=== PATIENT | female | born 1975 | race Caucasian/White ===

== ENCOUNTER 2020-12-11 17:38 | Emergency (ER) | payer BC, SELFPAY ==
[2020-12-11 17:46] VITALS: BP 126/85; PULSE 97; RESP 16; TEMP 36.7; O2SAT 98; BMI 34.5
[2020-12-11 18:32] VITALS: BP 132/79; PULSE 95; RESP 20; O2SAT 97
--- NOTE | 2020-12-11 18:36 | ECG_ITS ---
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
--- NOTE | 2020-12-11 18:36 | XR_ITS ---
WS: [id number] PORTABLE CHEST HISTORY: CP COMPARISON: 04/25/2018 Lungs are clear and well expanded. No pleural effusion or pneumothorax. Cardiac size: Normal. Mediastinum/Aorta: Normal mediastinum. No osseous abnormality seen. XR/XR chest 1V portable [id number] IMPRESSION: Unremarkable portable chest.
[2020-12-11 18:55] LABS: Basophils # 0.1 10^3/uL (0.0-0.1); Basophils % 0.4 %; Eosinophils # 0.3 10^3/uL (0.0-0.8); Eosinophils % 2.5 %; Hematocrit 41.7 % (37.0-47.0); Hemoglobin 13.8 g/dL (11.5-15.3); Lymphocytes # 2.8 10^3/uL (0.8-4.8); Lymphocytes % 24.6 %; Mean Corpuscular HGB Conc 33.1 g/dL (30.0-36.0); Mean Corpuscular Hemoglobin 30.6 pg (28.0-34.0); Mean Corpuscular Volume 92.5 fL (81-99); Mean Platelet Volume 11.1 fL (7.4-10.4); Monocytes # 0.6 10^3/uL (0.2-0.9); Monocytes % 5.4 %; Neutrophils # 7.51 10^3/uL (1.8-7.7); Neutrophils % 66.9 %; Nucleated Red Blood Cells % 0 %; Platelet Count 235 10^3/cmm (130-400); Red Blood Count 4.51 10^6/uL (4.1-5.3); Red Cell Distribution Width 13.2 % (12.1-15.1); White Blood Count 11.2 10^3/uL (4.0-10.0)
[2020-12-11 19:39] VITALS: BP 117/76; PULSE 88; PULSE 90; RESP 20; O2SAT 96
[2020-12-11 19:40] LABS: Troponin(5th) Baseline 6 ng/L (0-10)
[2020-12-11 20:25] LABS: Alanine Aminotransferase 18 U/L (0-33); Alkaline Phosphatase 110 IU/L (35-105); Anion Gap 16.8 (5-19); Aspartate Amino Transferase 11 U/L (0-32); Blood Urea Nitrogen 9 mg/dL (6-20); Carbon Dioxide 23 mmol/L (22-29); Chloride 100 mmol/L (98-107); Globulin 2.4 g/dL (1.3-4.6); Glomerular Filtration Rate 109.1 mL/min (90-130); Glucose 264 mg/dL (65-115); Lipase 38 U/L (13-60); NT Pro B Type Natriuretic Pept 21 pg/mL (0-125); Osmolality Calculated 290 mOsm/kg (285-295); Potassium 3.8 mmol/L (3.5-5.1); Sodium 136 mmol/L (136-145); Total Bilirubin 0.2 mg/dL (0.15-1.2); Total Protein 6.4 g/dL (6.6-8.7)
--- NOTE | 2020-12-11 20:36 | ECG_ITS ---
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 Measurements Intervals [place] Rate: 99 P: 34 UT: 144 QRS: -68 QRSD: 114 T: 45 QT: 352 QTc: 453 Interpretive Statements SINUS RHYTHM PATTERN CONSISTENT WITH PULMONARY DISEASE LEFT ANTERIOR FASCICULAR BLOCK [QRS AXIS <= -45, QR IN I, RS IN II] WARNING: DATA QUALITY MAY AFFECT INTERPRETATION Compared to ECG 04/25/2018 11:28:48 Left anterior fascicular block now present Indeterminate axis no longer present Electronically Signed On 12-12-2020 19:52:21 CDT by Mary Ortiz M.D. [id number] f
[2020-12-11 21:03] LABS: Troponin 5 2HR Delta 0 ABS# (0-10)
--- NOTE | 2020-12-11 21:30 | ED_ITS ---
HPI - Chest Pain General: Chief Complaint: Chest Pain Stated Complaint: CP, L ARM PAIN, PAIN GOING UP L SIDE OF NECK, H/A Time Seen by Provider: 12/11/20 18:20 Source: patient Mode of arrival: ambulatory Limitations: no limitations History of Present Illness: HPI narrative: 45-year-old female patient with a history of diabetes and hypertension who came to the emergency department with chest pain that started about 2 days ago. Pain is substernal, and radiates to her left antibiotic. She has some shortness of breath and the pain is worse on deep breathing. She denies diaphoresis, nausea or vomiting. She reports that about 6 months ago she was diagnosed with COVID-19 and ever since then she has not felt the same. MD complaint: chest pain Onset (ago): day(s) (2) Timing of current episode: episodic Prior episodes: Yes Onset: during rest Pain location: substernal Pain radiation: left arm Severity: moderate Quality: sharp Relieving factors: nothing Exacerbating factors: nothing Associated symptoms: Reports dyspnea; Deny abdominal pain, diaphoresis, fever(s), leg edema, nausea, palpitations, sense of impending doom, syncope or vomiting Treatment prior to arrival: none Review of Systems General: Reports: 10 or more systems reviewed and unremarkable except in HPI and below Const: Denies: fever(s) or diaphoresis Card: Denies: palpitations or syncope Resp: Reports: dyspnea GI: Denies: abdominal pain, nausea or vomiting Physical Exam Const: COMMON NORMALS: no acute distress, average body habitus, patient oriented x3, no limitations, healthy appearing, alert and well nourished HENMT: COMMON NORMALS: normocephalic, atraumatic and moist oral mucous membranes HEAD & SCALP: normocephalic and atraumatic Neck/C-Spine: COMMON NORMALS: no meningeal signs and no JVD Resp: COMMON NORMALS: normal respiratory effort, No retractions, No use of accessory muscles, clear to auscultation bilaterally and percussion normal AUSCULTATION: clear to auscultation bilaterally PERCUSSION: percussion normal Cardio: COMMON NORMALS: no JVD, regular rate, regular rhythm, S1 normal heart sound present, S2 normal heart sound present, No gallops present (Cardio), No clicks present (Cardio), No murmurs present (Cardio), No rub (Cardio) and Peripheral pulses 2+ throughout RATE: regular rate RHYTHM: regular rhythm HEART SOUNDS: S1 normal heart sound present and S2 normal heart sound present PERIPHERAL PULSES: Peripheral pulses 2+ throughout GI: COMMON NORMALS: Normal to inspection, nondistended, normoactive bowel sounds present, Soft to palpation, non-tender, No hepatosplenomegaly present, no masses and no bruits PALPATION: Yes Soft to palpation and Yes No hepatosplenomegaly present Extremity: COMMON NORMALS: normal to inspection, full ROM, capillary refill normal, no calf tenderness and no pedal edema Neuro: COMMON NORMALS: patient oriented x3 SENSORIUM/ORIENTATION: Yes alert MENINGEAL SIGNS: Yes no meningeal signs Skin: COMMON NORMALS: no rashes or lesions noted, no wounds, turgor normal, no jaundice, no petechiae and no mottling GENERAL SKIN EXAM: no rashes or lesions noted and turgor normal Course Reevaluation(s): Reevaluation #1: Discussed her lab and imaging findings with her, negative for acute findings. We will discharge her home with no new medication orders. She voiced understanding and is in agreement with the plan. Time: 21:30 Vital Signs: Vital signs: Vital Signs Temperature 98.1 F 12/11/20 17:46 Pulse Rate 82 12/11/20 21:51 Respiratory Rate 20 H 12/11/20 21:51 Blood Pressure 117/76 12/11/20 19:39 Pulse Oximetry 98 12/11/20 21:51 MDM - Chest Pain MDM Narrative: Medical decision making narrative: 45-year-old female who presented to the emergency department with chest pain. Evaluation in the emergency department was unremarkable and she is discharged home with no new orders. Medical Records: Attestation: I reviewed the patient's medical records. Lab Data: Attestation: I reviewed the patient's lab results. Labs: Lab Results 12/11/20 12/11/20 12/11/20 Range/Units 18:47 18:47 18:47 WBC 11.2 H (4.0-10.0) 10^3/ uL RBC 4.51 (4.1-5.3) 10^6/u L Hgb 13.8 (11.5-15.3) g/dL Hct 41.7 (37.0-47.0) % MCV 92.5 (81-99) fL MCH 30.6 (28.0-34.0) pg MCHC 33.1 (30.0-36.0) g/dL RDW 13.2 (12.1-15.1) % Plt Count 235 (130-400) 10^3/c mm MPV 11.1 H (7.4-10.4) fL Neut % (Auto) 66.9 % Lymph % (Auto) 24.6 % [place]cher % (Auto) 5.4 % Eos % (Auto) 2.5 % Baso % (Auto) 0.4 % Neut # (Auto) 7.51 (1.8-7.7) 10^3/u L Lymph # (Auto) 2.8 (0.8-4.8) 10^3/u L [place]cher # (Auto) 0.6 (0.2-0.9) 10^3/u L Eos # (Auto) 0.3 (0.0-0.8) 10^3/u L Baso # (Auto) 0.1 (0.0-0.1) 10^3/u L Nucleated RBC % (a uto) 0 % Nucleated RBCs # 0.0 /100WBC Sodium 136 (136-145) mmol/L Potassium 3.8 (3.5-5.1) mmol/L Chloride 100 (98-107) mmol/L Carbon Dioxide 23 (22-29) mmol/L Anion Gap 16.8 (5-19) BUN 9 (6-20) mg/dL Creatinine 0.6 (0.5-0.9) mg/dL GFR Calculation 109.1 (90-130) mL/min Glucose 264 H (65-115) mg/dL Calculated Osmolal ity 290 (285-295) mOsm/k g Calcium 9.0 (8.5-10.5) mg/dL Total Bilirubin 0.2 (0.15-1.2) mg/dL AST 11 (0-32) U/L ALT 18 (0-33) U/L Alkaline Phosphata se 110 H (35-105) IU/L Troponin T Baselin e 6 (0-10) ng/L Troponin T 120 Min [place] (0-10) ng/L Delta Troponin T (0-10) ABS# NT-Pro-B Natriuret Pep 21 (0-125) pg/mL Total Protein 6.4 L (6.6-8.7) g/dL Albumin 4.0 (3.5-5.2) g/dL Globulin 2.4 (1.3-4.6) g/dL Lipase 38 (13-60) U/L 12/11/20 Range/Units 20:26 WBC (4.0-10.0) 10^3/ uL RBC (4.1-5.3) 10^6/u L Hgb (11.5-15.3) g/dL Hct (37.0-47.0) % MCV (81-99) fL MCH (28.0-34.0) pg MCHC (30.0-36.0) g/dL RDW (12.1-15.1) % Plt Count (130-400) 10^3/c mm MPV (7.4-10.4) fL Neut % (Auto) % Lymph % (Auto) % [place] % (Auto) % Eos % (Auto) % Baso % (Auto) % Neut # (Auto) (1.8-7.7) 10^3/u L Lymph # (Auto) (0.8-4.8) 10^3/u L [place]cher # (Auto) (0.2-0.9) 10^3/u L Eos # (Auto) (0.0-0.8) 10^3/u L Baso # (Auto) (0.0-0.1) 10^3/u L Nucleated RBC % (a uto) % Nucleated RBCs # /100WBC Sodium (136-145) mmol/L Potassium (3.5-5.1) mmol/L Chloride (98-107) mmol/L Carbon Dioxide (22-29) mmol/L Anion Gap (5-19) BUN (6-20) mg/dL Creatinine (0.5-0.9) mg/dL GFR Calculation (90-130) mL/min Glucose (65-115) mg/dL Calculated Osmolal ity (285-295) mOsm/k g Calcium (8.5-10.5) mg/dL Total Bilirubin (0.15-1.2) mg/dL AST (0-32) U/L ALT (0-33) U/L Alkaline Phosphata se (35-105) IU/L Troponin T Baselin e (0-10) ng/L Troponin T 120 Min [place] 6.00 (0-10) ng/L Delta Troponin T 0 (0-10) ABS# NT-Pro-B Natriuret Pep (0-125) pg/mL Total Protein (6.6-8.7) g/dL Albumin (3.5-5.2) g/dL Globulin (1.3-4.6) g/dL Lipase (13-60) U/L Imaging Data^: CXR: Attestation: I personally reviewed and interpreted this imaging study as follows: My impression: no acute findings EKG Data^: EKG 1: Attestation: I personally reviewed and interpreted this EKG as follows: EKG interpretation date: 12/11/20 EKG interpretation time: 17:45 Prior EKG tracings: not available for review Interpretation: sinus rhythm HR [address] changes EKG 2: Attestation: I personally reviewed and interpreted this EKG as follows: EKG interpretation date: 12/11/20 EKG interpretation time: 19:05 Prior EKG tracings: available for review Interpretation: sinus rhythm HR [address] changes no significant change from earlier Discharge Plan Discharge Patient Disposition: Home Clinical Impression: Non-cardiac chest pain Condition: Stable Prescriptions: Continued buspirone 5 mg tablet 5 - 7.5 mg PO PRN PRN (Reason: Anxiety) RF: 0 atorvastatin 10 mg tablet 10 mg PO DAILY@2100 RF: 0 glipizide 10 mg tablet extended release 24hr 20 mg PO DAILY@0800 RF: 0 gabapentin 100 mg capsule 200 mg PO BEDTIME@2100 RF: 0 albuterol sulfate 90 mcg/actuation Hfa Aerosol Inhaler 2 puff INHALATION BEDTIME@2100 PRN (Reason: Shortness Of Breath) RF: 0 lisinopril 2.5 mg tablet 2.5 mg PO DAILY@0800 RF: 0 Levemir FlexTouch U-100 Insuln 100 unit/mL (3 mL) insulin pen 40 unit SUBCUT DAILY@0800 RF: 0 vit A-vit C-vit I-bimz-qxklga 7,160-113-100 okzg-ba-vqgy Tablet 1 tab PO DAILY@0800 RF: 0 Discharge Orders: Discharge ED (Routine); Ordered 12/11/20 Ordered By: Gaetano Mckee Referrals: Nina Phillip APRN [Primary Care Provider] - 1-3 days Discharge Diet: Usual diet Discharge Activity: Increase activity as tolerated Patient Instructions: Noncardiac Chest Pain (ED) Activity Restrictions/Additional Instructions: Turn for any new or worsening symptoms. Follow-up with your primary care provider within 3 days. Continue home medications. Coding Level of Care Code ED Optical Instrument Specialist for Chg Fwd Exam Comprehensive
[2020-12-11 21:51] VITALS: PULSE 82; RESP 20; O2SAT 98
== END 2020-12-11 21:52 | disposition home or self-care (01) ==
PROVIDERS: Emergency Provider Family Medicine; PCP Nurse Practitioner Family
DX: R07.89 Other chest pain (principal); Z79.4 Long term (current) use of insulin
CPT/HCPCS: 36415; 71045; 80053; 83690; 83880; 84484; 85025; 93005; 99284

== ENCOUNTER 2021-02-22 20:11 | Observation (INO) | payer BC, SELFPAY ==
[2021-02-22 21:11] VITALS: BP 129/90; PULSE 122; RESP 22; TEMP 36.7; O2SAT 96; BMI 34.7
--- NOTE | 2021-02-22 21:26 | XRR_ITS ---
PROCEDURE INFORMATION: Exam: XR Chest Exam date and time: 02/22/2021 9:26 PM Age: 45 years old Clinical indication: Shortness of breath; Additional info: SOB, cough x 2 days. PT had covid in April of 2020 TECHNIQUE: Imaging protocol: XR of the chest. Views: 1 view. COMPARISON: CR XR chest 1V portable [id number] 12/11/2020 6:53 PM FINDINGS: Lungs: Unremarkable. No consolidation. Pleural spaces: Unremarkable. No pleural effusion. No pneumothorax. Heart/Mediastinum: Unremarkable. No cardiomegaly. Bones/joints: Unremarkable. XR/XR chest 1V portable [id number] IMPRESSION: No acute findings.
--- NOTE | 2021-02-22 21:26 | ECG_ITS ---
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 Measurements Intervals [place] Rate: 127 P: 57 CO: 157 QRS: -74 QRSD: 98 T: 62 QT: 320 QTc: 467 Interpretive Statements SINUS TACHYCARDIA MARKED LEFT AXIS DEVIATION [QRS AXIS < -30] POSSIBLE ANTERIOR MYOCARDIAL INFARCTION [30 ms Q WAVE IN V3/V4, OR R < 0.2 mV IN V4], OF INDETERMINATE AGE Compared to ECG 12/11/2020 19:05:10 Myocardial infarct finding now present Sinus rhythm no longer present Electronically Signed On 02-23-2021 22:57:24 CDT by Lisset Meeks M.D. [id number] f
--- NOTE | 2021-02-22 21:32 | ED_ITS ---
HPI - SOB/Dyspnea General: Chief Complaint: Shortness of Breath/Dyspnea Stated Complaint: sob,congestion,cough Time Seen by Provider: 02/22/21 21:23 Source: patient Mode of arrival: ambulatory Limitations: no limitations History of Present Illness: HPI Narrative: 45-year-old female states she is a longtime smoker and gets bronchitis at times. States of last 2 days she has been having a nonproductive cough with a lot of wheezing and some dyspnea. States that her cough is worsened today. She denies any worsening improving factors. She denies any fevers. She has had no known sick contacts. She states this is like her bronchitis in the past. Associated symptoms: Deny abdominal pain, chest pain, fever(s), nausea or vomiting Review of Systems Const: Denies: fever(s), chills, body aches or change in appetite Eyes: Denies: blurry vision or eye discomfort ENMT: Denies: throat pain or dental pain Card: Denies: chest pain Resp: Reports: dyspnea, non-productive cough and wheezing GI: Denies: abdominal pain, nausea, vomiting or diarrhea : Denies: dysuria Musc: Denies: neck pain or back pain Skin/Breast: Denies: rash Neuro: Denies: headache(s) Psych: Denies: depression Ezequiel/Lymph: Denies: easy bruising All/Imm: Denies: urticaria Physical Exam Const: COMMON NORMALS: no acute distress, patient oriented x3 and healthy appearing HENMT: COMMON NORMALS: normocephalic and atraumatic HEAD & SCALP: normocephalic and atraumatic Eye: COMMON NORMALS: Equal, round and reactive pupils present and EOMs intact bilaterally PUPIL: Yes Equal, round and reactive pupils present Neck/C-Spine: COMMON NORMALS: full ROM and supple Chest: COMMONS NORMALS: normal inspection of the chest and normal palpation of entire chest wall Resp: COMMON NORMALS: normal respiratory effort, No retractions and No use of accessory muscles AUSCULTATION: wheezes Cardio: COMMON NORMALS: regular rate, regular rhythm and No murmurs present (Cardio) RATE: regular rate RHYTHM: regular rhythm GI: COMMON NORMALS: Normal to inspection, nondistended, normoactive bowel sounds present, Soft to palpation, non-tender and no masses PALPATION: Yes Soft to palpation Extremity: COMMON NORMALS: normal to inspection and full ROM Neuro: COMMON NORMALS: patient oriented x3, moves all extremities and no focal motor deficits Psych: COMMON NORMALS: mental status grossly normal, Normal thought process present and cooperative THOUGHT PROCESS: Normal thought process present Skin: COMMON NORMALS: no rashes or lesions noted and no wounds GENERAL SKIN EXAM: no rashes or lesions noted Course Vital Signs: Vital signs: Vital Signs Temperature 98.1 F 02/22/21 21:11 Pulse Rate 120 H 02/23/21 00:41 Respiratory Rate 18 02/23/21 00:41 Blood Pressure 115/75 02/23/21 00:41 Pulse Oximetry 94 02/23/21 00:41 MDM - SOB/Dyspnea MDM Narrative: Medical decision making narrative: Patient presents here with dyspnea likely COPD. She still requiring oxygen here after 2 breathing treatments. She has no signs of pneumonia or Covid. She has no signs of pulmonary embolism. I spoke to hospitalist and will admit at this time. Lab Data: Labs: Lab Results 02/22/21 02/22/21 Range/Units 22:37 22:37 WBC 11.9 H (4.0-10.0) 10^3/ uL RBC 4.99 (4.1-5.3) 10^6/u L Hgb 15.1 (11.5-15.3) g/dL Hct 44.5 (37.0-47.0) % MCV 89.2 (81-99) fL MCH 30.3 (28.0-34.0) pg MCHC 33.9 (30.0-36.0) g/dL RDW 13.3 (12.1-15.1) % Plt Count 251 (130-400) 10^3/c mm MPV 11.0 H (7.4-10.4) fL Neut % (Auto) 64.7 % Lymph % (Auto) 25.5 % [place] % (Auto) 7.8 % Eos % (Auto) 0.9 % Baso % (Auto) 0.8 % Neut # (Auto) 7.72 H (1.8-7.7) 10^3/u L Lymph # (Auto) 3.1 (0.8-4.8) 10^3/u L [place] # (Auto) 0.9 (0.2-0.9) 10^3/u L Eos # (Auto) 0.1 (0.0-0.8) 10^3/u L Baso # (Auto) 0.1 (0.0-0.1) 10^3/u L Nucleated RBC % (a uto) 0 % Nucleated RBCs # 0.0 /100WBC Sodium 136 (136-145) mmol/L Potassium 3.6 (3.5-5.1) mmol/L Chloride 98 (98-107) mmol/L Carbon Dioxide 24 (22-29) mmol/L Anion Gap 17.6 (5-19) BUN 6 (6-20) mg/dL Creatinine 0.6 (0.5-0.9) mg/dL GFR Calculation 109.1 (90-130) mL/min Glucose 173 H (65-115) mg/dL Calculated Osmolal ity 284 L (285-295) mOsm/k g Calcium 9.0 (8.5-10.5) mg/dL Total Bilirubin 0.5 (0.15-1.2) mg/dL AST 12 (0-32) U/L ALT 8 (0-33) U/L Alkaline Phosphata se 125 H (35-105) IU/L Total Protein 7.8 (6.6-8.7) g/dL Albumin 4.5 (3.5-5.2) g/dL Globulin 3.3 (1.3-4.6) g/dL Imaging Data^: CXR: Attestation: I personally reviewed and interpreted this imaging study as follows: My impression: no acute abnormality EKG Data^: EKG 1: Attestation: I personally reviewed and interpreted this EKG as follows: EKG Interpretation Date: 02/22/21 EKG interpretation time: 22:50 Interpretation: sinus tach hr [address] or t wave abnormalities qrs 98 qtc 395 Discharge Plan Discharge Patient Disposition: Admitted As Inpatient Admit Provider: Mara Osorio Clinical Impression: Acute exacerbation of chronic obstructive airways disease Condition: Stable Coding Level of Care Code ED Enterprise Integration Developer for Chg Fwd Exam Comprehensive
[2021-02-22 22:02] VITALS: PULSE 120; RESP 20; O2SAT 93
[2021-02-22] MEDS: ipratropium-albuterol 3 mL Neb INHALATION (22:02)
[2021-02-22 22:07] VITALS: PULSE 124; RESP 20; O2SAT 93
[2021-02-22 22:44] LABS: Basophils # 0.1 10^3/uL (0.0-0.1); Basophils % 0.8 %; Eosinophils # 0.1 10^3/uL (0.0-0.8); Eosinophils % 0.9 %; Hematocrit 44.5 % (37.0-47.0); Hemoglobin 15.1 g/dL (11.5-15.3); Lymphocytes # 3.1 10^3/uL (0.8-4.8); Lymphocytes % 25.5 %; Mean Corpuscular HGB Conc 33.9 g/dL (30.0-36.0); Mean Corpuscular Hemoglobin 30.3 pg (28.0-34.0); Mean Corpuscular Volume 89.2 fL (81-99); Monocytes # 0.9 10^3/uL (0.2-0.9); Monocytes % 7.8 %; Neutrophils # 7.72 10^3/uL (1.8-7.7); Neutrophils % 64.7 %; Nucleated Red Blood Cells % 0 %; Platelet Count 251 10^3/cmm (130-400); Red Blood Count 4.99 10^6/uL (4.1-5.3); Red Cell Distribution Width 13.3 % (12.1-15.1); White Blood Count 11.9 10^3/uL (4.0-10.0)
[2021-02-22 23:07] LABS: Alanine Aminotransferase 8 U/L (0-33); Albumin Level 4.5 g/dL (3.5-5.2); Alkaline Phosphatase 125 IU/L (35-105); Anion Gap 17.6 (5-19); Aspartate Amino Transferase 12 U/L (0-32); Blood Urea Nitrogen 6 mg/dL (6-20); Carbon Dioxide 24 mmol/L (22-29); Chloride 98 mmol/L (98-107); Globulin 3.3 g/dL (1.3-4.6); Glomerular Filtration Rate 109.1 mL/min (90-130); Glucose 173 mg/dL (65-115); Osmolality Calculated 284 mOsm/kg (285-295); Potassium 3.6 mmol/L (3.5-5.1); Sodium 136 mmol/L (136-145); Total Bilirubin 0.5 mg/dL (0.15-1.2); Total Protein 7.8 g/dL (6.6-8.7)
[2021-02-22 23:22] VITALS: PULSE 122; RESP 22; O2SAT 91
[2021-02-22 23:32] VITALS: BP 115/88; PULSE 124; RESP 22; O2SAT 91
[2021-02-23] VITALS (13 sets, daily range): BP systolic 100–122; BP diastolic 71–97; PULSE 92–122; RESP 16–20; TEMP 36.4–36.9; O2SAT 86–94
[2021-02-23] MEDS: cefTRIAXone 1,000 MG in sodium chloride 0.9% (plus) 50 ML 100 MG IV (00:34)
[2021-02-23] MEDS: azithromycin 500 MG in sodium chloride 0.9% 250 ML 250 MG IV (01:41)
--- NOTE | 2021-02-23 03:05 | PM.HP ---
Providers/Chief Complaint Admitting Physician: Mara Osorio MD Primary Care Provider: Nina Phillip APRN Chief Complaint: sob,congestion,cough History of Present Illness Chelsy Melendez is a 45 year old female who presented to the emergency room with chief complaint of difficulty breathing. She spent Thursday at the [facility] and then went to the [facility]. On she started having a dry cough. She says she is prone to bronchitis and usually gets it a couple of times a year. She tried to get an appointment with her primary care doctor but was not able to get 1. Her symptoms continued to progress with increasing cough and some low-grade fever and chills. She had nasal congestion alternating between clear and mucoid. Cough occasionally productive of very dark brown sputum. No blood noted. On Thursday night she was more short of breath and wheezing. She used her inhaler twice without any improvement and had acute worsening on Thursday night where she was not able to move much air. She felt like her heart was trying to beat out of her chest during this timeframe. Symptoms became bad enough she came to the emergency room. On arrival she was very tight and oxygen saturations were in the upper 80s. She has never been on oxygen before. She has had 1 prior hospitalization with bronchitis. She received continuous nebulizer treatment x2. Started having coughing after the first 1 and finally began to breathe better after the second 1. She received Solu-Medrol as well as a dose of Rocephin and azithromycin in the ER. She is being admitted for further care she continues to require a couple of liters of oxygen and remains tachycardic. She had Covid last April. Has had some nonrespiratory persistent symptoms from that. Her primary issues around it were related to headaches. She has not had Covid vaccine. Review of Systems Const: Reports: fever(s) (low grades thursday), chills and change in appetite Eyes: Denies: change in vision ENMT: Reports: nasal congestion and post nasal drip; Denies: throat pain Card: Reports: palpitations, edema, swelling of feet/ankles (Sometimes) and other (pressure when she was unable to breathe); Denies: chest pain Resp: Reports: productive cough (dark brown), non-productive cough, wheezing and chest congestion; Denies: dyspnea, pain on inspiration or hemoptysis GI: Reports: nausea; Denies: abdominal pain, vomiting, diarrhea or constipation : Denies: difficulty voiding Musc: Reports: muscle cramps and other (No calf pain) Skin/Breast: Denies: rash or sores Neuro: Reports: headache(s); Denies: difficulty walking Psych: Reports: anxiety (Rarely has to take something); Denies: depression Endo: Reports: other (Currently on menstrual cycle) Ezequiel/Lymph: Denies: easy bleeding Medications/Allergies Home Medications Medication Instructions Recorded Confirmed Last Taken Type albuterol sulfate 2 inh INHALATION Q6H 02/23/21 02/23/21 02/22/21 History albuterol sulfate 2.5 mg INHALATION Q6H PRN 02/23/21 02/23/21 Unknown History buspirone 5 mg PO BID PRN 02/23/21 02/23/21 Unknown History Allergies Allergy/AdvReac Type Severity Reaction Status Date / Time codeine Allergy ADR-Nightma Verified 12/11/20 17:50 re Influenza Virus Vaccines Allergy ADR-Vomitin Verified 12/11/20 17:50 g Additional Medication Information I personally reviewed home medication list and medications received day of admission thus far. PFSH Acute PFSH: Medical History (Updated 02/23/21 @ 06:00 by Mara Osorio MD) Anxiety COPD (chronic obstructive pulmonary disease) Diabetes mellitus, type II Currently diet controlled 3 para 3 Hiatal hernia History of COVID-19 (~04/2020) with some non respiratory persistent symptoms Hx of supraventricular tachycardia Surgical History (Updated 02/23/21 @ 03:11 by Mara Osorio MD) History of colonoscopy (~2016) History of esophagogastroduodenoscopy (EGD) (~2016) History of tubal ligation Family History (Updated 02/23/21 @ 05:26 by Mara Osorio MD) Father Cancer lung Mother Cancer lung Social History (Updated 02/23/21 @ 05:25 by Mara Osorio MD) Smoking and tobacco status: current every day smoker cigarettes Number of cigarettes per day: 11-20 Alcohol intake: current Alcohol intake frequency: holidays/special occasions only Substance/Drug Use: never Household members: spouse Marital status: Female Reproductive History: Date of last menstrual period: 02/19/21 Vitals/I&O/Wt Last Vital Signs Temp 98.1 F 02/23/21 01:30 Pulse 112 H 02/23/21 01:30 Resp 18 02/23/21 01:30 BP 120/84 02/23/21 01:30 Pulse Ox 90 02/23/21 01:30 02/22/21 02/22/21 02/23/21 14:59 22:59 06:59 Intake Total 50 / 50 Balance 50 / 50 Weight last 48 hrs Weight 86.183 kg Physical Exam Narrative: EXAM NARRATIVE: Constitutional: Awake and alert, cooperative HEENT: Pupils are equally reactive, nasopharynx with clear rhinorrhea, boggy turbinates and mild maxillary tenderness right side greater than left, oropharynx is clear Neck: Supple Respiratory: Scattered wheezes right more so than left, improved aeration after coughing Cardiovascular: Tachycardic but regular rhythm, no murmurs Abdomen: Soft, nontender, nondistended Extremities: No pitting edema, no calf tenderness Skin: Dry, no acute rashes or bruises Neuro: Speech clear, face symmetric, moves all extremities Psych: Normal affect Data : 02/22/21 22:37 02/22/21 22:37 Other Labs: Laboratory Results WBC 11.9 10^3/uL (4.0-10.0) H 02/22/21 22:37 RBC 4.99 10^6/uL (4.1-5.3) 02/22/21 22:37 Hgb 15.1 g/dL (11.5-15.3) 02/22/21 22:37 Hct 44.5 % (37.0-47.0) 02/22/21 22:37 MCV 89.2 fL (81-99) 02/22/21 22:37 MCH 30.3 pg (28.0-34.0) 02/22/21 22:37 MCHC 33.9 g/dL (30.0-36.0) 02/22/21 22:37 RDW 13.3 % (12.1-15.1) 02/22/21 22:37 Plt Count 251 10^3/cmm (130-400) 02/22/21 22:37 MPV 11.0 fL (7.4-10.4) H 02/22/21 22:37 Neut % (Auto) 64.7 % 02/22/21 22:37 Lymph % (Auto) 25.5 % 02/22/21 22:37 [place] % (Auto) 7.8 % 02/22/21 22:37 Eos % (Auto) 0.9 % 02/22/21 22:37 Baso % (Auto) 0.8 % 02/22/21 22:37 Neut # (Auto) 7.72 10^3/uL (1.8-7.7) H 02/22/21 22:37 Lymph # (Auto) 3.1 10^3/uL (0.8-4.8) 02/22/21 22:37 [place] # (Auto) 0.9 10^3/uL (0.2-0.9) 02/22/21 22:37 Eos # (Auto) 0.1 10^3/uL (0.0-0.8) 02/22/21 22:37 Baso # (Auto) 0.1 10^3/uL (0.0-0.1) 02/22/21 22:37 Nucleated RBC % (auto) 0 % 02/22/21 22:37 Nucleated RBCs # 0.0 /100WBC 02/22/21 22:37 Sodium 136 mmol/L (136-145) 02/22/21 22:37 Potassium 3.6 mmol/L (3.5-5.1) 02/22/21 22:37 Chloride 98 mmol/L (98-107) 02/22/21 22:37 Carbon Dioxide 24 mmol/L (22-29) 02/22/21 22:37 Anion Gap 17.6 (5-19) 02/22/21 22:37 BUN 6 mg/dL (6-20) 02/22/21 22:37 Creatinine 0.6 mg/dL (0.5-0.9) 02/22/21 22:37 GFR Calculation 109.1 mL/min (90-130) 02/22/21 22:37 Glucose 173 mg/dL (65-115) H 02/22/21 22:37 Calculated Osmolality 284 mOsm/kg (285-295) L 02/22/21 22:37 Calcium 9.0 mg/dL (8.5-10.5) 02/22/21 22:37 Total Bilirubin 0.5 mg/dL (0.15-1.2) 02/22/21 22:37 AST 12 U/L (0-32) 02/22/21 22:37 ALT 8 U/L (0-33) 02/22/21 22:37 Alkaline Phosphatase 125 IU/L (35-105) H 02/22/21 22:37 Total Protein 7.8 g/dL (6.6-8.7) 02/22/21 22:37 Albumin 4.5 g/dL (3.5-5.2) 02/22/21 22:37 Globulin 3.3 g/dL (1.3-4.6) 02/22/21 22:37 Impressions Chest X-Ray 02/22/21 21:26 IMPRESSION: No acute findings. EKG was sinus tachycardia at 127 bpm with some nonspecific changes A&P Assessment and plan (1) Acute exacerbation of chronic obstructive airways disease: With acute bronchitis and I suspect that she may have a degree of some sinusitis or at the very least allergy symptoms. Had hypoxemia requiring oxygen due to what sounds like severe bronchospasm. Improving with current treatment. She has a nebulizer machine at home and some albuterol for this as well as an albuterol inhaler. Status: Acute (2) Diabetes mellitus, type II: Currently diet controlled. She has been out of her medications for a while. She is intolerant of Metformin due to GI symptoms. She had previously been on glipizide and some Levemir. She has lost some weight and her blood sugars have improved. She does have a glucometer at home. Status: Chronic (3) Nicotine dependence, cigarettes, with other nicotine-induced disorders: Status: Chronic Additional A&P Information Currently without any of her usual home medications due to changing insurance and primary provider -out of lisinopril and statin therapy (which she says was due to her diabetes rather than having actual hypertension and hyperlipidemia), glipizide and Levemir Family history of both parents dying from lung cancer Observation admission Continue breathing treatments including some inhaled steroids Flonase and Claritin Augmentin Prednisone Flutter Wean oxygen as able, do not currently anticipate that she will require oxygen therapy upon discharge Sliding scale insulin currently, monitoring blood sugars closely We will need to resume diabetic treatment at home particularly in the setting of being on steroids, had been on glipizide previously and has been on insulin in the past though reports improved blood sugars with weight loss Check hemoglobin A1c Would benefit from resumption of LEIDY inhibitor and statin Check lipid panel Troponins and BNP were normal in the emergency room Repeat EKG Discussed with patient the importance of smoking cessation not only for her pulmonary health but particularly given her family history with both of her parents dying of lung cancer. She would benefit from low-dose CT scan for screening purposes though is under current recommended screening guidelines. We discussed nicotine patch. Time spent 4 minutes regarding smoking cessation. Supportive care otherwise DVT prophylaxis: Lovenox Plans, findings and concerns discussed with patient and she was given an opportunity to ask questions. Anticipated Disposition: Home Code Status: Full code Attestations Medical Necessity Statement*: Currently anticipate a stay less than two midnights in a patient with acute bronchitis/COPD who required 2 continuous nebulizer treatments in the emergency room as well as some oxygen supplementation. Coding Level of Care Code Acute [employer] Operator for Carol Roy Diagnoses Acute exacerbation of chronic obstructive airways disease J44.1 Diabetes mellitus, type II E11.9 Nicotine dependence, cigarettes, with other nicotine-induced disorders F17.218
[2021-02-23] MEDS: enoxaparin 40 mg/0.4 mL Syringe SUBCUT (06:38)
[2021-02-23] MEDS: sodium chlor 0.9% + KCl 20 mEq 20 MEQ/1,000 ML BAG 75 MEQ IV (06:40)
[2021-02-23] MEDS: nicotine 21 mg Patch 1 PATCH TRANSDERMA (06:44)
[2021-02-23 06:57] LABS: Glucose Point of Care 276 mg/dL (70-110)
[2021-02-23 08:06] LABS: Chol HDL Ratio 8.35 mg/dL (0.0-4.40); Cholesterol 217 mg/dL (0-200); HDL Cholesterol 26 mg/dL (60-100); LDL Cholesterol Calculated 159 mg/dL (50-129); LDL HDL Ratio 6.12 RATIO (0.00-3.22); Triglycerides 162 mg/dL (0-150)
[2021-02-23 08:11] LABS: Estmated Average Glucose 186; Hemoglobin A1C 8.1 % (4.0-6.0)
[2021-02-23] MEDS: ipratropium-albuterol 3 mL Neb INHALATION (08:53)
[2021-02-23] MEDS: budesonide 0.5 mg/2 mL Neb INHALATION (08:53)
[2021-02-23] MEDS: amoxicillin-clav 875-125 mg Tablet 1 TAB PO (09:21)
[2021-02-23] MEDS: predniSONE 20 mg Tablet 40 MG PO (09:21)
[2021-02-23] MEDS: loratadine 10 mg Tablet PO (09:22)
[2021-02-23] MEDS: fluticasone nasal spray 16gm Btl 2 SPRAY NASAL (09:23)
[2021-02-23 11:30] LABS: Glucose Point of Care 371 mg/dL (70-110)
--- NOTE | 2021-02-23 12:17 | P.DS_ITS ---
Discharge Providers Date of Admission: 02/23/21 00:17 Date of Discharge: February 23, 2021 Attending Provider at Admission: Mara Osorio MD Attending Provider at Discharge: Marco Lund Primary Care Provider: Nina Phillip APRN Diagnoses at Discharge Discharge Diagnosis (1) Acute exacerbation of chronic obstructive airways disease: Status: Acute (2) Diabetes mellitus, type II: Status: Chronic Permanent problem details: Currently diet controlled (3) Nicotine dependence, cigarettes, with other nicotine-induced disorders: Status: Chronic Reason for Visit Reason for Visit: sob,congestion,cough Hospital Course Hospital Course Pleasant 45-year-old lady with history of COPD, diabetes diet-controlled, current smoker, prior COVID-19 episode, was admitted due to shortness of breath, initially dry cough, with history of bronchitis, with significant wheezing, with exacerbation of COPD, unremarkable chest x-ray, was started on oral steroids, antibiotic, breathing treatments, oxygen support at 2 L, and is feeling better. Was observed in the hospital. Today wheezing has almost entirely subsided. Still diminished air entry, however, subjectively seen doing much better. Ambulating in the room. Currently eating lunch. Feels safe to return home. We will give her a prescription of Augmentin to continue after discharge. Prednisone taper. She has a nebulizer at home, will give her DuoNeb prescription. She is asked to then discuss with primary care provider to switch scheduled prescriptions to something like Spiriva. She needs to quit smoking. Please assist her with this difficult task. Nicotine patches are prescribed. Home O2 evaluation is requested at discharge. Continue follow-up regarding diabetes. A1c in the hospital noted 8.1. Prescription provided for lisinopril and statin. Physical Exam Const: COMMON NORMALS: no acute distress and patient oriented x3 HENMT: COMMON NORMALS: oropharynx normal Neck/C-Spine: COMMON NORMALS: no JVD Resp: COMMON NORMALS: normal respiratory effort and clear to auscultation bilaterally EFFORT & INSPECTION: Yes able to speak in complete sentences AUSCULTATION: clear to auscultation bilaterally and diminished lung sounds (But decent air entry) Cardio: COMMON NORMALS: no JVD, regular rhythm, S1 normal heart sound present, S2 normal heart sound present and No murmurs present (Cardio) RHYTHM: regular rhythm HEART SOUNDS: S1 normal heart sound present and S2 normal heart sound present GI: COMMON NORMALS: Normal to inspection, nondistended, normoactive bowel sounds present, Soft to palpation and non-tender PALPATION: Yes Soft to palpation Extremity: COMMON NORMALS: no joint enlargement and no pedal edema Neuro: COMMON NORMALS: patient oriented x3 and moves all extremities Skin: COMMON NORMALS: no rashes or lesions noted GENERAL SKIN EXAM: no rashes or lesions noted Discharge Data Data Completed and Pending: Completed Studies During Hospitalization Category Date Time Status XR chest 1V marguerite ble [id number] Urgent Exams 02/22/21 21:26 Completed Labs from last 24 hours 02/23/21 02/23/21 02/22/21 10:53 06:17 22:37 WBC RBC Hgb Hct MCV MCH MCHC RDW Plt Count MPV Neut % (Auto) Lymph % (Auto) [place] % (Auto) Eos % (Auto) Baso % (Auto) Neut # (Auto) Lymph # (Auto) [place] # (Auto) Eos # (Auto) Baso # (Auto) Nucleated RBC % (a uto) Nucleated RBCs # Sodium Potassium Chloride Carbon Dioxide Anion Gap BUN Creatinine GFR Calculation Glucose POC Glucose 371 H 276 H Estimat Average Gl ucose Hemoglobin A1c Calculated Osmolal ity Calcium Total Bilirubin AST ALT Alkaline Phosphata se Total Protein Albumin Globulin Triglycerides 162 H Cholesterol 217 H LDL Cholesterol, C alc 159 H HDL Cholesterol 26 L LDL/HDL Ratio 6.12 H Cholesterol/HDL Ra ronnie 8.35 H 02/22/21 02/22/21 02/22/21 22:37 22:37 22:37 WBC 11.9 H RBC 4.99 Hgb 15.1 Hct 44.5 MCV 89.2 MCH 30.3 MCHC 33.9 RDW 13.3 Plt Count 251 MPV 11.0 H Neut % (Auto) 64.7 Lymph % (Auto) 25.5 [place] % (Auto) 7.8 Eos % (Auto) 0.9 Baso % (Auto) 0.8 Neut # (Auto) 7.72 H Lymph # (Auto) 3.1 [place] # (Auto) 0.9 Eos # (Auto) 0.1 Baso # (Auto) 0.1 Nucleated RBC % (a uto) 0 Nucleated RBCs # 0.0 Sodium 136 Potassium 3.6 Chloride 98 Carbon Dioxide 24 Anion Gap 17.6 BUN 6 Creatinine 0.6 GFR Calculation 109.1 Glucose 173 H POC Glucose Estimat Average Gl ucose 186 Hemoglobin A1c 8.1 H Calculated Osmolal ity 284 L Calcium 9.0 Total Bilirubin 0.5 AST 12 ALT 8 Alkaline Phosphata se 125 H Total Protein 7.8 Albumin 4.5 Globulin 3.3 Triglycerides Cholesterol LDL Cholesterol, C alc HDL Cholesterol LDL/HDL Ratio Cholesterol/HDL Ra ronnie Vitals: Last Vital Signs Temp 98.0 F 02/23/21 11:25 Pulse 104 H 02/23/21 11:25 Resp 18 02/23/21 11:25 BP 122/74 02/23/21 11:25 Pulse Ox 92 02/23/21 11:25 Discharge Plan Discharge Patient Disposition: Home Condition: Stable Prescriptions: New ipratropium-albuterol 0.5 mg-3 mg(2.5 mg base)/3 mL Solution For Nebulization 3 ml inhalation Q4H PRN (Reason: Shortness Of Breath) Qty: 90 RF: 3 ipratropium-albuterol 0.5 mg-3 mg(2.5 mg base)/3 mL Solution For Nebulization 3 ml inhalation Q6H.RESPIRATORY Qty: 90 RF: 3 amoxicillin-pot clavulanate 875-125 mg Tablet 1 tab PO BID Qty: 12 RF: 0 lisinopril 2.5 mg tablet 2.5 mg PO DAILY Qty: 90 RF: 0 nicotine 21 mg/24 hr Patch 24 Hour 1 patch transdermal DAILY Qty: 30 RF: 0 prednisone 20 mg Tablet See Rx Instructions .ROUTE .COMPLEX Qty: 11 RF: 0 atorvastatin 40 mg tablet 40 mg PO DAILY Qty: 90 RF: 0 Continued buspirone 5 mg tablet 5 mg PO BID PRN (Reason: Anxiety) RF: 0 albuterol sulfate 90 mcg/actuation HFA aerosol inhaler 2 inh INHALATION Q6H RF: 0 Discontinued albuterol sulfate 2.5 mg /3 mL (0.083 %) solution for nebulization 2.5 mg inhalation Q6H PRN (Reason: Shortness Of Breath) RF: 0 Discharge Orders: Discharge Order (Routine); Ordered 02/23/21 Ordered By: Marco Lund Referrals: Karo Brooks APN [Referring] - 4-7 days Discharge Diet: Diabetic Discharge Activity: Oxygen as instructed Patient Instructions: How to Stop Smoking (GEN), Cigarette Smoking and Your Health (GEN) Activity Restrictions/Additional Instructions: Please stop smoking. Continued smoking will lead to deterioration of the condition of your lungs, worsening lung disease, in addition to other risks including cardiovascular like heart attack, stroke, as well as a number of different cancers. Please continue to work with your primary provider to help you quit smoking. Currently please continue and complete antibiotic course, prednisone taper. Continue nebulizations over the next 5-7 days until you are feeling better, subsequently 1 following up with your primary doctor, please discuss to switch you to inhaler like Spiriva in addition to the rescue albuterol inhaler. Continue follow-up with your primary provider with regards to diabetes. Your A1c is 8.1. In case you develop worsening shortness of breath, or other concerning symptoms, seek medical attention. Discharge Attestations Time Spent in Discharge Care*: greater than 30 min Quality Metrics Clinical Quality Measures During this hospital stay, did patient experience: None Coding Level of Care Code Acute [facility] note Diagnoses Acute exacerbation of chronic obstructive airways disease J44.1 Diabetes mellitus, type II E11.9 Nicotine dependence, cigarettes, with other nicotine-induced disorders F17.218
--- NOTE | 2021-02-23 15:59 | DCPLANNER ---
Did not get a chance to fully interview pt however she needs 02 for d/c. She was presented with a data performance and choice form. [facility], the order was faxed and Jacky brought it over.
--- NOTE | 2021-02-25 18:08 | PC.RESP ---
Smoking Cessation information sent to patient.
== END 2021-02-23 13:55 | disposition home or self-care (01) ==
LOC: ER 02-23 00:24 → MEDSURG 02-23 00:27
PROVIDERS: Admitting Provider Hospitalist; Emergency Provider Emergency Medicine; PCP Nurse Practitioner Family; Visit Provider Internal Medicine
DX: J44.1 Chronic obstructive pulmonary disease with (acute) exacerbation (principal); E11.9 Type 2 diabetes mellitus without complications; F17.218 Nicotine dependence, cigarettes, with other nicotine-induced disorders; Z86.16 Personal history of COVID-19
CPT/HCPCS: 36416; 71045; 80053; 80061; 82962; 83036; 85025; 93005; 94640; 96365; 96366; 96367; 96372; 99285; G0378; J0456; J0696; J1650; J1815; J2930; J7050; J7512; J7611; J7626

== ENCOUNTER 2021-02-27 08:14 | Outpatient (CLI) | payer BC, SELFPAY ==
--- NOTE | 2021-02-27 08:53 | CT_ITS ---
WS: [id number] CT CHEST ANGIOGRAPHY WITH REFORMATS HISTORY: SHORTNESS OF BREATH TECHNIQUE: Contiguous axial images are obtained through the chest during arterial injection of intrav enous contrast. Images are reconstructed to evaluate the pulmonary arteries. MIP imaging also reviewe d. All CT scans at [facility] use at least one of these dose optimization techniques: aut omated exposure control; mA and/or kV adjustment per patient size (includes targeted exams where dose is matched to clinical indication); or iterative reconstruction. CONTRAST: Omnipaque 350; 95 mL IV. DLP: 729.43 mGycm COMPARISON: 04/10/2017 Good opacification of the pulmonary arteries. There are no filling defects. Pulmonary artery size is normal. Normal size aorta. Aberrant RIGHT subclavian artery courses posterior to the esophagus. Kaylee l variant LEFT vertebral artery arises directly from the arch. Heart size is normal. Lungs are hyperinflated. Groundglass areas scattered throughout both lungs. Greatest in the upper lob es. There is also an area of subsegmental atelectasis at the medial RIGHT upper lobe. Atelectasis rena ng the RIGHT heart border. Mildly prominent lymph node at 14 mm in the RIGHT suprahilar location. Sma ller lymph nodes in the LEFT suprahilar region. Similar lymph node on prior study of 04/10/2017. Subse gmental atelectasis at the lingula. Low-attenuation throughout the liver with variable density. Probably due to hepatic steatosis. Visual ized portions of the upper abdomen are negative. Mild increase in thoracic kyphosis. Mild thoracic spondylosis.. CT/CT angio chest PE protcl [id number] IMPRESSION: 1. No pulmonary embolism. 2. Scattered groundglass opacifications greatest in the upper lung bustamante. Hyp ersensitivity pneumonitis and infection should be considered. Pneumonitis is orr perimposed on a background of emphysema. 3. Subsegmental atelectasis in the medial RIGHT upper lobe and indeterminate b ilateral hilar lymph nodes. Hilar lymph node greatest on the RIGHT measuring 14 mm similar to the prior study from 2017. Recommend follow-up chest CT with IV contrast in 3-4 months. If atelectasis does not improve bronchoscopy may be nec essary. 4. Aberrant RIGHT subclavian artery. 5. Hepatic steatosis.
[2021-02-27] MEDS: iohexol 350 mg/mL 100 mL Btl IV (09:12)
== END 2021-02-27 08:15 | disposition home or self-care (01) ==
PROVIDERS: PCP Nurse Practitioner Family; Visit Provider Nurse Practitioner Family
DX: R06.02 Shortness of breath (principal); K76.0 Fatty (change of) liver, not elsewhere classified; Q27.8 Other specified congenital malformations of peripheral vascular system; J98.11 Atelectasis
CPT/HCPCS: 71275; Q9967

== ENCOUNTER 2021-04-03 20:55 | Emergency (ER) | payer BC, SELFPAY ==
[2021-04-03 21:27] VITALS: BP 136/88; PULSE 118; RESP 17; TEMP 37.4; O2SAT 94; BMI 32.9
--- NOTE | 2021-04-03 21:50 | W.ED.COVID ---
HPI - COVID General: Chief Complaint: COVID symptoms Stated Complaint: covid symptoms/direct covid exposure Time Seen by Provider: 04/03/21 21:50 Triage information: Has fever, cough or shortness of breath. Exposure to COVID + person last 14 days History of Present Illness: HPI Narrative: 45-year-old female comes in today for complaints of sinus pressure, body aches, and headache. Patient has a history of Covid last year in April. Patient has had recent exposure with her grandson and hvac design mechanical engineer. Patient reports symptoms started on Thursday. Patient appears mildly unwell but not toxic. Patient does have a history of COPD and tobacco dependence. COVID 19 common symptoms: positive throat pain COVID Results: SARS-CoV-2 Antigen (Rapid) Positive (Negative) H 04/03/21 22:20 04/03/21 Review of Systems General: Reports: 10 or more systems reviewed and unremarkable except in HPI and below ENMT: Reports: throat pain, ear or mastoid pain and nasal discharge [facility] ED PFSH: Medical History (Updated 04/03/21 @ 23:09 by ETIENNE Laureano) Anxiety COPD (chronic obstructive pulmonary disease) Diabetes mellitus, type II Currently diet controlled 3 para 3 Hiatal hernia History of COVID-19 (~04/2020) with some non respiratory persistent symptoms Hx of supraventricular tachycardia Surgical History (Updated 02/23/21 @ 03:11 by Mara Osorio MD) History of colonoscopy (~2016) History of esophagogastroduodenoscopy (EGD) (~2016) History of tubal ligation Family History (Updated 02/23/21 @ 05:26 by Mara Osorio MD) Father Cancer lung Mother Cancer lung Social History (Updated 02/23/21 @ 05:25 by Mara Osorio MD) Smoking and tobacco status: current every day smoker cigarettes Alcohol intake: current Alcohol intake frequency: holidays/special occasions only Household members: spouse Marital status: Female Reproductive History: Date of last menstrual period: 02/19/21 Physical Exam Const: COMMON NORMALS: no acute distress and patient oriented x3 GENERAL APPEARANCE: cooperative HENMT: COMMON NORMALS: normocephalic, TM's normal bilaterally and Normal external nose present HEAD & SCALP: normal to inspection and normocephalic NOSE: Normal external nose present TYMPANIC MEMBRANE: TM's normal bilaterally MOUTH: Normal oral and palatal mucosa present THROAT: posterior oropharynx normal Eye: GENERAL EYE: appearance normal, both eyes and all related structures Neck/C-Spine: COMMON NORMALS: full ROM Lymph: LYMPHATIC: no lymphadenopathy noted Chest: COMMONS NORMALS: normal inspection of the chest Resp: COMMON NORMALS: normal respiratory effort EFFORT & INSPECTION: Yes able to speak in complete sentences AUSCULTATION: wheezes Cardio: COMMON NORMALS: regular rate and regular rhythm RATE: regular rate RHYTHM: regular rhythm GI: COMMON NORMALS: non-tender Back/Pelvis: COMMON NORMALS: thoracic and lumbar spine normal to inspection Extremity: COMMON NORMALS: normal to inspection Neuro: COMMON NORMALS: patient oriented x3 and moves all extremities Psych: COMMON NORMALS: mental status grossly normal and cooperative Skin: COMMON NORMALS: no rashes or lesions noted GENERAL SKIN EXAM: no rashes or lesions noted Course Vital Signs: Vital signs: Vital Signs Temperature 98.7 F 04/03/21 23:31 Pulse Rate 119 H 04/03/21 23:31 Respiratory Rate 18 04/03/21 23:31 Blood Pressure 139/90 04/03/21 23:31 Pulse Oximetry 95 04/03/21 23:31 MDM - COVID MDM Narrative: Medical decision making narrative: 45-year-old female comes in today with complaints of sinus headache, nasal drainage and sore throat, and some mild shortness of breath. Patient does have a history of COPD. Patient also has a history of COVID-19 in April 2020. On exam patient has wheezing throughout lung [place]. Although this is patient's normal for due to her continued smoking. Patient appears well. Patient appears no acute distress. Vital signs are normal. Differential diagnosis includes but not limited to COVID-19, asthma, exacerbation of COPD, seasonal allergies. COVID-19 test was positive. Patient's vital signs were normal. No further testing was done at this time. Patient was in no acute distress and was alert oriented talking well. Patient was suggested to go ahead and get monoclonal antibody infusion due to her history. Patient reported understanding agreed to plan. Case management will assist with follow-up for infusion of monoclonal antibodies. Lab Data: Labs: Lab Results 04/03/21 Range/Units 22:20 SARS-CoV-2 Ag (Rap id) Positive H (Negative) COVID Results: SARS-CoV-2 Antigen (Rapid) Positive (Negative) H 04/03/21 22:20 04/03/21 Discharge Plan Discharge Patient Disposition: Home Clinical Impression: COVID-19 Condition: Stable Prescriptions: No Action buspirone 5 mg tablet 5 mg PO BID PRN (Reason: Anxiety) RF: 0 albuterol sulfate 90 mcg/actuation HFA aerosol inhaler 2 inh INHALATION Q6H RF: 0 ipratropium-albuterol 0.5 mg-3 mg(2.5 mg base)/3 mL Solution For Nebulization 3 ml inhalation Q6H.RESPIRATORY Qty: 90 RF: 3 ipratropium-albuterol 0.5 mg-3 mg(2.5 mg base)/3 mL Solution For Nebulization 3 ml inhalation Q4H PRN (Reason: Shortness Of Breath) Qty: 90 RF: 3 amoxicillin-pot clavulanate 875-125 mg Tablet 1 tab PO BID Qty: 12 RF: 0 prednisone 20 mg Tablet See Rx Instructions .ROUTE .COMPLEX Qty: 11 RF: 0 nicotine 21 mg/24 hr Patch 24 Hour 1 patch transdermal DAILY Qty: 30 RF: 0 lisinopril 2.5 mg tablet 2.5 mg PO DAILY Qty: 90 RF: 0 atorvastatin 40 mg tablet 40 mg PO DAILY Qty: 90 RF: 0 Discharge Orders: Discharge ED (Routine); Ordered 04/03/21 Ordered By: Brady العراقي Discharge Diet: Usual diet Discharge Activity: Increase activity as tolerated Patient Instructions: Viral Syndrome (ED), Opioid Safety Activity Restrictions/Additional Instructions: Drink plenty of fluids. Use acetaminophen and ibuprofen for pain and discomfort. Continue with routine medications as directed. Follow-up with primary care as needed. Case management will contact you regarding monoclonal antibody infusion. Stand Alone Forms: Work/School Release Coding Level of Care Code ED Regional Facilities Manager for Carol Fwd Exam Comprehensive
[2021-04-03 22:49] LABS: SARS Covid-2 Antigen Positive (Negative)
[2021-04-03 23:31] VITALS: BP 139/90; PULSE 119; RESP 18; TEMP 37.1; O2SAT 95
--- NOTE | 2021-04-04 10:08 | DCPLANNER ---
manager of employee relations had order to schedule the monoclonal antibody infusion. manager of employee relations faxed order to centralized scheduling so that it could be scheduled.
== END 2021-04-03 23:32 | disposition home or self-care (01) ==
PROVIDERS: Emergency Provider Nurse Practitioner Family
DX: U07.1 COVID-19 (principal); J44.9 Chronic obstructive pulmonary disease, unspecified; E11.9 Type 2 diabetes mellitus without complications; F17.210 Nicotine dependence, cigarettes, uncomplicated
CPT/HCPCS: 87426; 99282

== ENCOUNTER 2021-04-09 05:04 | Outpatient (CLI) | payer BC, SELFPAY ==
[2021-04-09 05:40] VITALS: BP 134/94; PULSE 98; RESP 16; TEMP 36.8; O2SAT 97; BMI 32.9
--- NOTE | 2021-04-09 07:03 | W.ED.GENADLT ---
HPI - General Adult History of Present Illness: HPI narrative: This patient presents to the emergency department for outpatient monoclonal antibody infusion due to COVID-19. Discussed at length with patient about signs and symptoms and any allergic reaction responses. Patient had no further questions and elected to proceed with monoclonal antibody infusion. Nursing staff will monitor. Patient has had no shortness of breath no fever. Pulse ox greater than 92% on room air MD complaint: Monoclonal antibody infusion for COVID-19 Associated symptoms: Reports cough; Deny chest pain, dyspnea, headache(s), nausea, rash, palpitations or vomiting Review of Systems General: Reports: 10 or more systems reviewed and unremarkable except in HPI and below Const: Denies: fever(s), chills, body aches or fatigue Eyes: Denies: change in vision or blurry vision ENMT: Denies: throat pain, hoarseness or mouth pain Card: Denies: chest pain, palpitations, irregular heart rhythm, edema, swelling of feet/ankles or lightheadedness Resp: Denies: dyspnea, productive cough, non-productive cough, wheezing or pain on inspiration GI: Denies: abdominal pain, nausea or vomiting : Denies: flank pain, difficulty voiding, dysuria, urinary frequency, urinary urgency or urinary hesitancy Musc: Denies: neck pain, back pain, extremity pain, extremity swelling, joint pain, joint swelling, joint redness, joint warmth or limited range of motion Skin/Breast: Denies: rash, pruritus, erythema or skin tenderness Neuro: Denies: headache(s), numbness in extremities or weakness in extremities Psych: Denies: anxiety or depression PFSH ED PFSH: Medical History Anxiety COPD (chronic obstructive pulmonary disease) Diabetes mellitus, type II Currently diet controlled 3 para 3 Hiatal hernia History of COVID-19 (~04/2020) with some non respiratory persistent symptoms Hx of supraventricular tachycardia Surgical History History of colonoscopy (~2016) History of esophagogastroduodenoscopy (EGD) (~2017) History of tubal ligation Family History Father Cancer lung Mother Cancer lung Social History Smoking and tobacco status: current every day smoker cigarettes Alcohol intake: current Alcohol intake frequency: holidays/special occasions only Household members: spouse Marital status: Female Reproductive History: Date of last menstrual period: 02/19/21 Physical Exam Const: COMMON NORMALS: no acute distress, average body habitus, patient oriented x3, no limitations, healthy appearing, alert and well nourished HENMT: COMMON NORMALS: normocephalic, atraumatic, hearing grossly normal bilaterally, external ears normal, EAC's normal, TM's normal bilaterally, Normal external nose present, Normal nasal mucous membranes and turbinates present, moist oral mucous membranes, oropharynx normal, dentition normal and gingiva normal HEAD & SCALP: normocephalic and atraumatic NOSE: Normal external nose present and Normal nasal mucous membranes and turbinates present EXTERNAL EAR: Yes external ears normal EXTERNAL AUDITORY CANAL: EAC's normal TYMPANIC MEMBRANE: TM's normal bilaterally Neck/C-Spine: COMMON NORMALS: full ROM, no lymphadenopathy, supple, no meningeal signs, no JVD, Thyroid normal and No carotid bruits THYROID: Thyroid normal Chest: COMMONS NORMALS: normal inspection of the chest, normal palpation of entire chest wall, normal inspection of the breasts and normal palpation of the breasts Breast/axilla inspection: Yes normal inspection of the breasts BREAST/AXILLA PALPATION: Yes normal palpation of the breasts Resp: COMMON NORMALS: normal respiratory effort, No retractions, No use of accessory muscles, clear to auscultation bilaterally and percussion normal AUSCULTATION: clear to auscultation bilaterally PERCUSSION: percussion normal Cardio: COMMON NORMALS: no JVD, regular rate, regular rhythm, S1 normal heart sound present, S2 normal heart sound present, No gallops present (Cardio), No clicks present (Cardio), No murmurs present (Cardio), No rub (Cardio) and Peripheral pulses 2+ throughout RATE: regular rate RHYTHM: regular rhythm HEART SOUNDS: S1 normal heart sound present and S2 normal heart sound present PERIPHERAL PULSES: Peripheral pulses 2+ throughout GI: COMMON NORMALS: Normal to inspection, nondistended, normoactive bowel sounds present, Soft to palpation, non-tender, No hepatosplenomegaly present, no masses and no bruits PALPATION: Yes Soft to palpation and Yes No hepatosplenomegaly present Back/Pelvis: COMMON NORMALS: thoracic and lumbar spine normal to inspection, no thoracic nor lumbar tenderness, thoraco-lumbar ROM normal and straight leg raise negative bilaterally Extremity: COMMON NORMALS: normal to inspection, full ROM, capillary refill normal, no joint enlargement, no clubbing, cyanosis or edema, no calf tenderness and no pedal edema Neuro: COMMON NORMALS: patient oriented x3 SENSORIUM/ORIENTATION: Yes alert MENINGEAL SIGNS: Yes no meningeal signs Course Vital Signs: Vital signs: Vital Signs Temperature 98.3 F 04/09/21 05:40 Pulse Rate 98 04/09/21 05:40 Respiratory Rate 16 04/09/21 05:40 Blood Pressure 134/94 04/09/21 05:40 Pulse Oximetry 97 04/09/21 05:40 Discharge Plan Discharge Prescriptions: No Action buspirone 5 mg tablet 5 mg PO BID PRN (Reason: Anxiety) RF: 0 albuterol sulfate 90 mcg/actuation HFA aerosol inhaler 2 inh INHALATION Q6H RF: 0 ipratropium-albuterol 0.5 mg-3 mg(2.5 mg base)/3 mL Solution For Nebulization 3 ml inhalation Q6H.RESPIRATORY Qty: 90 RF: 3 ipratropium-albuterol 0.5 mg-3 mg(2.5 mg base)/3 mL Solution For Nebulization 3 ml inhalation Q4H PRN (Reason: Shortness Of Breath) Qty: 90 RF: 3 amoxicillin-pot clavulanate 875-125 mg Tablet 1 tab PO BID Qty: 12 RF: 0 prednisone 20 mg Tablet See Rx Instructions .ROUTE .COMPLEX Qty: 11 RF: 0 nicotine 21 mg/24 hr Patch 24 Hour 1 patch transdermal DAILY Qty: 30 RF: 0 lisinopril 2.5 mg tablet 2.5 mg PO DAILY Qty: 90 RF: 0 atorvastatin 40 mg tablet 40 mg PO DAILY Qty: 90 RF: 0 Coding Level of Care Code ED Credit Risk Associate for Carol Roy
[2021-04-09 07:30] VITALS: BP 117/81; PULSE 92; TEMP 36.8; O2SAT 94
[2021-04-09 08:34] VITALS: BP 133/79; PULSE 107; TEMP 36.8; O2SAT 97
--- NOTE | 2021-04-17 15:43 | DCPLANNER ---
operations project manager had message that patient received the monoclonal antibody infusion. operations project manager called to check on patient, to see how she was feeling. Patient stated that before the infusion, she had a headache, body aches, fever. Patient stated that after the infusion she did not have a headache, she did not have a fever and she felt better.
== END 2021-04-09 05:05 | disposition home or self-care (01) ==
LOC: ER 05:05
PROVIDERS: Visit Provider Nurse Practitioner Family
DX: U07.1 COVID-19 (principal)

== ENCOUNTER 2021-04-27 22:50 | Emergency (ER) | payer BC, SELFPAY ==
[2021-04-27 23:01] VITALS: BP 139/93; PULSE 95; RESP 16; TEMP 36.8; BMI 33.3
--- NOTE | 2021-04-27 23:08 | XRR_ITS ---
PROCEDURE INFORMATION: Exam: XR Chest Exam date and time: 04/27/2021 11:08 PM Age: 45 years old Clinical indication: Chest pressure; Patient HX: Chest pain; Additional info: Cp TECHNIQUE: Imaging protocol: XR of the chest. Views: 1 view. COMPARISON: CR XR chest 1V portable [id number] 02/22/2021 9:27 PM FINDINGS: Lungs: Unremarkable. No consolidation. Pleural spaces: Unremarkable. No pleural effusion. No pneumothorax. Heart/Mediastinum: Unremarkable. No cardiomegaly. Bones/joints: Unremarkable. XR/XR chest 1V portable [id number] IMPRESSION: Negative for infiltrate
--- NOTE | 2021-04-27 23:08 | ECG_ITS ---
[facility] Test Date: 2021-04-27 Pat Name: Chelsy Melendez Department: Room: Gender: Female Ethnographer: : 1975 Requested By: Aguila Mack Order Number: [id number] Dio MD: Mary Ortiz M.D. Measurements Intervals Hester Rate: 96 P: 57 AK: 168 QRS: -21 QRSD: 97 T: 48 QT: 358 QTc: 454 Interpretive Statements SINUS RHYTHM BORDERLINE LEFT AXIS DEVIATION [QRS AXIS < -20] Compared to ECG 02/22/2021 22:50:11 Sinus tachycardia no longer present Myocardial infarct finding no longer present Electronically Signed On 04-28-2021 16:29:58 CDT by Mary Ortiz M.D. [id number]
--- NOTE | 2021-04-27 23:18 | ED_ITS ---
HPI - Chest Pain General: Chief Complaint: Chest Pain Stated Complaint: Chest Pain\Stabbing between shoulder blades Time Seen by Provider: 04/27/21 23:07 History of Present Illness: HPI narrative: 45-year-old female with no prior history of heart disease. She has just gotten over Covid for the second time. She was diagnosed on 04/03. She was feeling actually pretty well until yesterday, when she had a couple of coughing fits, and got some sharp pain in he r chest that radiated into her upper back between her shoulder blades. She has had this pain on and off several times since then. She had a couple of times tonight. With continuance of pain on and off, cough, some shortness of breath, rattling in her chest, she decided to come to the emergency room. MD complaint: chest pain and chest heaviness Pertinent past history: other Onset (ago): hour(s) (30) Timing of current episode: episodic Prior episodes: Yes Onset: during rest Pain location: substernal Pain radiation: back Severity: moderate Quality: tightness and sharp Relieving factors: other (Coughing) Exacerbating factors: nothing Context: recent illness Associated symptoms: Reports dyspnea and leg edema (Transient); Deny abdominal pain, diaphoresis, fever(s), palpitations or vomiting Treatment prior to arrival: none Review of Systems Const: Denies: fever(s) or diaphoresis ENMT: Reports: throat pain and hoarseness Card: Reports: chest pain; Denies: palpitations Resp: Reports: dyspnea GI: Denies: abdominal pain or vomiting [facility] ED PFSH: Medical History Anxiety COPD (chronic obstructive pulmonary disease) Diabetes mellitus, type II Currently diet controlled 3 para 3 Hiatal hernia History of COVID-19 (~04/2020) with some non respiratory persistent symptoms Hx of supraventricular tachycardia Surgical History History of colonoscopy (~2016) History of esophagogastroduodenoscopy (EGD) (~2016) History of tubal ligation Family History Father Cancer lung Mother Cancer lung Social History Smoking and tobacco status: current every day smoker cigarettes Alcohol intake: current Alcohol intake frequency: holidays/special occasions only Household members: spouse Marital status: Female Reproductive History: Date of last menstrual period: 02/19/21 Physical Exam Const: COMMON NORMALS: no acute distress, patient oriented x3 and alert GENERAL APPEARANCE: not frail appearing HENMT: COMMON NORMALS: normocephalic HEAD & SCALP: normocephalic Eye: COMMON NORMALS: Equal, round and reactive pupils present, EOMs intact bilaterally and no scleral icterus PUPIL: Yes Equal, round and reactive pup ils present Chest: COMMONS NORMALS: normal inspection of the chest Resp: EFFORT & INSPECTION: Yes tachypneic, No respiratory distress and Yes uses accessory muscles AUSCULTATION: wheezes scattered wheezes Cardio: COMMON NORMALS: regular rate and regular rhythm RATE: regular rate RHYTHM: regular rhythm HEART SOUNDS: no murmurs GI: COMMON NORMALS: Normal to inspection, nondistended, normoactive bowel so unds present and Soft to palpation PALPATION: Yes Soft to palpation Neuro: COMMON NORMALS: patient oriented x3 SENSORIUM/ORIENTATION: Yes alert Course Vital Signs: Vital signs: Vital Signs Temperature 98.2 F 04/27/21 23:01 Pulse Rate 95 04/27/21 23:01 Respiratory Rate 16 04/27/21 23:01 Blood Pressure 139/93 04/27/21 23:01 MDM - Chest Pain MDM Narrative: Medical decision making narrative: 45-year-old female present ing with chest pain radiating into her upper back. Somewhat pleuritic in nature. She has had a cough as well. She has recently had Covid and recovered. Chest x-ray is negative. D-dimer is negative. Troponin is negative. EKG shows a normal sinus rhythm without acute ST changes. White blood cell count is 10. Glucose is in the 200s. We will treat with low-dose steroid, antibiotic coverage Lab Data: Labs: Lab Results 04/27/21 04/27/21 04/27/21 Range/Units 23:03 23:03 23:03 WBC 10.7 H (4.0-10.0) 10^3/ uL RBC 4.48 (4.1-5.3) 10^6/u L Hgb 13.4 (11.5-15.3) g/dL Hct 40.2 (37.0-47.0) % MCV 89.7 (81-99) fl MCH 29.9 (28.0-34.0) pg MCHC 33.3 (30.0-36.0) g/dL RDW 13.8 (12.1-15.1) % Plt Count 238 (130-400) 10^3/c mm MPV 11.5 H (7.4-10.4) fL Neut % (Auto) 65.9 % Lymph % (Auto) 23.8 % [place] % (Auto) 6.2 % Eos % (Auto) 3.1 % Baso % (Auto) 0.7 % Neut # (Auto) 7.07 (1.8-7.7) 10^3/u L Lymph # (Auto) 2.6 (0.8-4.8) 10^3/u L [place] # (Auto) 0.7 (0.2-0.9) 10^3/u L Eos # (Auto) 0.3 (0.0-0.8) 10^3/u L Baso # (Auto) 0.1 (0.0-0.1) 10^3/u L Nucleated RBC % (a uto) 0 % Nucleated RBCs # 0.0 /100WBC D-Dimer <= 0.27 (0-0.59) ug/mIFE U Sodium 134 L (136-145) mmol/L Potassium 4.0 (3.5-5.1) mmol/L Chloride 99 (98-107) mmol/L Carbon Dioxide 25 (22-29) mmol/L Anion Gap 14.0 (5-19) BUN 13 (6-20) mg/dL Creatinine 0.7 (0.5-0.9) mg/dL GFR Calculation 91.3 (90-130) mL/min Glucose 231 H (65-115) mg/dL Calculated Osmolal ity 285 (285-295) mOsm/k g Calcium 9.0 (8.5-10.5) mg/dL Total Bilirubin 0.3 (0.15-1.2) mg/dL AST 9 (0-32) U/L ALT 14 (0-33) U/L Alkaline Phosphata se 121 H (35-105) IU/L Creatine Kinase 45 (26-192) U/L Troponin T Baselin e (0-10) ng/L NT-Pro-B Natriuret Pep 5 (0-125) pg/mL Total Protein 6.2 L (6.6-8.7) g/dL Albumin 4.1 (3.5-5.2) g/dL Globulin 2.1 (1.3-4.6) g/dL 04/27/21 Range/Units 23:03 WBC (4.0-10.0) 10^3/ uL RBC (4.1-5.3) 10^6/u L Hgb (11.5-15.3) g/dL Hct (37.0-47.0) % MCV (81-99) fl MCH (28.0-34.0) pg MCHC (30.0-36.0) g/dL RDW (12.1-15.1) % Plt Count (130-400) 10^3/c mm MPV (7.4-10.4) fL Neut % (Auto) % Lymph % (Auto) % [place] % (Auto) % Eos % (Auto) % Baso % (Auto) % Neut # (Auto) (1.8-7.7) 10^3/u L Lymph # (Auto) (0.8-4.8) 10^3/u L [place] # (Auto) (0.2-0.9) 10^3/u L Eos # (Auto) (0.0-0.8) 10^3/u L Baso # (Auto) (0.0-0.1) 10^3/u L Nucleated RBC % (a uto) % Nucleated RBCs # /100WBC D-Dimer (0-0.59) ug/mIFE U Sodium (136-145) mmol/L Potassium (3.5-5.1) mmol/L Chloride (98-107) mmol/L Carbon Dioxide (22-29) mmol/L Anion Gap (5-19) BUN (6-20) mg/dL Creatinine (0.5-0.9) mg/dL GFR Calculation (90-130) mL/min Glucose (65-115) mg/dL Calculated Osmolal ity (285-295) mOsm/k g Calcium (8.5-10.5) mg/dL Total Bilirubin (0.15-1.2) mg/dL AST (0-32) U/L ALT (0-33) U/L Alkaline Phosphata se (35-105) IU/L Creatine Kinase (26-192) U/L Troponin T Baselin e 6 (0-10) ng/L NT-Pro-B Natriuret Pep (0-125) pg/mL Total Protein (6.6-8.7) g/dL Albumin (3.5-5.2) g/dL Globulin (1.3-4.6) g/dL Discharge Plan Discharge Patient Disposition: Home Clinical Impression: Acute bronchitis Qualifiers: Bronchitis organism: unspecified organism Qualified Code(s): J20.9 - Acute bronchitis, unspecified Chest pain Qualifiers: Chest pain type: unspecified Qualified Code(s): R07.9 - Chest pain, unspecified Condition: Stable Prescriptions: New doxycycline hyclate 100 mg capsule 100 mg PO BID 7 Days Qty: 14 RF: 0 prednisone 10 mg tablet See Rx Instructions .ROUTE .COMPLEX Qty: 11 RF: 0 No Action buspirone 5 mg tablet 5 mg PO BID PRN (Reason: Anxiety) RF: 0 albuterol sulfate 90 mcg/actuation HFA aerosol inhaler 2 inh INHALATION Q6H RF: 0 ipratropium-albuterol 0.5 mg-3 mg(2.5 mg base)/3 mL Solution For Nebulization 3 ml inhalation Q6H.RESPIRATORY Qty: 90 RF: 3 ipratropium-albuterol 0.5 mg-3 mg(2.5 mg base)/3 mL Solution For Nebulization 3 ml inhalation Q4H PRN (Reason: Shortness Of Breath) Qty: 90 RF: 3 amoxicillin-pot clavulanate 875-125 mg Tablet 1 tab PO BID Qty: 12 RF: 0 prednisone 20 mg Tablet See Rx Instructions .ROUTE .COMPLEX Qty: 11 RF: 0 nicotine 21 mg/24 hr Patch 24 Hour 1 patch transdermal DAILY Qty: 30 RF: 0 lisinopril 2.5 mg tablet 2.5 mg PO DAILY Qty: 90 RF: 0 atorvastatin 40 mg tablet 40 mg PO DAILY Qty: 90 RF: 0 Discharge Orders: Discharge ED (Routine); Ordered 04/28/21 Ordered By: Aguila Campbell Discharge Diet: Advance as tolerated Discharge Activity: Increase activity as tolerated Patient Instructions: Chest Pain (ED), Acute Bronchitis (ED) Activity Restrictions/Additional Instructions: Return for worsening pain despite treatment, worsening shortness of breath despite treatment, fever greater than 100, any other concerning symptoms. Coding Level of Care Code ED Salesperson [employer]ial Plots for Chg Fwd Exam Detailed
[2021-04-27 23:19] LABS: Basophils # 0.1 10^3/uL (0.0-0.1); Basophils % 0.7 %; Eosinophils # 0.3 10^3/uL (0.0-0.8); Eosinophils % 3.1 %; Hematocrit 40.2 % (37.0-47.0); Hemoglobin 13.4 g/dL (11.5-15.3); Lymphocytes # 2.6 10^3/uL (0.8-4.8); Lymphocytes % 23.8 %; Mean Corpuscular HGB Conc 33.3 g/dL (30.0-36.0); Mean Corpuscular Hemoglobin 29.9 pg (28.0-34.0); Mean Corpuscular Volume 89.7 fl (81-99); Mean Platelet Volume 11.5 fL (7.4-10.4); Monocytes # 0.7 10^3/uL (0.2-0.9); Monocytes % 6.2 %; Neutrophils # 7.07 10^3/uL (1.8-7.7); Neutrophils % 65.9 %; Nucleated Red Blood Cells % 0 %; Platelet Count 238 10^3/cmm (130-400); Red Blood Count 4.48 10^6/uL (4.1-5.3); Red Cell Distribution Width 13.8 % (12.1-15.1); White Blood Count 10.7 10^3/uL (4.0-10.0)
[2021-04-27 23:33] LABS: D Dimer <= 0.27 ug/mIFEU (0-0.59)
[2021-04-27 23:43] LABS: Alanine Aminotransferase 14 U/L (0-33); Albumin Level 4.1 g/dL (3.5-5.2); Alkaline Phosphatase 121 IU/L (35-105); Aspartate Amino Transferase 9 U/L (0-32); Blood Urea Nitrogen 13 mg/dL (6-20); Carbon Dioxide 25 mmol/L (22-29); Chloride 99 mmol/L (98-107); Creatine Phosphokinase 45 U/L (26-192); Globulin 2.1 g/dL (1.3-4.6); Glomerular Filtration Rate 91.3 mL/min (90-130); Glucose 231 mg/dL (65-115); NT Pro B Type Natriuretic Pept 5 pg/mL (0-125); Osmolality Calculated 285 mOsm/kg (285-295); Sodium 134 mmol/L (136-145); Total Bilirubin 0.3 mg/dL (0.15-1.2); Total Protein 6.2 g/dL (6.6-8.7)
[2021-04-27 23:44] LABS: Troponin(5th) Baseline 6 ng/L (0-10)
[2021-04-28 00:21] VITALS: BP 127/78; PULSE 98; RESP 18; O2SAT 96
[2021-04-28] MEDS: predniSONE 20 mg Tablet PO (00:21)
[2021-04-28] MEDS: doxycycline 100 mg Tablet PO (00:21)
== END 2021-04-28 00:26 | disposition home or self-care (01) ==
PROVIDERS: Emergency Provider Emergency Medicine
DX: J20.9 Acute bronchitis, unspecified (principal); R07.9 Chest pain, unspecified; J44.9 Chronic obstructive pulmonary disease, unspecified; E11.9 Type 2 diabetes mellitus without complications; F17.210 Nicotine dependence, cigarettes, uncomplicated
CPT/HCPCS: 71045; 80053; 82550; 83880; 84484; 85025; 85378; 93005; 99283; J7512

== ENCOUNTER 2021-07-29 18:18 | Emergency (ER) | payer BC, SELFPAY ==
[2021-07-29 18:25] VITALS: BP 154/80; PULSE 111; RESP 24; TEMP 36.8; O2SAT 96; BMI 34.5
--- NOTE | 2021-07-29 18:50 | W.ED.GENADLT ---
HPI - General Adult General: Chief complaint: Weakness Stated complaint: HYPERGLYCEMIA Time Seen by Provider: 07/29/21 18:19 History of Present Illness: HPI narrative: Patient is a 46-year-old female with history of type 2 diabetes on glipizide and regular insulin presenting to the emergency room for concerns of hyperglycemia. Patient recently took on his own this morning for bronchitis-like symptoms. Since then, patient has had numbness around her mouth, left cheek paresthesia, and nasuea. Patient went to see her primary care provider was found to have a glucose in the 500s. Prior history of DKA. Patient was told to come to the emergency room for further evaluation. Patient says that her glucose usually runs in the 200s when she takes prednisone, it usually bumps up to 300s. Patient denies any history of DKA. Denies any fever/chills, chest pain, shortness breath, palpitation, diarrhea, melena or hematochezia, polyuria, dysuria. Paitent levemer 40 units earlier this morning at 10am. Glucose per EMS was 560 initially that improved to 480s on reepat. Onset: unknown Duration:ongoing Location:home Severity:moderate Review of Systems Narrative: Constitutional: No fever, no chills. HEENT: No vision changes CV: No chest pain, no palpitations PULM: no cough, no dyspnea. GI: No abdominal pain, +N/-V/-D. : No dysuria MSKEL: No muscle pain, +L inner thigh pain SKIN: No new rashes, no lesions. NEURO: No headache, no focal weakness. +L lower facial paresthesia and perioral numbness HEME: No visible bruises PSYCH: Normal mood PFSH ED PFSH: Medical History Anxiety COPD (chronic obstructive pulmonary disease) Diabetes mellitus, type II Currently diet controlled 3 para 3 Hiatal hernia History of COVID-19 (~04/2020) with some non respiratory persistent symptoms Hx of supraventricular tachycardia Surgical History History of colonoscopy (~2016) History of esophagogastroduodenoscopy (EGD) (~2016) History of tubal ligation Family History Father Cancer lung Mother Cancer lung Social History Smoking and tobacco status: current every day smoker cigarettes Alcohol intake: current Alcohol intake frequency: holidays/special occasions only Household members: spouse Marital status: Female Reproductive History: Date of last menstrual period: 02/19/21 Physical Exam Narrative: EXAM NARRATIVE: Head: Atraumatic Eyes: PERRL, conjunctiva without injection ENT: Mucous membrane moist NECK: Supple, ROM intact LUNGS: LCTAB, no crackles/rhonchi CV: Sinus tachycardia ABDOMEN: Soft, nontender in all quadrants EXTREMITY: Normal ROM SKIN: No rash or erythema NEURO: Mental status? Awake, alert, and oriented to self, year, month, location, and situation.? Following simple axial and appendicular commands.? Has appropriate fund of knowledge, comprehension, and insight.? Able to recall and understands pertinent aspects of medical history and current treatment status.? ? Language? Speech is fluent without word-finding difficulties.? Intact naming, expression, transformer maker, and repetition.? ? Cranial nerves? 2,3,4,6: PERRL, EOMI with no nystagmus. 5: Intact sensation to light touch, symmetric? 7: Smile symmetrical, no facial droop.? 8: Hearing grossly intact.? 9,10: Normal palate movement.? 11: Normal strength in trapezius bilaterally 12: Tongue protrudes midline.? ? Motor examination? Normal bulk & tone. Strength as follows (R/L): Delts (5/5), Biceps (5/5), Triceps (5/5), Wrist ext (5/5), hip flexors (5/5), plantarflexors (5/5), dorsiflexors (5/5). ? Sensation? Light Touch: Grossly intact and equal in upper and lower extremities bilaterally? Romberg: Negative.? Distal joint position sense intact ? Coordination? Ujwihh-uv-qlvi-finger movements intact without dysmetria or past-pointing.? Rapid fingertaps: preserved amplitude without decriment.? No tremor, myoclonus or truncal ataxia.? ? Gait/stance? Steady, normal narrow base gait with appropriate arm swing and turning.? Tandem gait without hesitation or loss of balance. PSYCH: Normal mood and affect Course Vital Signs: Vital signs: Vital Signs Temperature 97.8 F 07/29/21 22:09 Pulse Rate 98 07/29/21 22:09 Respiratory Rate 16 07/29/21 22:09 Blood Pressure 144/88 07/29/21 22:09 Pulse Oximetry 96 07/29/21 22:09 MDM - General Adult MDM Narrative: Medical decision making narrative: 46-year-old female with a history of type 2 diabetes presenting to the emergency room with concerns of hyperglycemia, perioral numbness, left lower face paresthesia. Patient's neuro exam is intact today. Patient is noted to be mildly tachycardic to the low 100s. Will workup for DKA vs hyperglycemia Intervention: IVF and observation On reassessment at 8:58pm, patient's glucose improve today from 465 on arrival to 291. There is no signs of DKA at this time. I have no concern for underlying sepsis or acute emergent metabolic phenomenon. Patient's perioral numbness as well as left cheek paresthesia improved after hydration. At the present time, given reassuring neuro exam on arrival, I have no suspicion that patient is experiencing a stroke or TIA. However, I have discussed finding with patient given her risk factors of diabetes and hypertension, that if she has any symptoms of weakness that she needs to come back to the emergency room. Given hx of diabetes uncontrolled glucose, patient, she may be at risk for having diabetic neuropathy. I have given patient for close follow-up with a neurologist should she need it for further evaluation of parethesia. Pain the patient's left inner thigh, US negative for DVT. Suspect that patient is tachycardiac is NOT related to pulmonary embolism. The tachycardia likely related to dehydration and hyperglycemia. Patient also reported baseline tachycardia to to low 100s. On reassessment, HR improved to 90s. I have given patient follow up with our patient case manager to be seen by our outpatient Neurology Dr. Chandra. Patient aware of a call from our patient case manager to schedule for appointment(s) and verbalizes understanding of the importance of following up. Lab Data: Labs: Lab Results 07/29/21 07/29/21 07/29/21 19:30 19:30 19:30 WBC 13.4 10^3/uL H 10 ^3/uL (4.0-10.0) RBC 4.81 10^6/uL 10^6 /uL (4.1-5.3) Hgb 14.3 g/dL g/dL (11.5-15.3) Hct 42.9 % % (37.0-47.0) MCV 89.2 fl fl (81-99) MCH 29.7 pg pg (28.0-34.0) MCHC 33.3 g/dL g/dL (30.0-36.0) RDW 12.9 % % (12.1-15.1) Plt Count 262 10^3/cmm 10^3 /cmm (130-400) MPV 11.5 fL H fL (7.4-10.4) Neut % (Auto) 87.8 % % Lymph % (Auto) 9.9 % % [place] % (Auto) 0.9 % % Eos % (Auto) 0.1 % % Baso % (Auto) 0.3 % % Neut # (Auto) 11.78 10^3/uL H 1 0^3/uL (1.8-7.7) Lymph # (Auto) 1.3 10^3/uL 10^3/ uL (0.8-4.8) [place] # (Auto) 0.1 10^3/uL L 10^ 3/uL (0.2-0.9) Eos # (Auto) 0.0 10^3/uL 10^3/ uL (0.0-0.8) Baso # (Auto) 0.0 10^3/uL 10^3/ uL (0.0-0.1) Nucleated RBC % (a uto) 0 % % Nucleated RBCs # 0.0 /100WBC /100W BC Sodium 136 mmol/L mmol/L (136-145) Potassium 4.2 mmol/L mmol/L (3.5-5.1) Chloride 101 mmol/L mmol/L (98-107) Carbon Dioxide 22 mmol/L mmol/L (22-29) Anion Gap 17.2 (5-19) BUN 10 mg/dL mg/dL (6-20) Creatinine 0.6 mg/dL mg/dL (0.5-0.9) GFR Calculation 108.6 mL/min mL/m in (90-130) Glucose 344 mg/dL H mg/dL (65-115) POC Glucose Calculated Osmolal ity 295 mOsm/kg mOsm/ kg (285-295) Calcium 8.5 mg/dL mg/dL (8.5-10.5) Total Bilirubin 0.2 mg/dL mg/dL (0.15-1.2) AST 7 U/L U/L (0-32) ALT 15 U/L U/L (0-33) Alkaline Phosphata se 136 IU/L H IU/L (35-105) Total Protein 6.6 g/dL g/dL (6.6-8.7) Albumin 3.8 g/dL g/dL (3.5-5.2) Globulin 2.8 g/dL g/dL (1.3-4.6) Lipase 16 U/L U/L (13-60) Urine Color Urine Appearance Urine pH Ur Specific Gravit y Urine Protein Urine Glucose (UA) Urine Ketones Urine Blood Urine Nitrate Urine Bilirubin Urine Urobilinogen Ur Leukocyte Sally ase Serum Ketones Negative (Negative) 07/29/21 07/29/21 19:45 21:55 WBC RBC Hgb Hct MCV MCH MCHC RDW Plt Count MPV Neut % (Auto) Lymph % (Auto) [place] % (Auto) Eos % (Auto) Baso % (Auto) Neut # (Auto) Lymph # (Auto) [place] # (Auto) Eos # (Auto) Baso # (Auto) Nucleated RBC % (a uto) Nucleated RBCs # Sodium Potassium Chloride Carbon Dioxide Anion Gap BUN Creatinine GFR Calculation Glucose POC Glucose 291 mg/dL H mg/dL (70-110) Calculated Osmolal ity Calcium Total Bilirubin AST ALT Alkaline Phosphata se Total Protein Albumin Globulin Lipase Urine Color Yellow (Yellow) Urine Appearance Clear (CLEAR) Urine pH 6 (5-7) Ur Specific Gravit y 1.005 (1.005-1.030) Urine Protein Neg (Negative) Urine Glucose (UA) 4+ H (Normal) Urine Ketones 1+ H (Negative) Urine Blood Neg (Negative) Urine Nitrate Negative (Negative) Urine Bilirubin Neg (Negative) Urine Urobilinogen Norm mg/dL mg/dL (Negative) Ur Leukocyte Sally ase Negative (Negative) Serum Ketones Imaging Data^: Other Imaging: Radiologist's impression: [address] [id number] ReportSigned Patient: Isaiah Melendez #: [id number]: 1975Acct#:[id number]/Sex: 46 / FADM Date: 07/29/21Loc: ERRoom/Bed:Attending Dr: Ordering Provider/Ordering MD: Andrea Zepeda MD Date of Service: 07/29/21 Procedure(s): [place] [id number] Accession Number(s): [id number] Report Number: [id number] PROCEDURE INFORMATION: Exam: US Duplex Left Lower Extremity Veins, Limited Exam date and time: 07/29/2021 7:51 PM Age: 46 years old Clinical indication: Pain; Leg, upper; Left; Additional info: Eval dvt TECHNIQUE: Imaging protocol: Real-time Duplex ultrasound of the Left Lower Extremity with 2-D lund scale, color Doppler flow and spectral waveform analysis with image documentation. Limited exam focused on the left lower extremity veins. COMPARISON: US Renal Kidney Structu* [id number] 04/23/2017 12:29 PM FINDINGS: Left deep veins: Unremarkable. The common femoral, femoral, proximal profunda femoral and popliteal veins are patent without thrombus. Normal Doppler waveforms. Normal compressibility and/or augmentation response. Left superficial veins: Unremarkable. Saphenofemoral junction is patent without thrombus. Soft tissues: Unremarkable. US/[place] [address] IMPRESSION: No evidence of deep vein thrombosis. Radiation Dose CTDIVOL = (mGy): DLP = (mGy-cm) Dictated By:Perico José MDSigned By:Perico José MDSigned Date/Time:07/29/212047DD/ 50 Discharge Plan Discharge Patient Disposition: Home Clinical Impression: Hyperglycemia Condition: Stable Prescriptions: No Action prednisone 10 mg tablet See Rx Instructions .ROUTE .COMPLEX Qty: 11 RF: 0 buspirone 5 mg tablet 5 mg PO BID PRN (Reason: Anxiety) RF: 0 albuterol sulfate 90 mcg/actuation HFA aerosol inhaler 2 inh INHALATION Q6H RF: 0 ipratropium-albuterol 0.5 mg-3 mg(2.5 mg base)/3 mL Solution For Nebulization 3 ml inhalation Q6H.RESPIRATORY Qty: 90 RF: 3 ipratropium-albuterol 0.5 mg-3 mg(2.5 mg base)/3 mL Solution For Nebulization 3 ml inhalation Q4H PRN (Reason: Shortness Of Breath) Qty: 90 RF: 3 amoxicillin-pot clavulanate 875-125 mg Tablet 1 tab PO BID Qty: 12 RF: 0 prednisone 20 mg Tablet See Rx Instructions .ROUTE .COMPLEX Qty: 11 RF: 0 nicotine 21 mg/24 hr Patch 24 Hour 1 patch transdermal DAILY Qty: 30 RF: 0 lisinopril 2.5 mg tablet 2.5 mg PO DAILY Qty: 90 RF: 0 atorvastatin 40 mg tablet 40 mg PO DAILY Qty: 90 RF: 0 Discharge Orders: Discharge ED (Routine); Ordered 07/29/21 Ordered By: Andrea Zepeda Discharge Diet: Advance as tolerated Discharge Activity: Resume usual activity Patient Instructions: Hyperglycemia Activity Restrictions/Additional Instructions: Please follow-up with your primary care provider for evaluation of your hyperglycemia for adjustment of your insulin application. Coding Level of Care Code ED Inspector Air Carrier for Carol Roy
[2021-07-29] MEDS: sodium chloride 0.9% 1,000 ML 999 ML IV ×2 (19:38→21:11)
--- NOTE | 2021-07-29 19:51 | USR_ITS ---
PROCEDURE INFORMATION: Exam: US Duplex Left Lower Extremity Veins, Limited Exam date and time: 07/29/2021 7:51 PM Age: 46 years old Clinical indication: Pain; Leg, upper; Left; Additional info: Eval dvt TECHNIQUE: Imaging protocol: Real-time Duplex ultrasound of the Left Lower Extremity with 2-D lund scale, color Doppler flow and spectral waveform analysis with image documentation. Limited exam focused on the left lower extremity veins. COMPARISON: US Renal Kidney Structu* [id number] 04/23/2017 12:29 PM FINDINGS: Left deep veins: Unremarkable. The common femoral, femoral, proximal profunda femoral and popliteal veins are patent without thrombus. Normal Doppler waveforms. Normal compressibility and/or augmentation response. Left superficial veins: Unremarkable. Saphenofemoral junction is patent without thrombus. Soft tissues: Unremarkable. US/[place] [id number] IMPRESSION: No evidence of deep vein thrombosis. Radiation Dose CTDIVOL = (mGy): DLP = (mGy-cm)
[2021-07-29 19:52] LABS: Basophils % 0.3 %; Eosinophils % 0.1 %; Hematocrit 42.9 % (37.0-47.0); Hemoglobin 14.3 g/dL (11.5-15.3); Lymphocytes # 1.3 10^3/uL (0.8-4.8); Lymphocytes % 9.9 %; Mean Corpuscular HGB Conc 33.3 g/dL (30.0-36.0); Mean Corpuscular Hemoglobin 29.7 pg (28.0-34.0); Mean Corpuscular Volume 89.2 fl (81-99); Mean Platelet Volume 11.5 fL (7.4-10.4); Monocytes # 0.1 10^3/uL (0.2-0.9); Monocytes % 0.9 %; Neutrophils # 11.78 10^3/uL (1.8-7.7); Neutrophils % 87.8 %; Nucleated Red Blood Cells % 0 %; Platelet Count 262 10^3/cmm (130-400); Red Blood Count 4.81 10^6/uL (4.1-5.3); Red Cell Distribution Width 12.9 % (12.1-15.1); White Blood Count 13.4 10^3/uL (4.0-10.0)
[2021-07-29 19:57] LABS: Add Urine Microscopic? NO; Charge for UA Resulting for Rev
[2021-07-29 20:07] LABS: Bilirubin Urine Neg (Negative); Blood Urine Neg (Negative); Glucose Urine UA 4+ (Normal); Ketones Urine 1+ (Negative); Leukocyte Esterase Urine Negative (Negative); Nitrate Urine Negative (Negative); Protein Urine Neg (Negative); Specific Gravity, Urine 1.005 (1.005-1.030); Urine Appearance Clear (CLEAR); Urine Color Yellow (Yellow); Urobilinogen Urine Norm (Negative); pH Urine 6 (5-7)
[2021-07-29] MEDS: acetaminophen 500 mg Tablet 1000 MG PO (20:08)
[2021-07-29 20:09] LABS: Ketone (Acetest) Serum Negative (Negative)
[2021-07-29 20:10] LABS: Alanine Aminotransferase 15 U/L (0-33); Albumin Level 3.8 g/dL (3.5-5.2); Alkaline Phosphatase 136 IU/L (35-105); Anion Gap 17.2 (5-19); Aspartate Amino Transferase 7 U/L (0-32); Blood Urea Nitrogen 10 mg/dL (6-20); Calcium 8.5 mg/dL (8.5-10.5); Carbon Dioxide 22 mmol/L (22-29); Chloride 101 mmol/L (98-107); Globulin 2.8 g/dL (1.3-4.6); Glomerular Filtration Rate 108.6 mL/min (90-130); Glucose 344 mg/dL (65-115); Lipase 16 U/L (13-60); Osmolality Calculated 295 mOsm/kg (285-295); Potassium 4.2 mmol/L (3.5-5.1); Sodium 136 mmol/L (136-145); Total Bilirubin 0.2 mg/dL (0.15-1.2); Total Protein 6.6 g/dL (6.6-8.7)
[2021-07-29 22:00] LABS: Glucose Point of Care 291 mg/dL (70-110)
[2021-07-29 22:09] VITALS: BP 144/88; PULSE 98; RESP 16; TEMP 36.6; O2SAT 96
[2021-07-29 22:31] VITALS: BP 141/78; PULSE 78; RESP 18; O2SAT 98
--- NOTE | 2021-07-30 11:51 | DCPLANNER ---
classified advertising manager had message to schedule a follow up appointment for patient with neurology. classified advertising manager emailed patients information to the neurology clinic. Patients information will be printed and reviewed. Clinic will call patient with appointment information.
--- NOTE | 2021-07-31 14:11 | DCPLANNER ---
Addendum entered by Willa Elmore 10/05/21 11:22: Patient had a follow up appointment scheduled with Dr. Chandra - patient did attend appointment. Original Note: Patient has a follow up appointment scheduled for Thursday, August 05, 2021 at 12:00 with . Clinic will call patient with appointment information.
== END 2021-07-29 22:22 | disposition home or self-care (01) ==
PROVIDERS: Emergency Provider Emergency Medicine
DX: E11.65 Type 2 diabetes mellitus with hyperglycemia (principal); J44.9 Chronic obstructive pulmonary disease, unspecified; F17.210 Nicotine dependence, cigarettes, uncomplicated
CPT/HCPCS: 36416; 80053; 81003; 82009; 82803; 82962; 83690; 85025; 93971; 96360; 96361; 99284; J7030

== ENCOUNTER → 2021-08-05 12:03 | Outpatient (BNVA) | payer BC, SELFPAY | PROVIDERS: Referring Provider Emergency Medicine; Visit Provider Specialist | DX: E11.40 Type 2 diabetes mellitus with diabetic neuropathy, unspecified (principal); E11.65 Type 2 diabetes mellitus with hyperglycemia; R51.9 Headache, unspecified; J44.9 Chronic obstructive pulmonary disease, unspecified; R41.82 Altered mental status, unspecified; Z86.16 Personal history of COVID-19; F17.200 Nicotine dependence, unspecified, uncomplicated | CPT/HCPCS: 99205 ==

== ENCOUNTER → 2021-08-20 10:17 | Outpatient (BNVA) | payer BC, SELFPAY | PROVIDERS: Visit Provider Internal Medicine | DX: E11.40 Type 2 diabetes mellitus with diabetic neuropathy, unspecified (principal); F17.210 Nicotine dependence, cigarettes, uncomplicated; Z86.16 Personal history of COVID-19; Z79.4 Long term (current) use of insulin | CPT/HCPCS: 99204 ==

== ENCOUNTER 2021-09-09 15:12 | Outpatient (CLI) | payer BC, SELFPAY ==
--- NOTE | 2021-09-09 15:15 | MR_ITS ---
WS: [id number] MRI HEAD WITHOUT CONTRAST TECHNIQUE: Sagittal T1, T2 axial, T2 axial FLAIR, axial and coronal T1 images, axial susceptibility w eighted imaging, axial diffusion weighted images, and coronal T2 images were obtained. CLINICAL INFORMATION: G43.709 - Chronic migraine without aura, not intractable,... COMPARISON: None. FINDINGS: No evidence of restricted diffusion to suggest acute ischemia. Ventricular system and basal cisterns are patent. Mild periventricular and subcortical white matter changes nonspecific in a patient this a ge but can be seen with hypertension, diabetes, and migraine headaches. No hemosiderin on the suscept ibility weighted images. Normal posterior fossa. Normal vascular flow voids at the skull base. No ext ra-axial fluid collections. No evidence of mass or mass effect. Paranasal sinuses and mastoid air cells are well aerated. Normal optic chiasm and pituitary infundibulum. Temporal lobes and hippocampal formations are normal in appearance. No significant parenchymal volume loss. MR/MR head wo con* [id number] IMPRESSION: 1. No evidence of restricted diffusion to suggest acute ischemia. 2. Mild supratentorial subcortical and periventricular white matter changes ma inly in the frontal lobes nonspecific but can be seen with hypertension, diabet es, and migraine headaches. 3. No significant parenchymal volume loss. 4. No hemosiderin on the susceptibly weighted images. 5. No other significant findings.
== END 2021-09-09 15:13 | disposition home or self-care (01) ==
LOC: RADSHAW 15:19
PROVIDERS: Visit Provider Specialist
DX: G43.709 Chronic migraine without aura, not intractable, without status migrainosus (principal)
CPT/HCPCS: 70551

== ENCOUNTER 2022-10-07 16:01 | Emergency (ER) | payer BC, SELFPAY ==
[2022-10-07 16:08] VITALS: BP 148/83; PULSE 107; RESP 18; TEMP 36.5; O2SAT 98
--- NOTE | 2022-10-07 16:13 | XRR_ITS ---
PROCEDURE INFORMATION: Exam: XR Chest Exam date and time: 10/07/2022 4:23 PM Age: 47 years old Clinical indication: Pain; Angina pectoris; Additional info: Cp TECHNIQUE: Imaging protocol: Radiologic exam of the chest. Views: 1 view. COMPARISON: CR XR chest 1V portable [id number] 04/27/2021 11:17 PM FINDINGS: Lungs: Unremarkable. No consolidation. Pleural spaces: Unremarkable. No pleural effusion. No pneumothorax. Heart/Mediastinum: Unremarkable. No cardiomegaly. Bones/joints: Unremarkable. XR/XR chest 1V portable [id number] IMPRESSION: No acute findings.
--- NOTE | 2022-10-07 16:16 | ECG_ITS ---
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 Measurements Intervals [place] Rate: 108 P: 66 SC: 140 QRS: 104 QRSD: 95 T: 53 QT: 328 QTc: 441 Interpretive Statements SINUS TACHYCARDIA RIGHT AXIS DEVIATION [QRS AXIS > 100] Compared to ECG 04/27/2021 23:04:51 Right-axis deviation now present Sinus rhythm no longer present Electronically Signed On 10-08-2022 9:27:53 STUDIO OPERATIONS MANAGER by Honorio Garcia M.D. [email or web address]
[2022-10-07 16:53] LABS: Basophils # 0.1 10^3/uL (0.0-0.1); Basophils % 0.7 %; Eosinophils # 0.2 10^3/uL (0.0-0.8); Eosinophils % 2.1 %; Hematocrit 38.9 % (37.0-47.0); Hemoglobin 12.6 g/dL (11.5-15.3); Lymphocytes # 2.6 10^3/uL (0.8-4.8); Lymphocytes % 24.3 %; Mean Corpuscular HGB Conc 32.4 g/dL (30.0-36.0); Mean Corpuscular Hemoglobin 28.4 pg (28.0-34.0); Mean Corpuscular Volume 87.6 fl (81-99); Monocytes # 0.6 10^3/uL (0.2-0.9); Monocytes % 5.7 %; Neutrophils # 7.02 10^3/uL (1.8-7.7); Neutrophils % 66.9 %; Nucleated Red Blood Cells % 0 %; Platelet Count 271 10^3/cmm (130-400); Red Blood Count 4.44 10^6/uL (4.1-5.3); Red Cell Distribution Width 14.7 % (12.1-15.1); White Blood Count 10.5 10^3/uL (4.0-10.0)
--- NOTE | 2022-10-07 17:04 | ED_ITS ---
Documented by User: Nitin Brown DO 10/09/22 05:57 HPI - Chest Pain General: Chief Complaint: Chest Pain Stated Complaint: Chest Pains, Numbness in Arms Time Seen by Provider: 10/07/22 16:49 Source: patient Mode of arrival: ambulatory Limitations: no limitations History of Present Illness: 47-year-old female presents emergency room complaining of chest pain. She intermittently had chest pain for the last 2 weeks. She is reports having periods of time where he will feel like a squeezing sensation that radiates into her arms she not really noticed anything that precipitates it. It lasts a few minutes and then resolves today she had pain that seem to be brought on by exertion and has been persisting throughout the day. She has no known history of coronary disease she is a former heavy smoker has cut back significantly but does have COPD. Additionally she is a type II diabetic. No associated diaphoresis. Some the pain does radiate into her back no nausea or vomiting. No fever sweats chills she denies any abdominal discomfort. she had a stress test approximately 2 years ago that was reported to her as normal and she has never had any further evaluation or testing. MD complaint: chest pain Onset (ago): hour(s) Timing of current episode: episodic Onset: during rest and during exertion Pain location: left chest Pain radiation: right arm and left arm Severity: moderate Quality: aching and heaviness Relieving factors: nothing Exacerbating factors: exertion Associated symptoms: Deny abdominal pain, diaphoresis, dyspnea, fever(s), leg edema, nausea, palpitations, sense of impending doom, syncope or vomiting Treatment prior to arrival: none Review of Systems Const: Denies: fever(s) or diaphoresis ENMT: Denies: throat pain, ear or mastoid pain, nasal discharge or nasal congestion Card: Denies: palpitations or syncope Resp: Denies: dyspnea GI: Denies: abdominal pain, nausea or vomiting : Denies: flank pain, difficulty voiding, dysuria, urinary frequency or urinary urgency Skin/Breast: Denies: rash or pruritus PFS ED PFSH: Medical History Anxiety COPD (chronic obstructive pulmonary disease) Diabetes mellitus, type II Currently diet controlled 3 para 3 Hiatal hernia History of COVID-19 (~04/2020) with some non respiratory persistent symptoms Hx of supraventricular tachycardia Surgical History History of colonoscopy (~2016) History of esophagogastroduodenoscopy (EGD) (~2016) History of tubal ligation Family History Father Cancer lung Mother Cancer lung Social History Smoking and tobacco status: current every day smoker cigarettes Alcohol intake: current Alcohol intake frequency: holidays/special occasions only Household members: spouse Marital status: Female Reproductive History: Date of last menstrual period: 02/19/21 Physical Exam Const: GENERAL APPEARANCE: cooperative and comfortable ORIENTATION/CONSCIOUSNESS: Yes awake, Yes oriented to person, Yes oriented to place and Yes oriented to time HENMT: COMMON NORMALS: normocephalic, atraumatic and hearing grossly normal bilaterally HEAD & SCALP: normocephalic and atraumatic Resp: COMMON NORMALS: normal respiratory effort, No retractions, No use of accessory muscles and clear to auscultation bilaterally AUSCULTATION: clear to auscultation bilaterally Cardio: COMMON NORMALS: regular rate, regular rhythm and No murmurs present (Cardio) RATE: regular rate RHYTHM: regular rhythm GI: COMMON NORMALS: Soft to palpation and No hepatosplenomegaly present AUSCULTATION: Yes normoactive bowel sounds PALPATION: Yes Soft to palpation, No Tenderness to palpation present (GI), No Guarding due to palpation present (GI) and Yes No hepatosplenomegaly present Extremity: COMMON NORMALS: normal to inspection, capillary refill normal, no clubbing, cyanosis or edema, no calf tenderness and no pedal edema Neuro: SENSORIUM/ORIENTATION: Yes oriented to person, Yes oriented to place and Yes oriented to time Skin: COMMON NORMALS: no rashes or lesions noted GENERAL SKIN EXAM: no rashes or lesions noted Course Vital Signs: Vital signs: Vital Signs Temperature 97.7 F 10/07/22 16:08 Pulse Rate 98 10/07/22 19:12 Respiratory Rate 16 10/07/22 19:12 Blood Pressure 144/102 10/07/22 19:12 Pulse Oximetry 96 10/07/22 19:12 Oxygen Delivery Me thod 10/07/22 18:00 MDM - Chest Pain Medical Decision Making Care signed out to Dr. Haddad at change of shift. See final notes for diagnosis and disposition. Lab Data 10/07/22 16:41 10/07/22 16:41 Radiology Impressions Chest X-Ray 10/07/22 16:13 IMPRESSION: No acute findings. Laboratory Results WBC 10.5 10^3/uL (4.0-10.0) H 10/07/22 16:41 RBC 4.44 10^6/uL (4.1-5.3) 10/07/22 16:41 Hgb 12.6 g/dL (11.5-15.3) 10/07/22 16:41 Hct 38.9 % (37.0-47.0) 10/07/22 16:41 MCV 87.6 fl (81-99) 10/07/22 16:41 MCH 28.4 pg (28.0-34.0) 10/07/22 16:41 MCHC 32.4 g/dL (30.0-36.0) 10/07/22 16:41 RDW 14.7 % (12.1-15.1) 10/07/22 16:41 Plt Count 271 10^3/cmm (130-400) 10/07/22 16:41 MPV 11.0 fL (7.4-10.4) H 10/07/22 16:41 Neut % (Auto) 66.9 % 10/07/22 16:41 Lymph % (Auto) 24.3 % 10/07/22 16:41 [place] % (Auto) 5.7 % 10/07/22 16:41 Eos % (Auto) 2.1 % 10/07/22 16:41 Baso % (Auto) 0.7 % 10/07/22 16:41 Neut # (Auto) 7.02 10^3/uL (1.8-7.7) 10/07/22 16:41 Lymph # (Auto) 2.6 10^3/uL (0.8-4.8) 10/07/22 16:41 [place] # (Auto) 0.6 10^3/uL (0.2-0.9) 10/07/22 16:41 Eos # (Auto) 0.2 10^3/uL (0.0-0.8) 10/07/22 16:41 Baso # (Auto) 0.1 10^3/uL (0.0-0.1) 10/07/22 16:41 Nucleated RBC % (auto) 0 % 10/07/22 16:41 Nucleated RBCs # 0.0 /100WBC 10/07/22 16:41 Sodium 136 mmol/L (136-145) 10/07/22 16:41 Potassium 4.2 mmol/L (3.5-5.1) 10/07/22 16:41 Chloride 99 mmol/L (98-107) 10/07/22 16:41 Carbon Dioxide 26 mmol/L (22-29) 10/07/22 16:41 Anion Gap 15.2 (5-19) 10/07/22 16:41 BUN 11 mg/dL (6-20) 10/07/22 16:41 Creatinine 0.7 mg/dL (0.5-0.9) 10/07/22 16:41 GFR Calculation 90.5 mL/min (90-130) 10/07/22 16:41 Glucose 379 mg/dL (65-115) H 10/07/22 16:41 Calculated Osmolality 297 mOsm/kg (285-295) H 10/07/22 16:41 Calcium 9.6 mg/dL (8.5-10.5) 10/07/22 16:41 Total Bilirubin 0.2 mg/dL (0.15-1.2) 10/07/22 16:41 AST 9 U/L (0-32) 10/07/22 16:41 ALT 17 U/L (0-33) 10/07/22 16:41 Alkaline Phosphatase 142 U/L (35-105) H 10/07/22 16:41 Troponin T Baseline 11 ng/L (0-10) H 10/07/22 16:41 Troponin T 120 Minute 12.92 ng/L (0-10) H 10/07/22 18:27 Delta Troponin T 1.92 ABS# (0-10) 10/07/22 18:27 Total Protein 6.8 g/dL (6.6-8.7) 10/07/22 16:41 Albumin 4.0 g/dL (3.5-5.2) 10/07/22 16:41 Globulin 2.8 g/dL (1.3-4.6) 10/07/22 16:41 HCG, Qual Negative (Negative) 10/07/22 16:41 Discharge Plan Discharge Patient Disposition: Home Clinical Impression: Chest pain Condition: Stable Prescriptions: No Action glipizide 10 mg tablet 10 mg PO BID Levemir FlexTouch U-100 Insuln 100 unit/mL (3 mL) insulin pen 40 unit SUBCUT DAILY insulin aspart U-100 [Novolog FlexPen U-100 Insulin] 100 unit/mL (3 mL) insulin pen 5 unit SUBCUT TID Rx Instructions: Just a SS Victoza 2-Beni 0.6 mg/0.1 mL (18 mg/3 mL) pen injector 1.8 mg SUBCUT DAILY Qty: 27 3RF Rx Instructions: 0.6mg [id number], 1.2mg [id number] then 1.8 and continue venlafaxine [Effexor XR] 75 mg capsule,extended release 24hr 75 mg PO DAILY Qty: 7 0RF Rx Instructions: take 75mg for 7 days then increase to 150mg venlafaxine [Effexor XR] 150 mg capsule,extended release 24hr 150 mg PO DAILY Qty: 30 3RF buspirone 5 mg tablet 5 mg PO BID PRN (Reason: Anxiety) albuterol sulfate 90 mcg/actuation HFA aerosol inhaler 2 inh INHALATION Q6H ipratropium-albuterol 0.5 mg-3 mg(2.5 mg base)/3 mL Solution For Nebulization 3 ml inhalation Q6H.RESPIRATORY Qty: 90 3RF ipratropium-albuterol 0.5 mg-3 mg(2.5 mg base)/3 mL Solution For Nebulization 3 ml inhalation Q4H PRN (Reason: Shortness Of Breath) Qty: 90 3RF lisinopril 2.5 mg tablet 2.5 mg PO DAILY Qty: 90 0RF atorvastatin 40 mg tablet 40 mg PO DAILY Qty: 90 0RF Discharge Orders: Discharge ED (Routine); Ordered 10/07/22 Ordered By: Ami Haddad Referrals: Karo Brooks APN [Primary Care Provider] - Discharge Diet: Advance as tolerated Discharge Activity: Resume usual activity Patient Instructions: Chest Pain (ED) Coding Level of Care Code ED Oil Well Gun Perforator Operator for Chg Fwd Exam Detailed Documented by User: Ami Haddad MD 10/07/22 19:05 HPI - Chest Pain General: Chief Complaint: Chest Pain Stated Complaint: Chest Pains, Numbness in Arms Time Seen by Provider: 10/07/22 16:49 PFSH ED PFSH: Medical History Anxiety COPD (chronic obstructive pulmonary disease) Diabetes mellitus, type II Currently diet controlled 3 para 3 Hiatal hernia History of COVID-19 (~04/2020) with some non respiratory persistent symptoms Hx of supraventricular tachycardia Surgical History History of colonoscopy (~2016) History of esophagogastroduodenoscopy (EGD) (~2016) History of tubal ligation Family History Father Cancer lung Mother Cancer lung Social History Smoking and tobacco status: current every day smoker cigarettes Alcohol intake: current Alcohol intake frequency: holidays/special occasions only Household members: spouse Marital status: Course Vital Signs: Vital signs: Vital Signs Temperature 97.7 F 10/07/22 16:08 Pulse Rate 98 10/07/22 19:12 Respiratory Rate 16 10/07/22 19:12 Blood Pressure 144/102 10/07/22 19:12 Pulse Oximetry 96 10/07/22 19:12 Oxygen Delivery Me thod 10/07/22 18:00 MDM - Chest Pain Medical Decision Making Care signed out to Dr. Haddad at change of shift. See final notes for diagnosis and disposition. Patient's troponin is normal she feels much improved she is well-appearing here no signs acute coronary syndrome she is to follow-up with her PCP and return if worsening she understands agrees to plan. Lab Data 10/07/22 16:41 10/07/22 16:41 Radiology Impressions Chest X-Ray 10/07/22 16:13 IMPRESSION: No acute findings. Laboratory Results WBC 10.5 10^3/uL (4.0-10.0) H 10/07/22 16:41 RBC 4.44 10^6/uL (4.1-5.3) 10/07/22 16:41 Hgb 12.6 g/dL (11.5-15.3) 10/07/22 16:41 Hct 38.9 % (37.0-47.0) 10/07/22 16:41 MCV 87.6 fl (81-99) 10/07/22 16:41 MCH 28.4 pg (28.0-34.0) 10/07/22 16:41 MCHC 32.4 g/dL (30.0-36.0) 10/07/22 16:41 RDW 14.7 % (12.1-15.1) 10/07/22 16:41 Plt Count 271 10^3/cmm (130-400) 10/07/22 16:41 MPV 11.0 fL (7.4-10.4) H 10/07/22 16:41 Neut % (Auto) 66.9 % 10/07/22 16:41 Lymph % (Auto) 24.3 % 10/07/22 16:41 [place] % (Auto) 5.7 % 10/07/22 16:41 Eos % (Auto) 2.1 % 10/07/22 16:41 Baso % (Auto) 0.7 % 10/07/22 16:41 Neut # (Auto) 7.02 10^3/uL (1.8-7.7) 10/07/22 16:41 Lymph # (Auto) 2.6 10^3/uL (0.8-4.8) 10/07/22 16:41 [place] # (Auto) 0.6 10^3/uL (0.2-0.9) 10/07/22 16:41 Eos # (Auto) 0.2 10^3/uL (0.0-0.8) 10/07/22 16:41 Baso # (Auto) 0.1 10^3/uL (0.0-0.1) 10/07/22 16:41 Nucleated RBC % (auto) 0 % 10/07/22 16:41 Nucleated RBCs # 0.0 /100WBC 10/07/22 16:41 Sodium 136 mmol/L (136-145) 10/07/22 16:41 Potassium 4.2 mmol/L (3.5-5.1) 10/07/22 16:41 Chloride 99 mmol/L (98-107) 10/07/22 16:41 Carbon Dioxide 26 mmol/L (22-29) 10/07/22 16:41 Anion Gap 15.2 (5-19) 10/07/22 16:41 BUN 11 mg/dL (6-20) 10/07/22 16:41 Creatinine 0.7 mg/dL (0.5-0.9) 10/07/22 16:41 GFR Calculation 90.5 mL/min (90-130) 10/07/22 16:41 Glucose 379 mg/dL (65-115) H 10/07/22 16:41 Calculated Osmolality 297 mOsm/kg (285-295) H 10/07/22 16:41 Calcium 9.6 mg/dL (8.5-10.5) 10/07/22 16:41 Total Bilirubin 0.2 mg/dL (0.15-1.2) 10/07/22 16:41 AST 9 U/L (0-32) 10/07/22 16:41 ALT 17 U/L (0-33) 10/07/22 16:41 Alkaline Phosphatase 142 U/L (35-105) H 10/07/22 16:41 Troponin T Baseline 11 ng/L (0-10) H 10/07/22 16:41 Troponin T 120 Minute 12.92 ng/L (0-10) H 10/07/22 18:27 Delta Troponin T 1.92 ABS# (0-10) 10/07/22 18:27 Total Protein 6.8 g/dL (6.6-8.7) 10/07/22 16:41 Albumin 4.0 g/dL (3.5-5.2) 10/07/22 16:41 Globulin 2.8 g/dL (1.3-4.6) 10/07/22 16:41 HCG, Qual Negative (Negative) 10/07/22 16:41 Discharge Plan Discharge Patient Disposition: Home Clinical Impression: Chest pain Condition: Stable Prescriptions: No Action glipizide 10 mg tablet 10 mg PO BID Levemir FlexTouch U-100 Insuln 100 unit/mL (3 mL) insulin pen 40 unit SUBCUT DAILY insulin aspart U-100 [Novolog FlexPen U-100 Insulin] 100 unit/mL (3 mL) insulin pen 5 unit SUBCUT TID Rx Instructions: Just a SS Victoza 2-Beni 0.6 mg/0.1 mL (18 mg/3 mL) pen injector 1.8 mg SUBCUT DAILY Qty: 27 3RF Rx Instructions: 0.6mg [id number], 1.2mg [id number] then 1.8 and continue venlafaxine [Effexor XR] 75 mg capsule,extended release 24hr 75 mg PO DAILY Qty: 7 0RF Rx Instructions: take 75mg for 7 days then increase to 150mg venlafaxine [Effexor XR] 150 mg capsule,extended release 24hr 150 mg PO DAILY Qty: 30 3RF buspirone 5 mg tablet 5 mg PO BID PRN (Reason: Anxiety) albuterol sulfate 90 mcg/actuation HFA aerosol inhaler 2 inh INHALATION Q6H ipratropium-albuterol 0.5 mg-3 mg(2.5 mg base)/3 mL Solution For Nebulization 3 ml inhalation Q6H.RESPIRATORY Qty: 90 3RF ipratropium-albuterol 0.5 mg-3 mg(2.5 mg base)/3 mL Solution For Nebulization 3 ml inhalation Q4H PRN (Reason: Shortness Of Breath) Qty: 90 3RF lisinopril 2.5 mg tablet 2.5 mg PO DAILY Qty: 90 0RF atorvastatin 40 mg tablet 40 mg PO DAILY Qty: 90 0RF Discharge Orders: Discharge ED (Routine); Ordered 10/07/22 Ordered By: Ami Haddad Referrals: Karo Brooks APN [Primary Care Provider] - Discharge Diet: Advance as tolerated Discharge Activity: Resume usual activity Patient Instructions: Chest Pain (ED) Coding Level of Care Code ED Oil Well Gun Perforator Operator for Chg Fwd Exam Detailed
[2022-10-07 17:13] LABS: Troponin(5th) Baseline 11 ng/L (0-10)
--- NOTE | 2022-10-07 17:17 | PC.NURSE ---
entered room to start IV and draw blood for labs, pt sitting in bed, reading a book. requests to use restroom prior to IV initiation. pt ambulatory to restroom with steady gait.
[2022-10-07 17:24] LABS: HCG, Serum Qual Negative (Negative)
[2022-10-07 17:44] VITALS: BP 127/90; PULSE 101; RESP 18; O2SAT 97
[2022-10-07 17:56] LABS: Alanine Aminotransferase 17 U/L (0-33); Alkaline Phosphatase 142 U/L (35-105); Anion Gap 15.2 (5-19); Aspartate Amino Transferase 9 U/L (0-32); Blood Urea Nitrogen 11 mg/dL (6-20); Calcium 9.6 mg/dL (8.5-10.5); Carbon Dioxide 26 mmol/L (22-29); Chloride 99 mmol/L (98-107); Globulin 2.8 g/dL (1.3-4.6); Glomerular Filtration Rate 90.5 mL/min (90-130); Glucose 379 mg/dL (65-115); Osmolality Calculated 297 mOsm/kg (285-295); Potassium 4.2 mmol/L (3.5-5.1); Sodium 136 mmol/L (136-145); Total Bilirubin 0.2 mg/dL (0.15-1.2); Total Protein 6.8 g/dL (6.6-8.7)
[2022-10-07 18:00] VITALS: BP 127/90; PULSE 104; RESP 16; O2SAT 96
--- NOTE | 2022-10-07 18:13 | ECG_ITS ---
[facility] Test Date: 2022-10-07 Pat Name: Chelsy Melendez Department: Room: Gender: Female New Client Banking Services Clerk: : 1975 Requested By: Frederick Ledesma Order Number: [id number] Wharton MD: Honorio Garcia M.D. Measurements Intervals [place] Rate: 103 P: 47 VA: 148 QRS: -18 QRSD: 96 T: 49 QT: 347 QTc: 454 Interpretive Statements SINUS TACHYCARDIA Compared to ECG 10/07/2022 16:16:04 Right-axis deviation no longer present Electronically Signed On 10-08-2022 9:31:02 ASPHALT SCREED OPERATOR by Honorio Garcia M.D. [email or web address] memorial [email or web address]/[id number]
[2022-10-07 18:30] VITALS: BP 124/98; PULSE 104; RESP 21; O2SAT 97
[2022-10-07 18:57] LABS: Troponin 5 2HR 12.92 ng/L (0-10)
[2022-10-07 18:59] LABS: Troponin 5 2HR Delta 1.92 ABS# (0-10)
[2022-10-07 19:12] VITALS: BP 144/102; PULSE 98; RESP 16; O2SAT 96
== END 2022-10-07 19:13 | disposition home or self-care (01) ==
PROVIDERS: Physician Assistant; Emergency Provider Emergency Medicine; PCP Nurse Practitioner Family
DX: R07.9 Chest pain, unspecified (principal); Z79.84 Long term (current) use of oral hypoglycemic drugs; Z79.3 Long term (current) use of hormonal contraceptives; F17.210 Nicotine dependence, cigarettes, uncomplicated; J44.9 Chronic obstructive pulmonary disease, unspecified; E11.9 Type 2 diabetes mellitus without complications
CPT/HCPCS: 36415; 71045; 80053; 84484; 84703; 85025; 93005; 99285

== ENCOUNTER 2022-10-10 17:24 | Inpatient (IN) | payer BC, SELFPAY ==
[2022-10-10] VITALS (18 sets, daily range): BP systolic 122–186; BP diastolic 91–119; PULSE 99–118; RESP 11–29; TEMP 36.9; O2SAT 90–97; BMI 34.5; BMI 33.5
--- NOTE | 2022-10-10 17:29 | ECG_ITS ---
[facility] Test Date: 2022-10-10 Pat Name: Chelsy Melendez Department: Room: Gender: Female Medical Pathologist: : 1975 Requested By: Rashawn Stroud Order Number: [id number] Wharton MD: Lisset Meeks M.D. Measurements Intervals [place] Rate: 116 P: 52 SC: 150 QRS: -55 QRSD: 94 T: 57 QT: 323 QTc: 450 Interpretive Statements SINUS TACHYCARDIA POSSIBLE LEFT ATRIAL ENLARGEMENT [-0.1mV P-WAVE IN V1/V2] LEFT AXIS DEVIATION [QRS AXIS < -30] EARLY REPOLARIZATION [ST ELEVATION WITH NORMALLY INFLECTED T-WAVE] Compared to ECG 10/07/2022 18:25:48 Left-axis deviation now present Early repolarization now present Electronically Signed On 10-10-2022 21:42:35 FUR DRY CLEANER by Lisset Meeks M.D. [email or web address]/[id number] f
--- NOTE | 2022-10-10 17:32 | XRR_ITS ---
PROCEDURE INFORMATION: Exam: XR Chest Exam date and time: 10/10/2022 5:41 PM Age: 47 years old Clinical indication: Dyspnea; Additional info: Cp, bilateral arm numbness, HX of double pneumonia, PT was in here Thursday and also had a chest xray then. TECHNIQUE: Imaging protocol: Radiologic exam of the chest. Views: 1 view. COMPARISON: CR XR chest 1V portable [id number] 10/07/2022 4:23 PM FINDINGS: Lungs: No consolidation. Pleural spaces: No pleural effusion. No pneumothorax. Heart/Mediastinum: No cardiomegaly. Bones/joints: Unremarkable. XR/XR chest 1V portable [id number] IMPRESSION: 1. No acute abnormality demonstrated. 2. There is no interval change from the prior examination.
--- NOTE | 2022-10-10 17:43 | PM.CONSULT ---
Providers/Reason For Consult Consulting Physician/Specialty*: Honorio Garcia MD/ Interventional Cardiology Reason for Consult*: STEMI alert Primary Care Provider: Karo Brooks APN History of Present Illness History of Present Illness Chelsy Melendez is a 47 year old female with past medical history of diabetes, hypertension, hyperlipidemia who has presented to the hospital with significant substernal chest discomfort. STEMI alert was called from the field by EMS. She says after getting nitros, chest pain has subsided. EKG is not consistent with ST elevation AL. She says over the last 2 weeks that she has been having with severe substernal chest pain with radiation to her arms. Also has some radiation to the jaw. She was seen in the emergency room 3 days back with similar symptoms. ACS was ruled out and she was discharged home. Review of Systems Const: Denies: fever(s) or diaphoresis ENMT: Denies: throat pain, ear or mastoid pain, nasal discharge or nasal congestion Card: Reports: chest pain; Denies: palpitations or syncope Resp: Denies: dyspnea GI: Denies: abdominal pain, nausea or vomiting : Denies: flank pain, difficulty voiding, dysuria, urinary frequency or urinary urgency Skin/Breast: Denies: rash or pruritus Medications/Allergies Home Medications Medication Instructions Recorded Confirmed Last Taken Type albuterol sulfate 90 mcg/actuation 2 inh inhalation Q6H 02/23/21 12/03/21 02/22/21 History aerosol inhaler atorvastatin 40 mg tablet 40 mg PO DAILY #90 tabs 02/23/21 12/03/21 Unknown Rx buspirone 5 mg tablet 5 mg PO BID PRN Anxiety 02/23/21 12/03/21 Unknown History ipratropium 0.5 mg-albuterol 3 mg 3 ml inhalation Q4H PRN Shortness 02/23/21 12/03/21 Unknown Rx (2.5 mg base)/3 mL nebulization Of Breath #90 mL soln ipratropium 0.5 mg-albuterol 3 mg 3 ml inhalation Q6H.RESPIRATORY 02/23/21 12/03/21 Unknown Rx (2.5 mg base)/3 mL nebulization #90 mL soln lisinopril 2.5 mg tablet 2.5 mg PO DAILY #90 tabs 02/23/21 12/03/21 Unknown Rx glipizide 10 mg tablet 10 mg PO BID 08/20/21 12/03/21 Unknown History insulin aspart U-100 100 unit/mL 5 unit SUBCUT TID 08/20/21 12/03/21 Unknown History (3 mL) subcutaneous pen (Novolog FlexPen U-100 Insulin aspart) insulin detemir U-100 100 unit/mL 40 unit SUBCUT DAILY 08/20/21 12/03/21 Unknown History (3 mL) subcutaneous pen (Levemir FlexTouch U-100 Insulin) liraglutide 0.6 mg/0.1 mL (18 mg/3 1.8 mg (0.3 mL) SUBCUT DAILY #27 mL 08/20/21 12/03/21 Unknown Rx mL) subcutaneous pen injector (Victoza 2-Beni) venlafaxine 75 mg capsule,extended 75 mg PO DAILY #7 caps 10/09/21 12/03/21 Unknown Rx release 24 hr (Effexor XR) venlafaxine 150 mg 150 mg PO DAILY #30 caps 10/21/21 12/03/21 Unknown Rx capsule,extended release 24 hr (Effexor XR) Allergies Allergy/AdvReac Type Severity Reaction Status Date / Time codeine Allergy ADR-Nightma Verified 12/03/21 15:14 re Influenza Virus Vaccines Allergy ADR-Vomitin Verified 12/03/21 15:14 g PFSH Acute PFSH: Medical History Anxiety COPD (chronic obstructive pulmonary disease) Diabetes mellitus, type II Currently diet controlled 3 para 3 Hiatal hernia History of COVID-19 (~04/2020) with some non respiratory persistent symptoms Hx of supraventricular tachycardia Surgical History History of colonoscopy (~2016) History of esophagogastroduodenoscopy (EGD) (~2016) History of tubal ligation Family History Father Cancer lung Mother Cancer lung Social History Smoking and tobacco status: current every day smoker cigarettes Alcohol intake: current Alcohol intake frequency: holidays/special occasions only Household members: spouse Marital status: Female Reproductive History: Date of last menstrual period: 02/19/21 Vitals/I&O/Wt Last Vital Signs Temp 98.4 F 10/10/22 17:25 Pulse 118 H 10/10/22 17:25 Resp 18 10/10/22 17:25 BP 186/107 10/10/22 17:25 Pulse Ox 96 10/10/22 17:25 O2 Del Method 10/10/22 17:25 Weight last 48 hrs Weight 189 lb Physical Exam Narrative: GENERAL: Patient is alert, awake and oriented x3. [] NECK: No jugular vein distension. [] HEENT: No cyanosis. No icterus. No pallor. [] HEART: Tachycardic, regular S1 and S2. LUNGS: Clear to auscultate bilaterally. [] CENTRAL NERVOUS SYSTEM: Grossly nonfocal. [] EXTREMITIES: Lower extremities with 1+ edema bilaterally. Pulses palpable in the lower extremities, both dorsalis pedis and posterior tibial. [] Data 10/10/22 16:10 10/10/22 16:10 A&P Assessment and plan (1) Chest pain: (2) Diabetic neuropathy associated with type 2 diabetes mellitus: Plan Patient's chest pain symptoms are typical but no ischemic EKG changes. We will treat it as unstable angina. Chest pain has resolved with sublingual nitros Trend trops Aspirin loaded. Can be put on anticoagulation. if chest pain recurs, can be put on nitroglycerine gtt and repeat EKG Order echocardiogram NPO past midnight for possible coronary angiogram with possible percutaneous coronary intervention. Consult Attestations Medical Necessity Statement: Care expected to cross 2 midnights. Coding Level of Care Code Acute Code for g Fwd Diagnoses Chest pain R07.9 Diabetic neuropathy associated with type 2 diabetes mellitus E11.40
[2022-10-10 17:54] LABS: Basophils # 0.1 10^3/uL (0.0-0.1); Basophils % 0.7 %; Eosinophils # 0.2 10^3/uL (0.0-0.8); Eosinophils % 1.6 %; Hematocrit 39.6 % (37.0-47.0); Hemoglobin 13.2 g/dL (11.5-15.3); Lymphocytes % 20.2 %; Mean Corpuscular HGB Conc 33.3 g/dL (30.0-36.0); Mean Corpuscular Hemoglobin 28.4 pg (28.0-34.0); Mean Corpuscular Volume 85.3 fl (81-99); Monocytes # 0.6 10^3/uL (0.2-0.9); Monocytes % 6.1 %; Neutrophils # 7.15 10^3/uL (1.8-7.7); Neutrophils % 71.2 %; Nucleated Red Blood Cells % 0 %; Platelet Count 217 10^3/cmm (130-400); Red Blood Count 4.64 10^6/uL (4.1-5.3); Red Cell Distribution Width 14.6 % (12.1-15.1)
[2022-10-10 18:05] LABS: Troponin(5th) Baseline 43 ng/L (0-10)
[2022-10-10 18:14] LABS: Alanine Aminotransferase 16 U/L (0-33); Albumin Level 4.1 g/dL (3.5-5.2); Alkaline Phosphatase 157 U/L (35-105); Blood Urea Nitrogen 10 mg/dL (6-20); Carbon Dioxide 22 mmol/L (22-29); Chloride 96 mmol/L (98-107); Globulin 3.2 g/dL (1.3-4.6); Glomerular Filtration Rate 108.1 mL/min (90-130); Glucose 490 mg/dL (65-115); Lipase 20 U/L (13-60); NT Pro B Type Natriuretic Pept 69 pg/mL (0-125); Osmolality Calculated 291 mOsm/kg (285-295); Sodium 130 mmol/L (136-145); Total Bilirubin 0.3 mg/dL (0.15-1.2); Total Protein 7.3 g/dL (6.6-8.7)
[2022-10-10 18:15] LABS: Anion Gap 16.4 (5-19); Aspartate Amino Transferase 20 U/L (0-32); Potassium 4.4 mmol/L (3.5-5.1)
[2022-10-10 18:16] LABS: Slide Review Slide Review Perform
[2022-10-10 18:18] LABS: Mean Platelet Volume 13.1 fL (7.4-10.4)
[2022-10-10] MEDS: sodium chloride 0.9% 1,000 ML 999 ML IV ×2 (18:26→19:30)
[2022-10-10 18:35] LABS: Troponin 5 2HR 45.06 ng/L (0-10)
--- NOTE | 2022-10-10 18:40 | ED_ITS ---
HPI - Chest Pain General: Chief Complaint: Chest Pain Stated Complaint: STEMI/ CP Time Seen by Provider: 10/10/22 17:25 History of Present Illness: 47-year-old female in for evaluation of chest pain. Patient was seen here earlier in the week and had an evaluation that was nondiagnostic. Patient unfortunately continued to have some pain on and off throughout the week and then today it got significantly worse. The patient is a diabetic who is insulin requiring she also has concerns of hypertension but has never had any cardiac history. The patient's had several cardiac work-ups over the years that have been nondiagnostic. The patient reports mild shortness of breath the pain became worse today so she called the ambulance the ambulance got rhythm strip and had some concerns about whether she had some ST elevation. The patient was brought emergently to the hospital for evaluation she denied any vomiting or diaphoresis. She did report the pain radiated somewhat to her arms. Associated symptoms: Reports dyspnea; Deny palpitations or syncope Risk Factors: Coronary artery disease risk factors: diabetes, smoking history, hyperlipidemia and hypertension Review of Systems General: Reports: 10 or more systems reviewed and unremarkable except in HPI and below Card: Reports: chest pain, pre-syncope and dyspnea on exertion; Denies: palpitations, irregular heart rhythm, edema, swelling of feet/ankles, lightheadedness, syncope, orthopnea or leg pain with exertion Resp: Reports: dyspnea; Denies: productive cough, non-productive cough, pain on inspiration, hemoptysis or chest congestion [facility] ED PFSH: Medical History Anxiety COPD (chronic obstructive pulmonary disease) Diabetes mellitus, type II Currently diet controlled 3 para 3 Hiatal hernia History of COVID-19 (~04/2020) with some non respiratory persistent symptoms Hx of supraventricular tachycardia Surgical History History of colonoscopy (~2016) History of esophagogastroduodenoscopy (EGD) (~2017) History of tubal ligation Family History Father Cancer lung Mother Cancer lung Social History Smoking and tobacco status: current every day smoker cigarettes Alcohol intake: current Alcohol intake frequency: holidays/special occasions only Household members: spouse Marital status: Female Reproductive History: Date of last menstrual period: 02/19/21 Physical Exam Const: OTHER: 47-year-old female appears in mild distress older than her stated age and chronically ill. Chest: CHEST: No abnormal inspection of the chest and Yes Symmetrical chest wall rise Resp: COMMON NORMALS: clear to auscultation bilaterally AUSCULTATION: clear to auscultation bilaterally, no crackles, no rales and no rhonchi Cardio: COMMON NORMALS: regular rate and regular rhythm RATE: regular rate RHYTHM: regular rhythm Neuro: OTHER: Nonfocal Psych: OTHER: Anxious Course Vital Signs: Vital signs: Vital Signs Temperature 98.4 F 10/10/22 17:25 Pulse Rate 108 H 10/10/22 20:30 Respiratory Rate 14 10/10/22 20:30 Blood Pressure 162/102 10/10/22 20:30 Pulse Oximetry 92 10/10/22 20:30 Oxygen Delivery Me thod 10/10/22 20:42 Oxygen Flow Rate 4 10/10/22 19:27 MDM - Chest Pain Medical Decision Making 47-year-old female with multiple risk factors for coronary artery disease and with concerns of chest pain that radiates to her arms. Patient has some other nonspecific symptoms I do not think the initial EKG represents a STEMI. I called cardiology and asked them to review this as well and the insurance claims supervisor came down to the emergency department and evaluated the patient and recommended admission to the hospital for further observation and serial troponins and work- up acute coronary syndrome is in the differential. The patient's symptoms unfortunately progressed we did serial EKGs the second 1 performed at 1851 revealed some subtle changes and then a short time later the patient had obvious ST elevation [place] and hyperacute T waves. [employer] was activated STEMI protocol and orders were placed and patient was taken to the [employer]. Differential Diagnosis Likely acute massive pulmonary embolism, acute respiratory failure, acute myocardial infarction, cardiac arrest and sudden cardiac Lab Data 10/10/22 16:10 10/10/22 16:10 Radiology Impressions Chest X-Ray 10/10/22 17:32 IMPRESSION: 1. No acute abnormality demonstrated. 2. There is no interval change from the prior examination. Laboratory Results WBC 10.0 10^3/uL (4.0-10.0) 10/10/22 16:10 RBC 4.64 10^6/uL (4.1-5.3) 10/10/22 16:10 Hgb 13.2 g/dL (11.5-15.3) 10/10/22 16:10 Hct 39.6 % (37.0-47.0) 10/10/22 16:10 MCV 85.3 fl (81-99) 10/10/22 16:10 MCH 28.4 pg (28.0-34.0) 10/10/22 16:10 MCHC 33.3 g/dL (30.0-36.0) 10/10/22 16:10 RDW 14.6 % (12.1-15.1) 10/10/22 16:10 Plt Count 217 10^3/cmm (130-400) 10/10/22 16:10 MPV 13.1 fL (7.4-10.4) H 10/10/22 16:10 Neut % (Auto) 71.2 % 10/10/22 16:10 Lymph % (Auto) 20.2 % 10/10/22 16:10 [place] % (Auto) 6.1 % 10/10/22 16:10 Eos % (Auto) 1.6 % 10/10/22 16:10 Baso % (Auto) 0.7 % 10/10/22 16:10 Neut # (Auto) 7.15 10^3/uL (1.8-7.7) 10/10/22 16:10 Lymph # (Auto) 2.0 10^3/uL (0.8-4.8) 10/10/22 16:10 [place] # (Auto) 0.6 10^3/uL (0.2-0.9) 10/10/22 16:10 Eos # (Auto) 0.2 10^3/uL (0.0-0.8) 10/10/22 16:10 Baso # (Auto) 0.1 10^3/uL (0.0-0.1) 10/10/22 16:10 Nucleated RBC % (auto) 0 % 10/10/22 16:10 Nucleated RBCs # 0.0 /100WBC 10/10/22 16:10 Sodium 130 mmol/L (136-145) L 10/10/22 16:10 Potassium 4.4 mmol/L (3.5-5.1) 10/10/22 16:10 Chloride 96 mmol/L (98-107) L 10/10/22 16:10 Carbon Dioxide 22 mmol/L (22-29) 10/10/22 16:10 Anion Gap 16.4 (5-19) 10/10/22 16:10 BUN 10 mg/dL (6-20) 10/10/22 16:10 Creatinine 0.6 mg/dL (0.5-0.9) 10/10/22 16:10 GFR Calculation 108.1 mL/min (90-130) 10/10/22 16:10 Glucose 490 mg/dL (65-115) H 10/10/22 16:10 Calculated Osmolality 291 mOsm/kg (285-295) 10/10/22 16:10 Calcium 9.0 mg/dL (8.5-10.5) 10/10/22 16:10 Total Bilirubin 0.3 mg/dL (0.15-1.2) 10/10/22 16:10 AST 20 U/L (0-32) 10/10/22 16:10 ALT 16 U/L (0-33) 10/10/22 16:10 Alkaline Phosphatase 157 U/L (35-105) H 10/10/22 16:10 Troponin T Baseline 43 ng/L (0-10) H 10/10/22 16:10 Troponin T 120 Minute 45.06 ng/L (0-10) H 10/10/22 18:01 Delta Troponin T 2.06 ABS# (0-10) 10/10/22 18:01 NT-Pro-B Natriuret Pep 69 pg/mL (0-125) 10/10/22 16:10 Total Protein 7.3 g/dL (6.6-8.7) 10/10/22 16:10 Albumin 4.1 g/dL (3.5-5.2) 10/10/22 16:10 Globulin 3.2 g/dL (1.3-4.6) 10/10/22 16:10 Lipase 20 U/L (13-60) 10/10/22 16:10 Discharge Plan Discharge Patient Disposition: Admitted As Inpatient Admit Provider: Honorio Garcia Clinical Impression: Hypertension, STEMI (ST elevation myocardial infarction) Condition: Stable Coding Level of Care Code ED Remodeler for Carol Roy
[2022-10-10 18:48] LABS: Troponin 5 2HR Delta 2.06 ABS# (0-10)
[2022-10-10] MEDS: nitroglycerin 0.4 mg sublingual Tablet (18:52)
[2022-10-10] MEDS: clopidogrel 300 mg Tablet PO ×2 (19:21→21:16)
[2022-10-10] MEDS: heparin 5,000 unit/mL INJ 1 mL 4000 UNIT IVP (19:22)
[2022-10-10] MEDS: sodium chloride 0.9% 500 ML 999 ML IV (19:23)
--- NOTE | 2022-10-10 19:26 | P.HP_ITS ---
Providers/Chief Complaint Admitting Physician: Honorio Garcia MD Primary Care Provider: Karo Brooks APN Chief Complaint: STEMI/ CP History of Present Illness Chelsy Melendez is a 47 year old female with past medical history of diabetes, hypertension, hyperlipidemia who was seen in the emergency room 3 days back with chest pain symptoms. ACS was ruled out and she was discharged home. She has presented again with ongoing chest pain. It is substernal. She says it was severe. After getting nitroglycerin her chest pain resolved. EKG was not consistent with ST elevation [place]. While in the ER she started having chest pain episodes again and repeat EKG was consistent with inferior wall ST elevation [place] with reciprocal changes in lateral leads. Cardiac Telephone Sterilizer was emergently activated and patient brought to the Telephone Sterilizer for emergent coronary angiogram. Review of Systems Const: Denies: fever(s) or diaphoresis ENMT: Denies: throat pain, ear or mastoid pain, nasal discharge or nasal congestion Card: Reports: chest pain; Denies: palpitations or syncope Resp: Denies: dyspnea GI: Denies: abdominal pain, nausea or vomiting : Denies: flank pain, difficulty voiding, dysuria, urinary frequency or urinary urgency Skin/Breast: Denies: rash or pruritus Medications/Allergies Home Medications Medication Instructions Recorded Confirmed Last Taken Type albuterol sulfate 90 mcg/actuation 2 inh inhalation Q6H 02/23/21 12/03/21 02/22/21 History aerosol inhaler atorvastatin 40 mg tablet 40 mg PO DAILY #90 tabs 02/23/21 12/03/21 Unknown Rx buspirone 5 mg tablet 5 mg PO BID PRN Anxiety 02/23/21 12/03/21 Unknown History ipratropium 0.5 mg-albuterol 3 mg 3 ml inhalation Q4H PRN Shortness 02/23/21 12/03/21 Unknown Rx (2.5 mg base)/3 mL nebulization Of Breath #90 mL soln ipratropium 0.5 mg-albuterol 3 mg 3 ml inhalation Q6H.RESPIRATORY 02/23/21 12/03/21 Unknown Rx (2.5 mg base)/3 mL nebulization #90 mL soln lisinopril 2.5 mg tablet 2.5 mg PO DAILY #90 tabs 02/23/21 12/03/21 Unknown Rx glipizide 10 mg tablet 10 mg PO BID 08/20/21 12/03/21 Unknown History insulin aspart U-100 100 unit/mL 5 unit SUBCUT TID 08/20/21 12/03/21 Unknown History (3 mL) subcutaneous pen (Novolog FlexPen U-100 Insulin aspart) insulin detemir U-100 100 unit/mL 40 unit SUBCUT DAILY 08/20/21 12/03/21 Unknown History (3 mL) subcutaneous pen (Levemir FlexTouch U-100 Insulin) liraglutide 0.6 mg/0.1 mL (18 mg/3 1.8 mg (0.3 mL) SUBCUT DAILY #27 mL 08/20/21 12/03/21 Unknown Rx mL) subcutaneous pen injector (Victoza 2-Beni) venlafaxine 75 mg capsule,extended 75 mg PO DAILY #7 caps 10/09/21 12/03/21 Unknown Rx release 24 hr (Effexor XR) venlafaxine 150 mg 150 mg PO DAILY #30 caps 10/21/21 12/03/21 Unknown Rx capsule,extended release 24 hr (Effexor XR) Allergies Allergy/AdvReac Type Severity Reaction Status Date / Time codeine Allergy ADR-Nightma Verified 12/03/21 15:14 re Influenza Virus Vaccines Allergy ADR-Vomitin Verified 12/03/21 15:14 g PFSH Acute PFSH: Medical History Anxiety COPD (chronic obstructive pulmonary disease) Diabetes mellitus, type II Currently diet controlled 3 para 3 Hiatal hernia History of COVID-19 (~04/2020) with some non respiratory persistent symptoms Hx of supraventricular tachycardia Surgical History History of colonoscopy (~2016) History of esophagogastroduodenoscopy (EGD) (~2016) History of tubal ligation Family History Father Cancer lung Mother Cancer lung Social History Smoking and tobacco status: current every day smoker cigarettes Alcohol intake: current Alcohol intake frequency: holidays/special occasions only Household members: spouse Marital status: Female Reproductive History: Date of last menstrual period: 02/19/21 Vitals/I&O/Wt Last Vital Signs Temp 98.4 F 10/10/22 17:25 Pulse 99 10/10/22 18:41 Resp 14 10/10/22 18:41 BP 165/118 10/10/22 18:41 Pulse Ox 96 10/10/22 18:41 O2 Del Method 10/10/22 18:41 Weight last 48 hrs Weight 189 lb Physical Exam Narrative: GENERAL: Patient is alert, awake and oriented x3. [] NECK: No jugular vein distension. [] HEENT: No cyanosis. No icterus. No pallor. [] HEART: Regular S1 and S2. No murmur, rub or gallop. [] LUNGS: Clear to auscultate bilaterally. [] CENTRAL NERVOUS SYSTEM: Grossly nonfocal. [] EXTREMITIES: Lower extremities with 1+ edema bilaterally. Pulses palpable in the lower extremities, both dorsalis pedis and posterior tibial. [] Data 10/10/22 16:10 10/10/22 16:10 A&P Assessment and plan (1) STEMI (ST elevation myocardial infarction): (2) Diabetic neuropathy associated with type 2 diabetes mellitus: (3) Diabetes: (4) Hypertension: Plan Patient had presented with unstable anginal symptoms. Her initial EKG was not c onsistent with ST elevation TN. Her chest pain had resolved with sublingual nitro was given by EMS. In the emergency room she again started having chest pain. Repeat EKG was consistent with acute inferior wall ST elevation TN. She will be emergently taken to cardiac Telephone Sterilizer for emergent catheterization. Risks and benefits of the procedure have been discussed with the patient. She understands the risks and benefits and wants to proceed with it. Aspirin and Plavix loaded Heparin bolus given We will order echocardiogram We will consult hospitalist team for management of medical issues including diabetes. Attestations Medical Necessity Statement*: Care expected to cross 2 midnights. Patient has presented with unstable angina and converted into ST elevation TN. She is going to undergo coronary angiogram with possible percutaneous coronary intervention Coding Level of Care Code Acute Code for [facility] Fwd Diagnoses STEMI (ST elevation myocardial infarction) I21.3 Diabetic neuropathy associated with type 2 diabetes mellitus E11.40 Diabetes E11.9 Hypertension I10
--- NOTE | 2022-10-10 19:32 | ECG_ITS ---
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 Measurements Intervals [place] Rate: 103 P: 44 MA: 218 QRS: 82 QRSD: 130 T: 84 QT: 350 QTc: 459 Interpretive Statements SINUS TACHYCARDIA WITH FIRST DEGREE AV BLOCK POSSIBLE LEFT ATRIAL ENLARGEMENT [-0.1mV P-WAVE IN V1/V2] MODERATE INTRAVENTRICULAR CONDUCTION DELAY [105+ ms QRS DURATION, 80+ ms Q/S IN V1/V2, NO Q AND 60+ ms R IN I/aVL/V5/V6] MARKED ST ELEVATION, CONSIDER INFERIOR INJURY [MARKED ST ELEVATION W/O NORMALLY INFLECTED T-WAVE IN II/aVF] MARKED ST ELEVATION, CONSIDER ANTEROLATERAL INJURY [MARKED ST ELEVATION W/O NORMALLY INFLECTED T-WAVE IN V3-V6] ACUTE VT Compared to ECG 10/10/2022 18:49:47 First degree AV block now present Intraventricular conduction delay now present ST (T wave) deviation still present Myocardial infarct finding still present Electronically Signed On 10-10-2022 22:06:43 [employer] by Lisset Meeks M.D. [id number]
--- NOTE | 2022-10-10 19:33 | XACV_ITS ---
Exam Room: 2 Ht: 157 cm Wt: 86 kg BSA: 1.98 m2 Gender: Female : 1975 Any Known Allergies: Other Exam Priority: Routine Procedure(s): Procedure Description: Diagnostic procedure Procedure Description: PCI procedure Procedure Description: Drug Eluting Coronary Stent Procedure Description: PTCA Procedure Description: Miscellaneous Procedure Description: ACT Procedure Description: Coronary Angiography Diagnostic Cath Status: Emergency Diagnostic Findings * INDICATION: 47 year old female with past medical history of diabetes, hypertension, hyperlipidemia who was seen in the emergency room 3 days back with chest pain symptoms. ACS was ruled out and she was discharged home. She has presented again with ongoing chest pain. It is substernal. She says it was severe. After getting nitroglycerin her chest pain resolved. EKG was not consistent with ST elevation [place]. While in the ER she started having chest pain episodes again and repeat EKG was consistent with inferior wall ST elevation [place] with reciprocal changes in lateral leads. Cardiac Group Product Manager was emergently activated and patient brought to the Group Product Manager for emergent coronary angiogram. * Mid Right Coronary Artery: total thrombotic occlusion, ML: 3 flow. * Left Anterior Descending is a medium sized vessel and has no significant disease. * Circumflex has no significant disease. * Left Main has no disease. * Coronary angiography shows right dominance. PCI Status: Emergency PCI Indication: STEMI - Immediate PCI for STEMI Interventional Findings * PROCEDURE DETAIL: We engaged RCA with JR4 guide catheter. IV heparin was administered to maintain ACT above 250 S. 0.014 run-through guidewire was used to cross the totally occluded segment and was put in distal vessel. We predilated the occluded segment with 2.5 x 12 mm semicompliant balloon. This was followed by placement of 4.0 x 18 mm resolute [place] drug-eluting stent. At this time we will performed a final angiogram that showed excellent stent expansion, no residual stenosis and ML-3 flow. Guidewire and guide catheter were removed. Patient left the Group Product Manager in a stable condition.. * Mid Right Coronary Artery: 100% stenosis treated with a AB TREK 2.50X12 RX BALLOON, and MDT R LUIS CARLOS 4.0X18 NORA. 0% residual stenosis, ML: 3 flow. Conclusions 1. Total thrombotic occlusion of mid RCA s/p successful revascularization with NORA x1.. 2. Mid Right Coronary Artery was treated with a Balloon, and Drug Eluting Stent. Recommendations * Transfer to ICU. * Dual antiplatelet therapy with aspirin and Plavix. * High intensity statin therapy. * Outpatient cardiology follow up in 2-4 weeks. Interventional RX Recommendation: PCI w/o planned CABG Diagnostic RX Recommendation: PCI w/o planned CABG Anticoagulation: Heparin Pressures Phase:Rest AO : 155 / 104 ( 103 ) @ 2:16:23 PM 165 / 110 ( 135 ) @ 2:16:23 PM 161 / 84 ( 112 ) @ 2:16:23 PM Clinical Evaluation EBL: 5mL-10mL Procedural Details Pre-Procedure Time Out. Identified patient by full name and date of as verbalized by the patient/guarantor. Does the consent match the physician's order: N/A Emergent; Informed Consent not obtained due to time critical life threat. Accurate & Complete Informed Consent: N/A Emergent; Informed Consent not obtained due to time critical life threat. Inpatient/Outpatient History & Physical on Chart: N/A Emergent; Informed Consent not obtained due to time critical life threat. If H&P is completed, is and addenduem needed: N/A Emergent; Informed Consent not obtained due to time critical life threat; If yes, is the addendum complete: N/A Emergent; Informed Consent not obtained due to time critical life threat. Visualize and Verify Site with Patient/Guarantor: N/A. Relevant Radiology Images available: N/A Emergent; Informed Consent not obtained due to time critical life threat. Pre-op teaching completed and patient verbalized understanding. The risks, benefits, and alternatives of sedation and/or procedure were discussed by physician. The patient agrees to continue. Procedure started. [facility] Clinical Fraility Score: 3: Managing Well. Group Product Manager Indications: ACS <= 24 hours. Chest Pain Symptom Assessment: Typical Angina Symptoms. Cardiovascular Instability: Yes, if yes, Persistant Ischemic Symptoms. Correct patient, site and procedure confirmed by cath team. Current diagnosis: STEMI. PERRLA. 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 Lungs clear x 5 lobes. Patient's family unavailable. Equipment: 6F - Radial. Cardiac Cath Pack. [employer] Manifold Kit Model BT 2000. Heparinized Saline (2 units/mL), 1000 mL bag. Physician arrived. Physician scrubbed in. Immediate Pre-Procedure Time Out. Correct Patient: Yes; Correct Procedure: Yes; Correct Site: Yes; Correct Patient Position: Yes; Correct Supplies: Yes; Dried Flammable Prep: Yes; Blood Products Available: n/a. Lidocaine 1% infiltrated to the right groin. Arterial access obtained with micropuncture set. IV Site on Arrival: 20 gauge in the right anticubital. IV Site on Arrival: 18 gauge in the left wrist. IV Site on Arrival: 20 gauge in the left anticubital. IV Fluids: 0.9% NaCl at KVO. 0 mL infused prior to lab courier. Oxygen started at 4liters/min via nasal canula. bilateral groins was prepped with chloroprep then draped in the usual sterile fashion. Wire and access needle out. Arterial access obtained with micropuncture set. 6 grenadian JR 4 guide catheter was inserted over the wire. Runthrough guidewire was advanced through the guide catheter to lesion in the mid RCA. Inflation number : 1 A AB TREK 2.50X12 RX BALLOON was prepped and advanced across the Mid RCA , then inflated to 12 GARY for 0:12 seconds. Balloon out. Inflation Number : 2 A ELVIRA Palmer LUIS CARLOS 4.0X18 NORA -Lot Number# [id number] was prepped and advanced across the Mid RCA. The stent was deployed at 12 GARY for 0:19 seconds. Exp . Stent balloon out over wire. Results checked. A 6 grenadian JL4 catheter in over wire. Multiple views taken of left coronary artery. AP pads were placed on the patient upon arrival to the lab courier. ACT drawn. Results 303 seconds. Therapeutic limits - pre-heparin administration 90-150 seconds and monitoring heparin during a vascular procedure >250 seconds. Catheter removed over the standard wire. A Right femoral angiogram was performed to determine safe placement of closure device. Angioseal placed without complications. No signs or symptoms of hematoma noted. Sterile dressing applied per usual sterile fashion. lot #[id number]. exp . Lidocaine 1% infiltrated to the right groin. A Angio-Seal VIP ([place]) was successful obtaining hemostatsis at the Right Femoral artery insertion site. Post Procedure: bilateral dorsalis pedis pulse 2+. Post Procedure: bilateral posterior tibial pulse 2+. PERRLA. 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 No VTE prophylaxis required. Total IV fluids: 50 mL. Medication's Wasted: Heparin = 1000 units. Medication's Wasted: Other = versed 1 mg. Medication's Wasted: Other = fentanyl 50 mcg. Medication's Wasted: Lidocaine 1% = 1 mL. PCI Indication: STEMI. Post-op diagnosis: PCI of the mid RCA. Complications: none. Estimated blood loss: 5mL-10mL. Responsiveness - Normal response to verbal stimuli; alert and oriented, PERRLA. Airway - Unaffected, no intervention required; spontaneous ventilation. Circulation: W/N/L, pulses unchanged. Nausea/Vomiting: No. Procedure completed. Patient transferred by bed to ICU. Vital chart was stopped. Access Site Site: Right Femoral artery Sheath Size: 6 Fr Hemostasis Method: Angio-Seal VIP ([place]) Hemostasis Success: Successful Procedure Medications Start: 7:45 PM Stop: 7:45 PM Medication: Versed Amount: 1 mg Route: I.V. Start: 7:51 PM Stop: 7:51 PM Medication: Heparin Amount: 5000 units Route: I.V. Start: 7:58 PM Stop: 7:58 PM Medication: Aggrastat 12.5 mg/250 mL Amount: 43 ml Route: I.V. bolus Start: 7:58 PM Stop: 7:58 PM Medication: Aggrastat 12.5 mg/250 mL Amount: 15.5 ml/hr Route: I.V. drip Start: 8:00 PM Stop: 8:00 PM Medication: Fentanyl Amount: 50 mcg Route: I.V. Start: 8:04 PM Stop: 8:04 PM Medication: Fentanyl Amount: 25 mcg Route: I.V. I, the attending physician, have reviewed and verified all procedure medications. Yes, all medications given per verbal order Report Signatures Finalized by Honorio Garcia MD on 10/15/2022 12:50 PM
--- NOTE | 2022-10-10 20:11 | PC.NURSE ---
contacted and is enroute to hospital.
--- NOTE | 2022-10-10 20:18 | PM.MISC ---
Miscellaneous Note Purpose of Documentation: Brief procedure note Note: [facility] findings: RCA: Total thrombotic occlusion of mid RCA S/p successful revascularization with NORA x1. Left main, LAD, and Left circumflex arteries do not have significant stenosis. Plan: Transfer to ICU Aspirin and Plavix for atleast 1 year High intensity statin therapy Beta blockers Aggrastat gtt for 4 hours
--- NOTE | 2022-10-10 20:21 | PC.NURSE ---
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 No chest pain reported @ this time. Verbal orders from Dr. Garcia to stop aggrastat @0300 and give one time order of 300mg plavix. Pt connected to continuos cardiac monitoring. Pt verbalized understanding of bedrest for the next 4 hours, ending @0030. See flow sheet for R.groin assessments. Radial and pedal pulses felt bilaterally. At approximately 2120 pt stated her ears were ringing, abruptly sat up, and vomited. Bed was placed in a reverse trendelenburg position w/ the head elevated. Pt was instructed to keep her leg straight and lay back. R. groin was assessed. No bleeding noted, dressing dry and intact, no hematoma felt, good peal pulses. Pt reports 0/[address] Garcia updated. New order for PRN Zofran.
[2022-10-10] MEDS: atorvastatin 40 mg Tablet 80 MG PO (20:48)
[2022-10-10] MEDS: metoprolol tartrate 50 mg Tablet PO (20:48)
[2022-10-10] MEDS: sodium chloride 0.9% 1,000 ML 100 ML IV (20:51)
--- NOTE | 2022-10-10 21:15 | ECG_ITS ---
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 Measurements Intervals [place] Rate: 100 P: 56 AL: 160 QRS: -22 QRSD: 102 T: 11 QT: 360 QTc: 465 Interpretive Statements SINUS TACHYCARDIA BORDERLINE LEFT AXIS DEVIATION [QRS AXIS < -20] ACUTE PERICARDITIS - EXCLUDE ACUTE VT [MARKED ST ELEVATION W/O NORMALLY INFLECTED T-WAVE] ACUTE VT Compared to ECG 10/10/2022 19:10:05 First degree AV block no longer present Intraventricular conduction delay no longer present ST (T wave) deviation still present Myocardial infarct finding still present Electronically Signed On 10-12-2022 11:35:06 DIRECTOR TELEVISION by Honorio Garcia M.D. [id number]
[2022-10-10] MEDS: ondansetron 2 mg/ML SDV 2 mL 4 MG IVP (21:37)
--- NOTE | 2022-10-10 21:40 | PM.CONSULT ---
Providers/Reason For Consult Consulting Physician/Specialty*: Huma joiner MD/infectious disease Reason for Consult*: management of DM Attending Physician: Honorio Garcia M.D Primary Care Provider: Karo Brooks APN History of Present Illness History of Present Illness Chelsy Melendez is a 47 year old female with past medical history of uncontrolled diabetes, hypertension, hyperlipidemia ?admitted for chest pain and found to have a STEMI. She was taken to asset availability leader and received NORA to RCA by cardiology. Currently chest pain free. Hospitalist is consulted for DM management. her blood sugar is currently 389, 490 on admission. Normal anion gap. Review of Systems General: Reports: 10 or more systems reviewed and unremarkable except in HPI and below Const: Denies: fever(s), chills or body aches Eyes: Denies: change in vision, blurry vision or photophobia ENMT: Reports: hoarseness; Denies: throat pain, enlarged tonsils, odynophagia or nasal congestion Card: Denies: chest pain, palpitations, irregular heart rhythm, edema, swelling of feet/ankles, lightheadedness, pre-syncope, dyspnea on exertion or orthopnea Resp: Denies: dyspnea, productive cough, non-productive cough, wheezing, stridor, pain on inspiration, change in phlegm color, hemoptysis or chest congestion GI: Denies: abdominal pain, nausea, vomiting, hematemesis, coffee ground emesis, dysphagia, heartburn, diarrhea, constipation, GI cramping, change in stool character, hematochezia or melena : Denies: flank pain, difficulty voiding, dysuria, urinary frequency, urinary urgency, urinary hesitancy or hematuria Musc: Denies: neck pain, back pain, extremity pain, joint swelling, joint warmth or deformity Neuro: Denies: headache(s), numbness in extremities, weakness in extremities, sensory changes, difficulty walking, frequent falls, dizziness, vertigo, behavioral changes, Slurred speech present or seizure-like activity Psych: Denies: anxiety, depression, suicidal ideation or homicidal ideation Endo: Denies: polyuria, polydipsia, tired all the time, cold intolerance or hot flashes Ezequiel/Lymph: Denies: easy bruising or easy bleeding Medications/Allergies Home Medications Medication Instructions Recorded Confirmed Last Taken Type albuterol sulfate 90 mcg/actuation 2 inh inhalation Q6H 02/23/21 12/03/21 02/22/21 History aerosol inhaler atorvastatin 40 mg tablet 40 mg PO DAILY #90 tabs 02/23/21 12/03/21 Unknown Rx buspirone 5 mg tablet 5 mg PO BID PRN Anxiety 02/23/21 12/03/21 Unknown History ipratropium 0.5 mg-albuterol 3 mg 3 ml inhalation Q4H PRN Shortness 02/23/21 12/03/21 Unknown Rx (2.5 mg base)/3 mL nebulization Of Breath #90 mL soln ipratropium 0.5 mg-albuterol 3 mg 3 ml inhalation Q6H.RESPIRATORY 02/23/21 12/03/21 Unknown Rx (2.5 mg base)/3 mL nebulization #90 mL soln lisinopril 2.5 mg tablet 2.5 mg PO DAILY #90 tabs 02/23/21 12/03/21 Unknown Rx glipizide 10 mg tablet 10 mg PO BID 08/20/21 12/03/21 Unknown History insulin aspart U-100 100 unit/mL 5 unit SUBCUT TID 08/20/21 12/03/21 Unknown History (3 mL) subcutaneous pen (Novolog FlexPen U-100 Insulin aspart) insulin detemir U-100 100 unit/mL 40 unit SUBCUT DAILY 08/20/21 12/03/21 Unknown History (3 mL) subcutaneous pen (Levemir FlexTouch U-100 Insulin) liraglutide 0.6 mg/0.1 mL (18 mg/3 1.8 mg (0.3 mL) SUBCUT DAILY #27 mL 08/20/21 12/03/21 Unknown Rx mL) subcutaneous pen injector (Victoza 2-Beni) venlafaxine 75 mg capsule,extended 75 mg PO DAILY #7 caps 10/09/21 12/03/21 Unknown Rx release 24 hr (Effexor XR) venlafaxine 150 mg 150 mg PO DAILY #30 caps 10/21/21 12/03/21 Unknown Rx capsule,extended release 24 hr (Effexor XR) Allergies Allergy/AdvReac Type Severity Reaction Status Date / Time codeine Allergy ADR-Nightma Verified 12/03/21 15:14 re Influenza Virus Vaccines Allergy ADR-Vomitin Verified 12/03/21 15:14 g Current Medications Generic Name Dose Route Start Last Admin Trade Name Freq PRN Reason Stop Dose Admin Atorvastatin Calcium 80 mg 10/10/22 21:00 10/10/22 20:48 Atorvastatin 40 Mg Tablet PO 80 mg BEDTIME HI Administration Sodium Chloride 1,000 mls @ 100 mls/hr 10/10/22 20:30 10/10/22 20:51 Sodium Chloride 0.9% IV 100 mls/hr .Q10H HI Administration Metoprolol Tartrate 50 mg 10/10/22 21:00 10/10/22 20:48 Metoprolol Tartrate 50 Mg Tablet PO 50 mg BID@0900,2100 HI Administration Ondansetron HCl 4 mg 10/10/22 21:23 10/10/22 21:37 Ondansetron 2 Mg/Ml Sdv 2 Ml IVP 4 mg Q4H PRN Administration NAUSEA AND VOMITING PFSH Acute PFSH: Medical History Anxiety COPD (chronic obstructive pulmonary disease) Diabetes mellitus, type II Currently diet controlled 3 para 3 Hiatal hernia History of COVID-19 (~04/2020) with some non respiratory persistent symptoms Hx of supraventricular tachycardia Surgical History History of colonoscopy (~2016) History of esophagogastroduodenoscopy (EGD) (~2016) History of tubal ligation Family History Father Cancer lung Mother Cancer lung Social History Smoking and tobacco status: current every day smoker cigarettes Alcohol intake: current Alcohol intake frequency: holidays/special occasions only Household members: spouse Marital status: Female Reproductive History: Date of last menstrual period: 02/19/21 Vitals/I&O/Wt Last Vital Signs Temp 98.4 F 10/10/22 17:25 Pulse 108 H 10/10/22 20:30 Resp 14 10/10/22 20:30 BP 162/102 10/10/22 20:30 Pulse Ox 92 10/10/22 20:30 O2 Del Method 10/10/22 19:27 O2 Flow Rate 4 10/10/22 19:27 Weight last 48 hrs Weight 83.007 kg Weight 85.729 kg Physical Exam Narrative: General: No acute distress, AO x3 HEENT: PERRLA, pupils bilaterally equal and reactive, pallors not present Chest: Normal vesicular breath sounds, no added sounds, equal good air entry bilaterally CVS: S1-S2 regular, no murmurs, no tachycardia, no gallops, no rubs Abdomen: Soft, nontender, no organomegaly, bowel sounds present Neuro: No focal deficits, no facial deformity, AO x3, power 5/5 in all limbs Data 10/10/22 16:10 10/10/22 16:10 A&P Assessment and plan (1) Diabetes: Blood sugar currently 389 normal anion gap start high dose insulin sliding scale + 20 units of LAntus daily Check Hb a1c (2) STEMI (ST elevation myocardial infarction): management per cardiology Consult Attestations Medical Necessity Statement: per admitting note Coding Level of Care Code Acute Code for [facility] Diagnoses Diabetes E11.9 STEMI (ST elevation myocardial infarction) I21.3
[2022-10-10 22:14] LABS: Glucose Point of Care 394 mg/dL (70-110)
--- NOTE | 2022-10-10 23:20 | PC.NURSE ---
Addendum entered by Nidia Palumbo RN 10/11/22 00:04: New order to give insulin now per high dose sliding scale. Original Note: Dr. Joiner updated on high BG. No new orders at this time.
--- NOTE | 2022-10-10 23:32 | ECG_ITS ---
[facility] Test Date: 2022-10-10 Pat Name: Chelsy Melendez Department: Room: Gender: Female Art Therapist: : 1975 Requested By: Rashawn Stroud Order Number: [id number] Dio MD: Lisset Meeks M.D. Measurements Intervals [place] Rate: 102 P: 42 VT: 148 QRS: -3 QRSD: 96 T: 64 QT: 348 QTc: 454 Interpretive Statements SINUS TACHYCARDIA POSSIBLE ANTERIOR MYOCARDIAL INFARCTION , OF INDETERMINATE AGE [30 ms Q WAVE IN V3/V4, OR R < 0.2 mV IN V4] ST ELEVATION, CONSIDER INFERIOR INJURY [MARKED ST ELEVATION W/O NORMALLY INFLECTED T-WAVE IN II/aVF] ACUTE VA Compared to ECG 10/10/2022 17:29:34 Myocardial infarct finding now present ST (T wave) deviation now present Left-axis deviation no longer present Early repolarization no longer present Electronically Signed On 10-10-2022 22:08:49 RIVET HEATER by Lisset Meeks M.D. [id number]
[2022-10-11] VITALS (97 sets, daily range): BP systolic 92–142; BP diastolic 59–100; PULSE 85–118; RESP 12–27; TEMP 36.6–37.1; O2SAT 90–98
[2022-10-11] MEDS: insulin lispro 100 unit/1 mL SUBCUT ×5 (00:16→20:15)
[2022-10-11 00:22] LABS: Glucose Point of Care 389 mg/dL (70-110)
[2022-10-11 05:21] LABS: Basophils # 0.1 10^3/uL (0.0-0.1); Basophils % 0.7 %; Eosinophils # 0.1 10^3/uL (0.0-0.8); Eosinophils % 0.8 %; Hemoglobin 11.7 g/dL (11.5-15.3); Lymphocytes # 2.2 10^3/uL (0.8-4.8); Lymphocytes % 17.9 %; Mean Corpuscular HGB Conc 31.6 g/dL (30.0-36.0); Mean Corpuscular Hemoglobin 28.3 pg (28.0-34.0); Mean Corpuscular Volume 89.4 fl (81-99); Mean Platelet Volume 11.4 fL (7.4-10.4); Monocytes # 0.9 10^3/uL (0.2-0.9); Monocytes % 7.3 %; Neutrophils # 8.74 10^3/uL (1.8-7.7); Nucleated Red Blood Cells % 0 %; Platelet Count 278 10^3/cmm (130-400); Red Blood Count 4.14 10^6/uL (4.1-5.3); Red Cell Distribution Width 14.8 % (12.1-15.1)
[2022-10-11 05:44] LABS: Anion Gap 13.8 (5-19); Blood Urea Nitrogen 9 mg/dL (6-20); Calcium 8.5 mg/dL (8.5-10.5); Carbon Dioxide 25 mmol/L (22-29); Chloride 101 mmol/L (98-107); Glomerular Filtration Rate 133.4 mL/min (90-130); Glucose 244 mg/dL (65-115); Osmolality Calculated 289 mOsm/kg (285-295); Potassium 3.8 mmol/L (3.5-5.1); Sodium 136 mmol/L (136-145)
[2022-10-11 05:52] LABS: Estmated Average Glucose 280; Hemoglobin A1C 11.4 % (4.0-6.0)
--- NOTE | 2022-10-11 06:00 | USCV_ITS ---
Chelsy Melendez Age: 47 Gender: F : 1975 Exam Date: 10/11/2022 12:38 Ordering Phys: Honorio Garcia M.D ([email or web address]) Technologist: PARUL Exam Location: [facility] [place] Indication: nstemi BP: 115 / 80 HR: 90 Rhythm: Sinus Technical Quality: Adequate MEASUREMENTS (Male / Female) Normal Values 2D ECHO LV Diastolic Diameter PLAX 4.6 cm 4.2 - 5.9 / 3.9 - 5.3 cm LV Systolic Diameter PLAX 3.1 cm IVS Diastolic Thickness 0.8 cm 0.6 - 1.0 / 0.6 - 0.9 cm IVS Systolic Thickness 0.9 cm LVPW Diastolic Thickness 0.6 cm 0.6 - 1.0 / 0.6 - 0.9 cm LVPW Systolic Thickness 1.0 cm LVOT Diameter 2.4 cm LV Ejection Fraction 2D Teich 61.0 % LV Ejection Fraction MOD 2C 60.1 % LV Ejection Fraction 2C AL 59.5 % LA Diameter 3.6 cm M-MODE Aortic Annulus Diameter 3.2 cm LA Ao Ratio MM 1.2 MV E Point Septal Separation 0.7 cm DOPPLER AV Peak Velocity 141.0 cm/s LVOT Peak Velocity 97.0 cm/s AV Area Cont Eq vti 3.4 cm squared AV Area Cont Eq pk 3.2 cm squared MV Area PHT 4.1 cm squared Mitral E to A Ratio 0.7 MV E' Velocity 44.0 cm/s Mitral E to MV E' Ratio 11.8 Mitral E to LV E' Lateral Ratio 11.8 Mitral E to LV E' Septal Ratio 11.8 TV Peak E Velocity 54.0 cm/s PV Peak Velocity 82.0 cm/s FINDINGS Left Ventricle Left ventricle is normal in size. LV systolic function is normal with EF 55 to 60%. Mild hypokinesis of inferoseptal and inferolateral morejon is seen. Grade 1 diastolic dysfunction Right Ventricle Normal in size and function Right Atrium Normal in size Left Atrium Normal in size Mitral Valve Structurally normal mitral valve. Aortic Valve Structurally normal aortic valve. No significant stenosis or regurgitation is seen Tricuspid Valve Trace tricuspid regurgitation. Insufficient TR jet to calculate RVSP Pulmonic Valve Not well visualized Pericardium Normal Aorta Normal in size IVC Not well visualized CONCLUSIONS LV systolic function is normal with EF of 55 to 60%. Mild hypokinesis of the inferoseptal and inferolateral morejon is seen. Grade 1 diastolic dysfunction Trace tricuspid regurgitation No comparison studies are available Honorio Garcia MD (Electronically Signed) Final Date: 12 October 2022 08:34 S
--- NOTE | 2022-10-11 07:47 | P.PN_ITS ---
Subjective Subjective: Patient is doing well. No chest pain. Had PCI of mid RCA with NORA x1. Vitals/I&O/Wt Last Vital Signs Temp 98.7 F 10/11/22 04:25 Pulse 102 H 10/11/22 07:00 Resp 16 10/11/22 07:00 BP 106/67 10/11/22 07:00 Pulse Ox 94 10/11/22 07:00 O2 Del Method 10/10/22 20:42 O2 Flow Rate 4 10/10/22 19:27 10/10/22 10/11/22 10/11/22 22:59 06:59 14:59 Intake Total 2349.15 / 2349.15 1715 / 4064.15 Output Total 500 / 500 1075 / 1575 Balance 1849.15 / 1849.15 640 / 2489.15 Weight last 48 hrs Weight 183 lb Weight 189 lb Physical Exam Narrative: GENERAL: Patient is alert, awake and oriented x3. [] NECK: No jugular vein distension. [] HEENT: No cyanosis. No icterus. No pallor. [] HEART: Regular S1 and S2. No murmur, rub or gallop. [] LUNGS: Clear to auscultate bilaterally. [] CENTRAL NERVOUS SYSTEM: Grossly nonfocal. [] EXTREMITIES: Lower extremities with 1+ edema bilaterally. Pulses palpable in the lower extremities, both dorsalis pedis and posterior tibial. [] Data 10/11/22 04:20 10/11/22 04:20 A&P Assessment and plan (1) STEMI (ST elevation myocardial infarction): (2) Diabetic neuropathy associated with type 2 diabetes mellitus: (3) Diabetes: (4) Hypertension: Plan Patient had presented with unstable anginal symptoms. Her initial EKG was not consistent with ST elevation [place]. Her chest pain had resolved with sublingual nitro was given by EMS. In the emergency room she again started having chest pain. Repeat EKG was consistent with acute inferior wall ST elevation [place]. She will be emergently taken to cardiac Director Talent Acquisition for emergent catheterization. Mid RCA had total thrombotic occlusion s/p PCI with NORA X1. Continue with aspirin and plavix ECHO is pending High intensity statin therapy Metoprolol 50mg BID We will consult hospitalist team for management of medical issues including diabetes. Attestations Medical Necessity Statement*: Care expected to cross 2 midnights. Patient had STEMI yesterday s/p PCI of RCA yesterday Coding Level of Care Code Acute Code for [facility] Diagnoses STEMI (ST elevation myocardial infarction) I21.3 Diabetic neuropathy associated with type 2 diabetes mellitus E11.40 Diabetes E11.9 Hypertension I10
[2022-10-11 08:07] LABS: Glucose Point of Care 276 mg/dL (70-110)
[2022-10-11] MEDS: aspirin 81 mg EC Tablet PO (08:13)
[2022-10-11] MEDS: clopidogrel 75 mg Tablet PO (08:13)
[2022-10-11] MEDS: metoprolol tartrate 50 mg Tablet PO ×2 (08:13→20:10)
[2022-10-11] MEDS: insulin glargine 100 units/1 mL 20 UNIT SUBCUT ×2 (08:15→18:30)
[2022-10-11 09:36] LABS: Glucose Point of Care 278 mg/dL (70-110)
--- NOTE | 2022-10-11 09:39 | ECG_ITS ---
[facility] Test Date: 2022-10-11 Pat Name: Chelsy Melendez Department: Room: ICU02 Gender: Female Creative Services Director: : 1975 Requested By: Honorio Garcia Order Number: [id number] Dio MD: Honorio Garcia M.D. Measurements Intervals [place] Rate: 93 P: 58 CO: 173 QRS: -65 QRSD: 99 T: -43 QT: 384 QTc: 480 Interpretive Statements SINUS RHYTHM ST ELEVATION CONSISTENT WITH INJURY, PERICARDITIS, OR EARLY REPOLARIZATION [ST ELEVATION W/O NORMALLY INFLECTED T-WAVE] ST DEVIATION AND MODERATE T-WAVE ABNORMALITY, CONSIDER LATERAL ISCHEMIA [-0.1+ mV T-WAVE IN I/aVL/V5/V6] ST DEVIATION AND MODERATE T-WAVE ABNORMALITY, CONSIDER INFERIOR ISCHEMIA [-0.1+ mV T-WAVE IN II/aVF] Compared to ECG 10/10/2022 23:38:25 Early repolarization now present T-wave abnormality now present Possible ischemia now present Sinus tachycardia no longer present Myocardial infarct finding no longer present ST (T wave) deviation still present Electronically Signed On 10-12-2022 11:23:59 SPOT WELDER by Honorio Garcia M.D. [id number]
--- NOTE | 2022-10-11 09:55 | PC.NURSE ---
Order for [address] units [address] clarified [address]. Drake. See [facility] for administration.
[2022-10-11 09:56] LABS: Iron 37 ug/dL (37-145); Percent Saturation 11.4 % (20-50); Total Iron Binding Capacity 323 mcg/dl; Unsaturated Iron Binding 286 ug/dL (112-347)
[2022-10-11] MEDS: ALPRAZolam 0.5 mg Tablet 0.25 MG PO ×2 (10:02→16:02)
[2022-10-11 10:04] LABS: Thyroid Stimulating Hormone 0.93 uIU/mL (0.27-4.20)
[2022-10-11 10:12] LABS: Folate Level 7.5 ng/mL (4.8-37.3); Vitamin B12 458 pg/mL (232-1245)
[2022-10-11 10:37] LABS: Troponin(5th) Baseline 1142 ng/L (0-10)
[2022-10-11 11:18] LABS: Glucose Point of Care 268 mg/dL (70-110)
--- NOTE | 2022-10-11 11:58 | ECG_ITS ---
[facility] Test Date: 2022-10-11 Pat Name: Chelsy Melendez Department: Room: ICU02 Gender: Female Hired Worker: : 1975 Requested By: Honorio Garcia Order Number: [id number] Dio MD: Honorio Garcia M.D. Measurements Intervals [place] Rate: 94 P: 52 NV: 167 QRS: -64 QRSD: 97 T: -36 QT: 390 QTc: 489 Interpretive Statements SINUS RHYTHM LEFT AXIS DEVIATION [QRS AXIS < -30] PATTERN CONSISTENT WITH PULMONARY DISEASE ST ELEVATION, CONSIDER INFERIOR INJURY [MARKED ST ELEVATION W/O NORMALLY INFLECTED T-WAVE IN II/aVF] ACUTE [place] Compared to ECG 10/11/2022 09:39:33 Myocardial infarct finding now present Early repolarization no longer present T-wave abnormality no longer present Possible ischemia no longer present ST (T wave) deviation still present Electronically Signed On 10-12-2022 11:34:13 LECTURER OF PORTUGUESE by Honorio Garcia M.D. [id number]
[2022-10-11 12:06] LABS: Troponin 5 2HR 1163 ng/L (0-10); Troponin 5 2HR Delta 21 ABS# (0-10)
--- NOTE | 2022-10-11 12:19 | PM.PN ---
Subjective Subjective: Seen in ICU today with family at bedside. Patient underwent emergent PCI to RCA yesterday for ST elevation MA. Hospitalist service was consulted for diabetes management. Patient states she takes detemir and NovoLog at home. NovoLog she takes as per sliding scale. Also states she usually checks her blood sugars at home which are usually running more than 200 but less than 250. Did complain of chest pain today morning for which EKG was done which was at baseline. Currently laying comfortably in bed without any further chest pain, nausea or vomiting. Able to tolerate diet well. Has remained hemodynamically stable and afebrile. Vitals/I&O/Wt Last Vital Signs Temp 97.8 F 10/11/22 10:15 Pulse 94 10/11/22 10:15 Resp 14 10/11/22 10:15 BP 114/78 10/11/22 10:15 Pulse Ox 95 10/11/22 10:15 O2 Del Method 10/11/22 10:15 O2 Flow Rate 4 10/10/22 19:27 10/10/22 10/11/22 10/11/22 22:59 06:59 14:59 Intake Total 2349.15 / 2349.15 1715 / 4064.15 120 / 120 Output Total 500 / 500 1075 / 1575 225 / 225 Balance 1849.15 / 1849.15 640 / 2489.15 -105 / -105 Weight last 48 hrs Weight 83.007 kg Weight 85.729 kg Physical Exam Narrative: General: No acute distress, AO x3 HEENT: PERRLA, pupils bilaterally equal and reactive, pallors not present Chest: Normal vesicular breath sounds, no added sounds, equal good air entry bilaterally CVS: S1-S2 regular, no murmurs, no tachycardia, no gallops, no rubs Abdomen: Soft, nontender, no organomegaly, bowel sounds present Neuro: No focal deficits, no facial deformity, AO x3, power 5/5 in all limbs Data 10/11/22 04:20 10/11/22 04:20 A&P Assessment and plan (1) Diabetes: A1c 11.4. Normal anion gap. Increase Lantus to 20 units twice daily. Continue with sliding scale high-dose protocol. Most likely will discharge patient on increased lantus dose with f/u director of restaurant. (2) STEMI (ST elevation myocardial infarction): As per cardiology. C/w ASA, plavix and statin. Started on beta harpreet Plan Transfer out of ICU to CSU when appropriate as per primary team. Thank you discussed in detail with patient, patient's RN and primary team. Thank you for involving us in care of Ms. Melendez. Attestations Medical Necessity Statement*: Requires further hospitalization for post ST elevation care with emergent PCI, uncontrolled diabetes mellitus Time Spent in Patient Care: Greater than 35 minutes Coding Level of Care Code Acute Code for [facility] Diagnoses Diabetes E11.9 STEMI (ST elevation myocardial infarction) I21.3
[2022-10-11] MEDS: ondansetron 2 mg/ML SDV 2 mL 4 MG IVP (15:25)
--- NOTE | 2022-10-11 15:58 | ECG_ITS ---
[facility] Test Date: 2022-10-11 Pat Name: Chelsy Melendez Department: Room: ICU02 Gender: Female Coater Carbon Paper: : 1975 Requested By: Honorio Garcia Order Number: [id number] Dio MD: Honorio Garcia M.D. Measurements Intervals [place] Rate: 94 P: 58 IL: 150 QRS: -68 QRSD: 101 T: -49 QT: 395 QTc: 495 Interpretive Statements SINUS RHYTHM LEFT AXIS DEVIATION [QRS AXIS < -30] PATTERN CONSISTENT WITH PULMONARY DISEASE ST ELEVATION, CONSIDER INFERIOR INJURY [MARKED ST ELEVATION W/O NORMALLY INFLECTED T-WAVE IN II/aVF] ACUTE [place] Compared to ECG 10/11/2022 11:50:32 No significant changes Electronically Signed On 10-12-2022 11:33:23 CONTINUOUS CRUSHER OPERATOR by Honorio Garcia M.D. [id number]
[2022-10-11 16:30] LABS: Troponin 5 6HR 963.1 ng/L (0-10)
[2022-10-11 17:44] LABS: Glucose Point of Care 304 mg/dL (70-110)
[2022-10-11 18:25] LABS: Bilirubin Urine 1+ (Negative); Glucose Urine UA 4+ (Normal); Ketones Urine 1+ (Negative); Leukocyte Esterase Urine 2+ (Negative); Urine Appearance SL Hazy (CLEAR); Urine Color Yellow (Yellow); pH Urine 5 (5-7)
[2022-10-11 18:26] LABS: Add Urine Microscopic? YES; Blood Urine Trace (Negative); Nitrate Urine Negative (Negative); Protein Urine Neg (Negative); Urobilinogen Urine Neg (Negative)
[2022-10-11 18:43] LABS: Bacteria Urine 1+ /hpf; Mucus Urine 1+ /hpf; RBC Urine 0-4 /hpf (0-2); Squamous Epithelial Cell Urine 25-40 /hpf (0-5); WBC Urine 15-25 /hpf (0-5)
[2022-10-11 18:44] LABS: Add Urine Culture? No
--- NOTE | 2022-10-11 18:45 | PC.NURSE ---
At approximately 0930 patient stated, I feel funny I don't know what it is maybe low blood sugar, but I feel weird. Glucose taken, see lab work for result. Dr. Garcia notified and EKG obtained, results in chart. At approximately 1600, patient reported nausea and 4mg zofran given, see MAR, nausea resolved. Patient denies chest pain, back pain, or arm pain for entirety of shift. Patient does report occasional discomfort in arm and chest prior to morning EKG, 2 on 0-10 pain scale. Patient ambulated unit with assistance of S/O. No cardiac changes noted. Otherwise uneventful shift. Patient currently resting in bed.
[2022-10-11 19:28] LABS: Glucose Point of Care 321 mg/dL (70-110)
[2022-10-11] MEDS: temazepam 15 mg Capsule PO (20:10)
[2022-10-11] MEDS: acetaminophen 325 mg Tablet 650 MG PO (20:10)
[2022-10-11] MEDS: atorvastatin 40 mg Tablet 80 MG PO (20:10)
[2022-10-12] VITALS (14 sets, daily range): BP systolic 88–143; BP diastolic 63–88; PULSE 85–106; RESP 13–34; TEMP 36.4–37.3; O2SAT 94–97
[2022-10-12 05:36] LABS: Basophils # 0.1 10^3/uL (0.0-0.1); Basophils % 0.6 %; Eosinophils # 0.2 10^3/uL (0.0-0.8); Eosinophils % 1.9 %; Hemoglobin 12.5 g/dL (11.5-15.3); Lymphocytes # 2.4 10^3/uL (0.8-4.8); Lymphocytes % 23.8 %; Mean Corpuscular HGB Conc 32.1 g/dL (30.0-36.0); Mean Corpuscular Hemoglobin 28.7 pg (28.0-34.0); Mean Corpuscular Volume 89.7 fl (81-99); Mean Platelet Volume 11.4 fL (7.4-10.4); Monocytes # 0.7 10^3/uL (0.2-0.9); Monocytes % 7.2 %; Nucleated Red Blood Cells % 0 %; Platelet Count 264 10^3/cmm (130-400); Red Blood Count 4.35 10^6/uL (4.1-5.3); Red Cell Distribution Width 14.8 % (12.1-15.1); White Blood Count 10.2 10^3/uL (4.0-10.0)
[2022-10-12 05:58] LABS: Alanine Aminotransferase 21 U/L (0-33); Albumin Level 3.4 g/dL (3.5-5.2); Alkaline Phosphatase 132 U/L (35-105); Anion Gap 13.9 (5-19); Aspartate Amino Transferase 41 U/L (0-32); Blood Urea Nitrogen 13 mg/dL (6-20); Calcium 8.9 mg/dL (8.5-10.5); Carbon Dioxide 26 mmol/L (22-29); Chloride 99 mmol/L (98-107); Globulin 3.1 g/dL (1.3-4.6); Glomerular Filtration Rate 133.4 mL/min (90-130); Glucose 264 mg/dL (65-115); Osmolality Calculated 289 mOsm/kg (285-295); Potassium 3.9 mmol/L (3.5-5.1); Sodium 135 mmol/L (136-145); Total Bilirubin 0.4 mg/dL (0.15-1.2); Total Protein 6.5 g/dL (6.6-8.7)
[2022-10-12 08:07] LABS: Glucose Point of Care 315 mg/dL (70-110)
[2022-10-12] MEDS: insulin lispro 100 unit/1 mL SUBCUT (08:07)
--- NOTE | 2022-10-12 08:38 | P.DS_ITS ---
Discharge Providers Date of Admission: 10/10/22 20:26 Date of Discharge: October 12, 2022 Attending Provider at Admission: Honorio Garcia M.D Attending Provider at Discharge: Honorio Garcia M.D Primary Care Provider: Karo Brooks APN Diagnoses at Discharge Discharge Diagnosis (1) Diabetes: Status: Acute (2) STEMI (ST elevation myocardial infarction): Status: Inactive Reason for Visit Reason for Visit: Chest pain Brief History: 47 year old female with past medical history of diabetes, hypertension, hyperlipidemia who was seen in the emergency room 3 days back with chest pain symptoms.? ACS was ruled out and she was discharged home.? She has presented again with ongoing chest pain.? It is substernal.? She says it was severe.? After getting nitroglycerin her chest pain resolved.? EKG was not consistent with ST elevation [place].? While in the ER she started having chest pain episodes again and repeat EKG was consistent with inferior wall ST elevation [place] with reciprocal changes in lateral leads.? Cardiac Land Development Manager was emergently activated and patient brought to the Land Development Manager for emergent coronary angiogram. Hospital Course Hospital Course Patient's coronary angiogram showed total thrombotic occlusion of mid RCA which underwent successful revascularization with NORA x1. Her blood glucose levels were uncontrolled. Medicine team was consulted to help with medical management and diabetes medications. Appreciate recommendations. Patient will follow with endocrinology as outpatient. During hospitalization she had an episode of feeling sweaty. No chest pain. Troponins were repeated which were not trending up. Echo showed normal LV systolic function. She was discharged home in stable condition. Physical Exam Narrative: GENERAL: Patient is alert, awake and oriented x3. [] NECK: No jugular vein distension. [] HEENT: No cyanosis. No icterus. No pallor. [] HEART: Regular S1 and S2. No murmur, rub or gallop. [] LUNGS: Clear to auscultate bilaterally. [] CENTRAL NERVOUS SYSTEM: Grossly nonfocal. [] EXTREMITIES: Lower extremities with 1+ edema bilaterally. Pulses palpable in the lower extremities, both dorsalis pedis and posterior tibial. [] Discharge Data Studies Completed and Pending Completed Studies During Hospitalization Category Date Time Status XR chest 1V portable [id number] Stat Exams 10/10/22 17:32 Completed CV. echo complete* [id number] Routine Ultrasound 10/11/22 06:00 Completed Pending at discharge Category Date Time Status PRINTING FILM STRIPPER request for service Routine Exams 10/10/22 19:33 Ordered Complete Blood Count w/Auto AM LABS Lab 10/13/22 04:00 Ordered Radiology Impressions Chest X-Ray 10/10/22 17:32 IMPRESSION: 1. No acute abnormality demonstrated. 2. There is no interval change from the prior examination. Laboratory Results WBC 10.2 10^3/uL (4.0-10.0) H 10/12/22 03:34 RBC 4.35 10^6/uL (4.1-5.3) 10/12/22 03:34 Hgb 12.5 g/dL (11.5-15.3) 10/12/22 03:34 Hct 39.0 % (37.0-47.0) 10/12/22 03:34 MCV 89.7 fl (81-99) 10/12/22 03:34 MCH 28.7 pg (28.0-34.0) 10/12/22 03:34 MCHC 32.1 g/dL (30.0-36.0) 10/12/22 03:34 RDW 14.8 % (12.1-15.1) 10/12/22 03:34 Plt Count 264 10^3/cmm (130-400) 10/12/22 03:34 MPV 11.4 fL (7.4-10.4) H 10/12/22 03:34 Neut % (Auto) 66.0 % 10/12/22 03:34 Lymph % (Auto) 23.8 % 10/12/22 03:34 [place] % (Auto) 7.2 % 10/12/22 03:34 Eos % (Auto) 1.9 % 10/12/22 03:34 Baso % (Auto) 0.6 % 10/12/22 03:34 Neut # (Auto) 6.70 10^3/uL (1.8-7.7) 10/12/22 03:34 Lymph # (Auto) 2.4 10^3/uL (0.8-4.8) 10/12/22 03:34 [place] # (Auto) 0.7 10^3/uL (0.2-0.9) 10/12/22 03:34 Eos # (Auto) 0.2 10^3/uL (0.0-0.8) 10/12/22 03:34 Baso # (Auto) 0.1 10^3/uL (0.0-0.1) 10/12/22 03:34 Nucleated RBC % (auto) 0 % 10/12/22 03:34 Nucleated RBCs # 0.0 /100WBC 10/12/22 03:34 Sodium 135 mmol/L (136-145) L 10/12/22 03:34 Potassium 3.9 mmol/L (3.5-5.1) 10/12/22 03:34 Chloride 99 mmol/L (98-107) 10/12/22 03:34 Carbon Dioxide 26 mmol/L (22-29) 10/12/22 03:34 Anion Gap 13.9 (5-19) 10/12/22 03:34 BUN 13 mg/dL (6-20) 10/12/22 03:34 Creatinine 0.5 mg/dL (0.5-0.9) 10/12/22 03:34 GFR Calculation 133.4 mL/min (90-130) H 10/12/22 03:34 Glucose 264 mg/dL (65-115) H 10/12/22 03:34 POC Glucose 315 mg/dL (70-110) H 10/12/22 07:51 Estimat Average Glucose 280 10/11/22 04:20 Hemoglobin A1c 11.4 % (4.0-6.0) H 10/11/22 04:20 Calculated Osmolality 289 mOsm/kg (285-295) 10/12/22 03:34 Calcium 8.9 mg/dL (8.5-10.5) 10/12/22 03:34 Iron 37 ug/dL (37-145) 10/11/22 09:24 TIBC 323 mcg/dl 10/11/22 09:24 % Saturation 11.4 % (20-50) L 10/11/22 09:24 Unsat Iron Binding 286 ug/dL (112-347) 10/11/22 09:24 Total Bilirubin 0.4 mg/dL (0.15-1.2) 10/12/22 03:34 AST 41 U/L (0-32) H 10/12/22 03:34 ALT 21 U/L (0-33) 10/12/22 03:34 Alkaline Phosphatase 132 U/L (35-105) H 10/12/22 03:34 Troponin T Baseline 1142 ng/L (0-10) H* 10/11/22 09:24 Troponin T 120 Minute 1163 ng/L (0-10) H 10/11/22 11:24 Delta Troponin T 21 ABS# (0-10) H* 10/11/22 11:24 Troponin T Hi Sens 6Hr 963.1 ng/L (0-10) H 10/11/22 15:53 Troponin T Hi Sens 6Hr Delta -178.9 ng/L (0-12) L 10/11/22 15:53 NT-Pro-B Natriuret Pep 69 pg/mL (0-125) 10/10/22 16:10 Total Protein 6.5 g/dL (6.6-8.7) L 10/12/22 03:34 Albumin 3.4 g/dL (3.5-5.2) L 10/12/22 03:34 Globulin 3.1 g/dL (1.3-4.6) 10/12/22 03:34 Lipase 20 U/L (13-60) 10/10/22 16:10 Vitamin B12 458 pg/mL (232-1245) 10/11/22 09:24 Folate 7.5 ng/mL (4.8-37.3) 10/11/22 09:24 TSH 0.93 uIU/mL (0.27-4.20) 10/11/22 09:24 Urine Color Yellow (Yellow) 10/11/22 Unknown Urine Appearance Sl hazy (CLEAR) A 10/11/22 Unknown Urine pH 5 (5-7) 10/11/22 Unknown Ur Specific [place] 1.020 (1.005-1.030) 10/11/22 Unknown Urine Protein Neg (Negative) 10/11/22 Unknown Urine Glucose (UA) 4+ (Normal) H 10/11/22 Unknown Urine Ketones 1+ (Negative) H 10/11/22 Unknown Urine Blood Trace (Negative) H 10/11/22 Unknown Urine Nitrate Negative (Negative) 10/11/22 Unknown Urine Bilirubin 1+ (Negative) H 10/11/22 Unknown Urine Urobilinogen Neg mg/dL (Negative) 10/11/22 Unknown Ur Leukocyte Esterase 2+ (Negative) H 10/11/22 Unknown Urine RBC 0-4 /hpf (0-2) H 10/11/22 Unknown Urine WBC 15-25 /hpf (0-5) H 10/11/22 Unknown Ur Squamous Epith Cells 25-40 /hpf (0-5) H 10/11/22 Unknown Amorphous Sediment Not Reportable 10/11/22 Unknown Urine Bacteria 1+ /hpf (NONE) H 10/11/22 Unknown Urine Mucus 1+ /hpf 10/11/22 Unknown Vitals Last Vital Signs Temp 97.6 F 10/12/22 08:00 Pulse 102 H 10/12/22 08:00 Resp 34 H 10/12/22 08:00 BP 110/68 10/12/22 08:00 Pulse Ox 96 10/12/22 08:00 O2 Del Method 10/12/22 08:00 O2 Flow Rate 4 10/10/22 19:27 Discharge Plan Discharge Patient Disposition: Home Condition: Stable Prescriptions: New atorvastatin 40 mg Tablet 80 mg PO BEDTIME Qty: 120 3RF clopidogrel 75 mg Tablet 75 mg PO DAILY Qty: 90 3RF aspirin 81 mg Tablet,Delayed Release (Dr/Ec) 81 mg PO DAILY Qty: 90 3RF metoprolol tartrate 50 mg Tablet 50 mg PO BID@0900,2100 Qty: 120 3RF Continued venlafaxine [Effexor XR] 75 mg capsule,extended release 24hr 75 mg PO DAILY Qty: 7 0RF Rx Instructions: take 75mg for 7 days then increase to 150mg buspirone 5 mg tablet 5 mg PO BID PRN (Reason: Anxiety) albuterol sulfate 90 mcg/actuation HFA aerosol inhaler 2 inh INHALATION Q6H PRN (Reason: Shortness Of Breath) ipratropium-albuterol 0.5 mg-3 mg(2.5 mg base)/3 mL Solution For Nebulization 3 ml inhalation Q4H PRN (Reason: Shortness Of Breath) Qty: 90 3RF lisinopril 2.5 mg tablet 2.5 mg PO DAILY Qty: 90 0RF pantoprazole 40 mg Tablet,Delayed Release (Dr/Ec) 40 mg PO DAILY Changed Novolog FlexPen U-100 Insulin 100 unit/mL (3 mL) insulin pen See Protocol SUBCUT TID Qty: 15 0RF Protocol: Insulin Corrective High-Dose Regimen Condition: Fingerstick Blood Glucose Dose/Route: Insulin Units Condition: 141-180 mg/dl Dose/Route: 6 units/SQ Condition: 181-220 mg/dl Dose/Route: 8 units/SQ Condition: 221-260 mg/dl Dose/Route: 10 units/SQ Condition: 261-300 mg/dl Dose/Route: 12 units/SQ Condition: 301-350 mg/dl Dose/Route: 14 units/SQ Condition: 351-400 mg/dl Dose/Route: 16 units/SQ Condition: greater than 400 mg/dl Dose/Route: 18 units/SQ Protocol Text: 141-180 --6 units/SQ 181-220 --8 units/SQ 221-260 --10 units/SQ 261-300--12 units/SQ 301-350 --14 units/SQ 351-400 --16 units/SQ greater than 400 --18 units/SQ Levemir FlexTouch U-100 Insuln 100 unit/mL (3 mL) insulin pen 40 unit SUBCUT BID Qty: 15 0RF Discharge Orders: Discharge Order (Routine); Ordered 10/12/22 Ordered By: Honorio Garcia Referrals: Karo Brooks APN [Primary Care Provider] - Honorio Garcia M.D [Physician] - 2 months Julieth Bryant FNP [Nurse Practitioner] - 7-10 days Sherman Ramirez MD [Physician] - 2 weeks Discharge Diet: Diabetic Discharge Activity: Increase activity as tolerated Patient Instructions: Metoprolol (By mouth), Aspirin (By mouth), Atorvastatin (By mouth), Clopidogrel (By mouth), Heart Attack (DC), Heart Healthy Diet (DC), Opioid Safety Activity Restrictions/Additional Instructions: Please check your blood sugar daily and maintain a blood sugar diary. Follow-up with a primary care provider within next 1 week. You should see an order management specialist within next few weeks on a possibility of insulin pump as an outpatient. Dose of detemir has been increased to 40 units twice daily. NovoLog has been changed to insulin sliding scale. Insulin sliding scale has been provided to you. If blood sugars are higher than 140 she should increase her long-acting insulin by 3 units both morning and evening till blood sugars are below target. If blood sugars are less than 100 she should decrease the rate by 3 units. She should follow-up with an order management specialist at the earliest for a possibility of an insulin pump. Discharge Attestations Time Spent in Discharge Care*: greater than 30 min Quality Metrics Clinical Quality Measures [ Acute Myocardial Infaction { Clinical Trial Participant: No; Contraindication to aspirin: None; Aspirin prescribed; Contraindication to statin: None; Statin prescribed; Contraindication to PCI: None; PCI performed;}] Coding Level of Care Code Acute [facility] note Diagnoses Diabetes E11.9 STEMI (ST elevation myocardial infarction) I21.3
[2022-10-12] MEDS: insulin glargine 100 units/1 mL 20 UNIT SUBCUT (09:00)
[2022-10-12] MEDS: clopidogrel 75 mg Tablet PO (09:00)
[2022-10-12] MEDS: aspirin 81 mg EC Tablet PO (09:00)
[2022-10-12] MEDS: metoprolol tartrate 50 mg Tablet PO (09:00)
--- NOTE | 2022-10-12 10:00 | PM.PN ---
Subjective Subjective: No acute events overnight. Patient has remained hemodynamically stable and afebrile. Denies any nausea vomiting, headache. Plan for discharge as per primary team. Blood sugars elevated to be over 200. Vitals/I&O/Wt Last Vital Signs Temp 97.6 F 10/12/22 08:00 Pulse 102 H 10/12/22 08:00 Resp 34 H 10/12/22 08:00 BP 110/68 10/12/22 08:00 Pulse Ox 96 10/12/22 08:00 O2 Del Method 10/12/22 08:00 O2 Flow Rate 4 10/10/22 19:27 10/11/22 10/12/22 10/12/22 22:59 06:59 14:59 Intake Total 490 / 850 500 / 1350 Output Total 1650 / 1875 300 / 2175 425 / 425 Balance -1160 / -1025 200 / -825 -425 / -425 Weight last 48 hrs Weight 83.007 kg Weight 85.729 kg Physical Exam Narrative: General: No acute distress, AO x3 HEENT: PERRLA, pupils bilaterally equal and reactive, pallors not present Chest: Normal vesicular breath sounds, no added sounds, equal good air entry bilaterally CVS: S1-S2 regular, no murmurs, no tachycardia, no gallops, no rubs Abdomen: Soft, nontender, no organomegaly, bowel sounds present Neuro: No focal deficits, no facial deformity, AO x3, power 5/5 in all limbs Data 10/12/22 03:34 10/12/22 03:34 A&P Assessment and plan (1) Diabetes: A1c 11.4. Normal anion gap. Increase Lantus to 20 units twice daily. Continue with sliding scale high-dose protocol. Most likely will discharge patient on increased lantus dose with f/u principal mechanical engineer. (2) STEMI (ST elevation myocardial infarction): As per cardiology. C/w ASA, plavix and statin. Started on beta harpreet Plan On discharge patient should go on long-acting insulin 40 units twice daily with insulin sliding scale at aggressive protocol. We will plan the aggressive protocol for the patient. Patient should check her blood sugars daily especially the fasting blood with target of less than 140. If blood sugars are higher than 140 she should increase her long-acting insulin by 3 units both morning and evening till blood sugars are below target. If blood sugars are less than 100 she should decrease the rate by 3 units. She should follow-up with an principal mechanical engineer at the earliest for a possibility of an insulin pump. Care was discussed in detail with the patient and she verbalized understanding. Transfer out of ICU to CSU when appropriate as per primary team. Thank you discussed in detail with patient, patient's RN and primary team. Thank you for involving us in care of Ms. Melendez. Attestations Medical Necessity Statement*: As per primary team Time Spent in Patient Care: Greater than 35 minutes Coding Level of Care Code Acute Code for Chg Fwd Diagnoses Diabetes E11.9 STEMI (ST elevation myocardial infarction) I21.3
--- NOTE | 2022-10-12 10:27 | PC.NURSE ---
Dr. Garcia notified of patients symptoms upon standing and performing self hygiene care. Patient reports feeling dizzy, nauseous,and sweaty. No significant change in blood pressure or heart rate noted at time of symptoms. Symptoms resolved after brief rest.
--- NOTE | 2022-10-12 11:27 | PC.NURSE ---
Patient and spouse at bedside provided with extensive education regarding follow up appointments, medications and side effects, post cardiac cath care at home, diet and exercise, S/S of heart attack, and smoking cessation. Patient and family had no questions. IV catheter removed, no complications. Patient transported to personal vehicle via wheelchair with SO as primary roll off driver.
== END 2022-10-12 11:26 | disposition home or self-care (01) | DRG 247 ==
LOC: ER 19:23 → CCL 19:24 → ICU 20:27
PROVIDERS: Student in an Organized Health Care Education/Training Program; Admitting Provider Internal Medicine; Emergency Provider Family Medicine; PCP Nurse Practitioner Family; Visit Provider Internal Medicine
PROC: 027034Z Dilation of Coronary Artery, One Artery with Drug-eluting Intraluminal Device, Percutaneous Approach (ICD-10-PCS; principal; 2022-10-10 19:45)
PROC: 027034Z Dilation of Coronary Artery, One Artery with Drug-eluting Intraluminal Device, Percutaneous Approach (ICD-10-PCS; 2022-10-10 19:45)
DX: I21.11 ST elevation (STEMI) myocardial infarction involving right coronary artery (principal); I25.110 Atherosclerotic heart disease of native coronary artery with unstable angina pectoris; E11.65 Type 2 diabetes mellitus with hyperglycemia; E11.40 Type 2 diabetes mellitus with diabetic neuropathy, unspecified; I10 Essential (primary) hypertension; E78.5 Hyperlipidemia, unspecified; Z88.5 Allergy status to narcotic agent; Z88.7 Allergy status to serum and vaccine; F41.9 Anxiety disorder, unspecified; J44.9 Chronic obstructive pulmonary disease, unspecified; Z86.16 Personal history of COVID-19; F17.210 Nicotine dependence, cigarettes, uncomplicated; Z79.51 Long term (current) use of inhaled steroids; Z79.4 Long term (current) use of insulin
CPT/HCPCS: 36415; 36416; 71045; 80048; 80053; 81001; 82607; 82746; 82962; 83036; 83540; 83550; 83690; 83880; 84443; 84484; 85025; 85347; 93005; 93306; 93454; 96361; 96372; 96374; 99152; 99153; 99285; C1725; C1760; C1769; C1874; C1887; C1894; C9600; G0269; J0461; J1644; J1815; J2250; J2405; J3010; J3490; J7030; J7040; Q9967

== ENCOUNTER 2022-10-15 18:21 | Observation (INO) | payer BC, SELFPAY ==
[2022-10-15] VITALS (15 sets, daily range): BP systolic 95–185; BP diastolic 61–114; PULSE 82–103; RESP 12–26; TEMP 36.5–37.1; O2SAT 94–99; BMI 27.2
--- NOTE | 2022-10-15 18:23 | XRR_ITS ---
PROCEDURE INFORMATION: Exam: XR Chest Exam date and time: 10/15/2022 6:38 PM Age: 47 years old Clinical indication: Pain; Chest pressure; Prior surgery; Surgery date: 3-7 days post-operative; Surgery type: Had stent put in last Thursday; Additional info: Cp TECHNIQUE: Imaging protocol: Radiologic exam of the chest. Views: 1 view. COMPARISON: CR XR chest 1V portable [id number] 10/10/2022 5:41 PM FINDINGS: Lungs: Minor linear atelectasis at the right mid lung. No consolidation. Pleural spaces: Unremarkable. No pleural effusion. No pneumothorax. Heart/Mediastinum: Unremarkable. No cardiomegaly. Bones/joints: Unremarkable. XR/XR chest 1V portable [id number] IMPRESSION: Minor linear atelectasis at the right mid lung. Otherwise, no acute findings.
--- NOTE | 2022-10-15 18:28 | ECG_ITS ---
[facility] Test Date: 2022-10-15 Pat Name: Chelsy Melendez Department: Room: Gender: Female Guest Service Aide: : 1975 Requested By: Ami Haddad Order Number: [id number] Dio MD: Honorio Garcia M.D. Measurements Intervals [place] Rate: 94 P: 38 PA: 169 QRS: -70 QRSD: 97 T: 24 QT: 350 QTc: 438 Interpretive Statements SINUS RHYTHM POSSIBLE LEFT ATRIAL ENLARGEMENT [-0.1mV P-WAVE IN V1/V2] LEFT AXIS DEVIATION [QRS AXIS < -30] POSSIBLE ANTERIOR MYOCARDIAL INFARCTION , OF INDETERMINATE AGE [30 ms Q WAVE IN V3/V4, OR R < 0.2 mV IN V4] MARKED ST ELEVATION, CONSIDER INFERIOR INJURY [MARKED ST ELEVATION W/O NORMALLY INFLECTED T-WAVE IN II/aVF] ACUTE MD Compared to ECG 10/11/2022 17:09:36 No significant changes Electronically Signed On 10-16-2022 8:07:58 AMMUNITION ASSEMBLY I LABORER by Honorio Garcia M.D. [id number]
[2022-10-15] MEDS: clopidogrel 300 mg Tablet 600 MG PO (18:38)
--- NOTE | 2022-10-15 18:39 | W.ED.CHESTPA ---
HPI - Chest Pain General: Chief Complaint: Chest Pain Stated Complaint: CP, arm pain Time Seen by Provider: 10/15/22 18:23 Source: patient Mode of arrival: ambulatory Limitations: no limitations History of Present Illness: 47-year-old female who recently had an MRI 4 days ago that required a stent in her RCA patient states that she been doing well at home and started having pain again 2 hours ago in the center of her chest. States has been a pressure type pain she rates it a 6 out of 10. She denies any vomiting has had some nausea denies any shortness of breath denies any worsening proving factors. Associated symptoms: Deny abdominal pain, dyspnea, fever(s), nausea or vomiting Review of Systems Const: Denies: fever(s), chills, body aches or change in appetite Eyes: Denies: blurry vision or eye discomfort ENMT: Denies: throat pain or dental pain Card: Reports: chest pain Resp: Denies: dyspnea GI: Denies: abdominal pain, nausea, vomiting or diarrhea : Denies: dysuria Musc: Denies: neck pain or back pain Skin/Breast: Denies: rash Neuro: Denies: headache(s) Psych: Denies: depression Ezequiel/Lymph: Denies: easy bruising All/Imm: Denies: urticaria PFSH ED PFSH: Medical History Anxiety COPD (chronic obstructive pulmonary disease) Diabetes mellitus, type II Currently diet controlled 3 para 3 Hiatal hernia History of COVID-19 (~04/2020) with some non respiratory persistent symptoms Hx of supraventricular tachycardia STEMI (ST elevation myocardial infarction) Surgical History History of colonoscopy (~2017) History of esophagogastroduodenoscopy (EGD) (~2017) History of tubal ligation Family History Father Cancer lung Mother Cancer lung Social History Smoking and tobacco status: current every day smoker cigarettes Alcohol intake: current Alcohol intake frequency: holidays/special occasions only Household members: spouse Marital status: Female Reproductive History: Date of last menstrual period: 02/19/21 Physical Exam Const: COMMON NORMALS: patient oriented x3 HENMT: COMMON NORMALS: normocephalic and atraumatic HEAD & SCALP: normocephalic and atraumatic Eye: COMMON NORMALS: Equal, round and reactive pupils present and EOMs intact bilaterally PUPIL: Yes Equal, round and reactive pupils present Neck/C-Spine: COMMON NORMALS: full ROM and supple Chest: COMMONS NORMALS: normal inspection of the chest and normal palpation of entire chest wall Resp: COMMON NORMALS: normal respiratory effort, No retractions, No use of accessory muscles and clear to auscultation bilaterally AUSCULTATION: clear to auscultation bilaterally Cardio: COMMON NORMALS: regular rate, regular rhythm and No murmurs present (Cardio) RATE: regular rate RHYTHM: regular rhythm GI: COMMON NORMALS: Normal to inspection, nondistended, normoactive bowel sounds present, Soft to palpation, non-tender and no masses PALPATION: Yes Soft to palpation Extremity: COMMON NORMALS: normal to inspection and full ROM Neuro: COMMON NORMALS: patient oriented x3, moves all extremities and no focal motor deficits Psych: COMMON NORMALS: mental status grossly normal, Normal thought process present and cooperative THOUGHT PROCESS: Normal thought process present Skin: COMMON NORMALS: no rashes or lesions noted and no wounds GENERAL SKIN EXAM: no rashes or lesions noted Course Vital Signs: Vital signs: Vital Signs Temperature 98.6 F 10/15/22 18:26 Pulse Rate 97 10/15/22 18:55 Respiratory Rate 25 H 10/15/22 18:55 Blood Pressure 122/73 10/15/22 18:55 Pulse Oximetry 96 10/15/22 18:55 Oxygen Delivery Me thod 10/15/22 18:26 MDM - Chest Pain Medical Decision Making Patient presents with chest pain EKG here does show ST elevations inferiorly and she did had a recent stent placement 4 days ago I spoke to wireless cellular technician activated Bread Stacker patient went to the Bread Stacker for STEMI patient was given heparin and Plavix here. Lab Data 10/15/22 18:37 10/15/22 18:37 Radiology Impressions Chest X-Ray 10/15/22 18:23 IMPRESSION: Minor linear atelectasis at the right mid lung. Otherwise, no acute findings. Laboratory Results WBC 13.8 10^3/uL (4.0-10.0) H 10/15/22 18:37 RBC 4.23 10^6/uL (4.1-5.3) 10/15/22 18:37 Hgb 12.0 g/dL (11.5-15.3) 10/15/22 18:37 Hct 38.4 % (37.0-47.0) 10/15/22 18:37 MCV 90.8 fl (81-99) 10/15/22 18:37 MCH 28.4 pg (28.0-34.0) 10/15/22 18:37 MCHC 31.3 g/dL (30.0-36.0) 10/15/22 18: RDW 14.7 % (12.1-15.1) 10/15/22 18: Plt Count 333 10^3/cmm (130-400) 10/15/22 18: MPV 11.1 fL (7.4-10.4) H 10/15/22 18:37 Neut % (Auto) 65.4 % 10/15/22 18:37 Lymph % (Auto) 24.7 % 10/15/22 18:37 [place] % (Auto) 5.5 % 10/15/22 18:37 Eos % (Auto) 3.3 % 10/15/22 18:37 Baso % (Auto) 0.7 % 10/15/22 18:37 Neut # (Auto) 9.05 10^3/uL (1.8-7.7) H 10/15/22 18:37 Lymph # (Auto) 3.4 10^3/uL (0.8-4.8) 10/15/22 18:37 [place] # (Auto) 0.8 10^3/uL (0.2-0.9) 10/15/22 18:37 Eos # (Auto) 0.5 10^3/uL (0.0-0.8) 10/15/22 18:37 Baso # (Auto) 0.1 10^3/uL (0.0-0.1) 10/15/22 18:37 Nucleated RBC % (auto) 0 % 10/15/22 18: Nucleated RBCs # 0.0 /100WBC 10/15/22 18:37 Sodium 138 mmol/L (136-145) 10/15/22 18:37 Potassium 3.6 mmol/L (3.5-5.1) 10/15/22 18:37 Chloride 100 mmol/L (98-107) 10/15/22 18:37 Carbon Dioxide 24 mmol/L (22-29) 10/15/22 18:37 Anion Gap 17.6 (5-19) 10/15/22 18:37 BUN 11 mg/dL (6-20) 10/15/22 18:37 Creatinine 0.7 mg/dL (0.5-0.9) 10/15/22 18:37 GFR Calculation 90.5 mL/min (90-130) 10/15/22 18:37 Glucose 206 mg/dL (65-115) H 10/15/22 18:37 Calculated Osmolality 291 mOsm/kg (285-295) 10/15/22 18:37 Calcium 9.0 mg/dL (8.5-10.5) 10/15/22 18:37 Total Bilirubin 0.3 mg/dL (0.15-1.2) 10/15/22 18:37 AST 17 U/L (0-32) 10/15/22 18:37 ALT 18 U/L (0-33) 10/15/22 18:37 Alkaline Phosphatase 140 U/L (35-105) H 10/15/22 18:37 Troponin T Baseline 846 ng/L (0-10) H* 10/15/22 18:37 Total Protein 6.7 g/dL (6.6-8.7) 10/15/22 18:37 Albumin 3.9 g/dL (3.5-5.2) 10/15/22 18:37 Globulin 2.8 g/dL (1.3-4.6) 10/15/22 18:37 Lipase 18 U/L (13-60) 10/15/22 18:37 HCG, Qual Negative (Negative) 10/15/22 18:37 Discharge Plan Discharge Patient Disposition: Admitted As Inpatient Clinical Impression: ST elevation (STEMI) myocardial infarction Condition: Stable Coding Level of Care Code ED Elementary Ell Teacher for Chg Fwd Exam Comprehensive
[2022-10-15] MEDS: ondansetron 2 mg/ML SDV 2 mL 4 MG IVP (18:42)
[2022-10-15] MEDS: morphine 4 mg/mL SDV 1 mL IVP (18:42)
[2022-10-15] MEDS: heparin 5,000 unit/mL INJ 1 mL 4000 UNIT IVP (18:42)
--- NOTE | 2022-10-15 18:44 | XACV_ITS ---
Exam Room: ED.ROOM11 Ht: 178 cm Wt: 86 kg BSA: 2.08 m2 Gender: Female : 1975 Any Known Allergies: Other Exam Priority: Routine Procedure(s): Procedure Description: Diagnostic procedure Procedure Description: Coronary Angiography Diagnostic Cath Status: Emergency Diagnostic Findings * INDICATION: 47 year old female with past medical history of uncontrolled diabetes and STEMI recently with PCI of RCA has presented with 2 to 3 hours of severe chest pain. She says it is substernal. Also felt left arm pain. EKG has ST elevation in inferior leads. Also has Q waves. Changes are persistent from prior STEMI but given new onset pain and persistent ST changes, we will emergently take her to cardiac Territory Manager General Sales and perform coronary angiogram. * No significant disease noted in the Left Main, Left Anterior Descending, Right, or Circumflex coronary arteries. RCA has patent prior stent.. * Coronary angiography shows right dominance. Conclusions 1. No significant disease noted in the Left Main, Left Anterior Descending, Right, or Circumflex coronary arteries. RCA has patent prior stent.. Recommendations * Aggressive risk factor modification. * Continue dual antiplatelet therapy. * Outpatient cardiology follow up in 1-2 weeks. Interventional RX Recommendation: medical therapy and/or counseling Diagnostic RX Recommendation: medical therapy and/or counseling Anticoagulation: Heparin Pressures Phase:Rest AO : 115 / 72 ( 92 ) @ 1:36:37 PM 120 / 75 ( 97 ) @ 1:36:37 PM Clinical Evaluation EBL: 5mL-10mL Procedural Details Procedure Consent Obtained. Admit Source: Emergency department. Pre-Procedure Time Out. Identified patient by full name and date of as verbalized by the patient/guarantor. Does the consent match the physician's order: N/A Emergent. Accurate & Complete Informed Consent: N/A Emergent. Inpatient/Outpatient History & Physical on Chart: N/A Emergent. If H&P is completed, is and addenduem needed: No; If yes, is the addendum complete: Yes. If H&P is completed, is and addenduem needed: N/A Emergent; If yes, is the addendum complete: N/A Emergent. Visualize and Verify Site with Patient/Guarantor: N/A. Relevant Radiology Images available: N/A. The risks, benefits, and alternatives of sedation and/or procedure were discussed by physician. The patient agrees to continue. Procedure started. Current diagnosis: STEMI. PERRLA. Strong, equal hand hims coder bilaterally. Lungs clear x 5 lobes. IV Site on Arrival: 18 gauge in the right anticubital. IV Site on Arrival: 18 gauge in the left anticubital. IV Fluids: 0.9% NaCl at KVO. 0 mL infused prior to cath lab manager. Pre Procedural Pulses: bilateral posterior tibial was 1+. Pre Procedural Pulses: bilateral dorsalis pedis was 1+. Oxygen started at 0liters/min via nasal canula. bilateral groins was prepped with chloroprep then draped in the usual sterile fashion. Baseline sample Acquired. HR: 95 BPM. Physician notified. Physician arrived. Physician scrubbed in. Immediate Pre-Procedure Time Out. Correct Patient: N/A Emergent; Correct Procedure: N/A Emergent; Correct Site: N/A Emergent; Correct Patient Position: N/A Emergent; Correct Supplies: N/A Emergent; Dried Flammable Prep: N/A Emergent; Blood Products Available: N/A Emergent;. Lidocaine 1% infiltrated to the left groin. Hemodynamic formulas in Rest were re-calculated based on hemoglobin value from 10/15/2022 12:00:00 AM. Ultrasound requested and used by Dr Garcia for femoral access. Delay due to difficult vascular access. Arterial access obtained with micropuncture set. A 6 estonian JR4 catheter in over wire. Multiple views taken of right coronary artery. Catheter out. A 6 estonian JL4 catheter in over wire. Multiple views taken of left coronary artery. ACT drawn. Results 101 seconds. Therapeutic limits - pre-heparin administration 90-150 seconds and monitoring heparin during a vascular procedure >250 seconds. Catheter removed over the standard wire. A Suture was successful obtaining hemostatsis at the Right Femoral artery insertion site. PERRLA. Strong, equal hand hims coder bilaterally. No VTE prophylaxis required. Medication's Wasted: Heparin = 1000 units. Medication's Wasted: Other = versed 1 mg. Medication's Wasted: Other = fentanyl 50 mcg. Total IV fluids: 28 mL. Post-op diagnosis: patent RCA stent. Complications: none. Estimated blood loss: 5mL-10mL. Responsiveness - Normal response to verbal stimuli; alert and oriented, PERRLA. Airway - Unaffected, no intervention required; spontaneous ventilation. Circulation: W/N/L, pulses unchanged. Nausea/Vomiting: No. Procedure completed. Patient transferred by bed to 1st floor. Vital chart was stopped. Access Site Site: Right Femoral artery Sheath Size: 6 Fr Hemostasis Method: Suture Hemostasis Success: Successful Procedure Medications Start: 7:13 PM Stop: 7:13 PM Medication: Versed 1 mg and Fentanyl 25 mcg Amount: 1 Route: I.V. Start: 7:15 PM Stop: 7:15 PM Medication: Versed Amount: 1 mg Route: I.V. Start: 7:26 PM Stop: 7:26 PM Medication: Versed Amount: 1 mg Route: I.V. Start: 7:29 PM Stop: 7:29 PM Medication: Fentanyl Amount: 25 mcg Route: I.V. I, the attending physician, have reviewed and verified all procedure medications. Yes, all medications given per verbal order History/Risk Factors Hypertension: Yes Dyslipidemia: No Peripheral Arterial Disease (PAD): No Myocardial Infarction (MA): Yes Obesity: No Tobacco Use: Current/Recent(w/in 1 year) Prior Interventions PCI: Yes CABG: No Valve Surgery: No Date of PCI: 10/10/2022 Report Signatures Finalized by Honorio Garcia MD on 10/19/2022 06:12 PM
[2022-10-15 18:46] LABS: Basophils # 0.1 10^3/uL (0.0-0.1); Basophils % 0.7 %; Eosinophils # 0.5 10^3/uL (0.0-0.8); Eosinophils % 3.3 %; Hematocrit 38.4 % (37.0-47.0); Lymphocytes # 3.4 10^3/uL (0.8-4.8); Lymphocytes % 24.7 %; Mean Corpuscular HGB Conc 31.3 g/dL (30.0-36.0); Mean Corpuscular Hemoglobin 28.4 pg (28.0-34.0); Mean Corpuscular Volume 90.8 fl (81-99); Mean Platelet Volume 11.1 fL (7.4-10.4); Monocytes # 0.8 10^3/uL (0.2-0.9); Monocytes % 5.5 %; Neutrophils # 9.05 10^3/uL (1.8-7.7); Neutrophils % 65.4 %; Nucleated Red Blood Cells % 0 %; Platelet Count 333 10^3/cmm (130-400); Red Blood Count 4.23 10^6/uL (4.1-5.3); Red Cell Distribution Width 14.7 % (12.1-15.1); White Blood Count 13.8 10^3/uL (4.0-10.0)
[2022-10-15 18:57] LABS: HCG, Serum Qual Negative (Negative)
--- NOTE | 2022-10-15 19:04 | P.HP_ITS ---
Providers/Chief Complaint Admitting Physician: Honorio Garcia MD/ Cardiology Primary Care Provider: Karo Brooks APN Chief Complaint: Chest pain, arm pain History of Present Illness Chelsy Melendez is a 47 year old female with past medical history of uncontrolled diabetes and STEMI recently with PCI of RCA has presented with 2 to 3 hours of severe chest pain. She says it is substernal. Also felt left arm pain. EKG has ST elevation in inferior leads. Also has Q waves. We will emergently take her to cardiac Bonding And Composite Fabricator and perform coronary angiogram. Review of Systems Narrative: CONSTITUTIONAL: No fever chills weight loss or gain or night sweats. [] HEENT: Normocephalic, atraumatic.[] RESPIRATORY: No cough, sputum, hemoptysis or wheezing.[] CARDIOVASCULAR: Has chest pain GI: no nausea vomiting diarrhea. [] RADIOLOGIC THERAPIST: No numbness, tingling, weakness or loss of function in any part of the body. [] MUSCULOSKELETAL: No knee or joint pain or rashes. [] Medications/Allergies Home Medications Medication Instructions Recorded Confirmed Last Taken Type albuterol sulfate 90 mcg/actuation 2 inh inhalation Q6H PRN Shortness 02/23/21 10/13/22 02/22/21 History aerosol inhaler Of Breath buspirone 5 mg tablet 5 mg PO BID PRN Anxiety 02/23/21 10/13/22 Unknown History ipratropium 0.5 mg-albuterol 3 mg 3 ml inhalation Q4H PRN Shortness 02/23/21 10/13/22 Unknown Rx (2.5 mg base)/3 mL nebulization Of Breath #90 mL soln lisinopril 2.5 mg tablet 2.5 mg PO DAILY #90 tabs 02/23/21 10/13/22 Unknown Rx venlafaxine 75 mg capsule,extended 75 mg PO DAILY #7 caps 10/09/21 10/13/22 Unknown Rx release 24 hr (Effexor XR) pantoprazole 40 mg tablet,delayed 40 mg PO DAILY 10/11/22 10/13/22 Unknown History release aspirin 81 mg tablet,delayed 81 mg PO DAILY #90 tabs 10/12/22 10/13/22 Unknown Rx release atorvastatin 40 mg tablet 80 mg PO BEDTIME #120 tabs 10/12/22 10/13/22 Unknown Rx clopidogrel 75 mg tablet 75 mg PO DAILY #90 tabs 10/12/22 10/13/22 Unknown Rx insulin aspart U-100 100 unit/mL See Protocol SUBCUT TID #15 mL 10/12/22 10/13/22 Unknown Rx (3 mL) subcutaneous pen (Novolog FlexPen U-100 Insulin aspart) insulin detemir U-100 100 unit/mL 40 unit (0.4 mL) SUBCUT BID #15 mL 10/12/22 10/13/22 Unknown Rx (3 mL) subcutaneous pen (Levemir FlexTouch U-100 Insulin) metoprolol tartrate 50 mg tablet 50 mg PO BID@0900,2100 #120 tabs 10/12/22 10/13/22 Unknown Rx Allergies Allergy/AdvReac Type Severity Reaction Status Date / Time codeine Allergy ADR-Nightma Verified 12/03/21 15:14 re Influenza Virus Vaccines Allergy ADR-Vomitin Verified 12/03/21 15:14 g PFSH Acute PFSH: Medical History Anxiety COPD (chronic obstructive pulmonary disease) Diabetes mellitus, type II Currently diet controlled 3 para 3 Hiatal hernia History of COVID-19 (~04/2020) with some non respiratory persistent symptoms Hx of supraventricular tachycardia STEMI (ST elevation myocardial infarction) Surgical History History of colonoscopy (~2016) History of esophagogastroduodenoscopy (EGD) (~2016) History of tubal ligation Family History Father Cancer lung Mother Cancer lung Social History Smoking and tobacco status: current every day smoker cigarettes Alcohol intake: current Alcohol intake frequency: holidays/special occasions only Household members: spouse Marital status: Female Reproductive History: Date of last menstrual period: 02/19/21 Vitals/I&O/Wt Last Vital Signs Temp 98.6 F 10/15/22 18:26 Pulse 97 10/15/22 18:55 Resp 25 H 10/15/22 18:55 BP 122/73 10/15/22 18:55 Pulse Ox 96 10/15/22 18:55 O2 Del Method 10/15/22 18:26 Weight last 48 hrs Weight 190 lb Physical Exam Narrative: GENERAL: Patient is alert, awake and oriented x3. [] NECK: No jugular vein distension. [] HEENT: No cyanosis. No icterus. No pallor. [] HEART: Regular S1 and S2. No murmur, rub or gallop. [] LUNGS: Clear to auscultate bilaterally. [] ABDOMEN: Soft, nontender and nondistended. Positive bowel sounds. No guarding, rebound or tenderness. [] CENTRAL NERVOUS SYSTEM: Grossly nonfocal. [] EXTREMITIES: Lower extremities with no edema bilaterally. Pulses palpable in the lower extremities, both dorsalis pedis and posterior tibial. [] Data 10/15/22 18:37 10/15/22 18:37 A&P Assessment and plan (1) Chest pain: (2) Hypertension: (3) Diabetes: Plan Patient has presented with chest pain symptoms that she feels are similar to her heart regular presentation. EKG shows persistent ST elevations in inferior leads with Q waves. It can be changes from recent STEMI. However given her ongoing chest pain with ST elevation, we will perform emergent cardiac catheterization to rule out stent thrombosis. We will continue with current medications including aspirin and Plavix. We will obtain labs including troponins We will consult hospitalist team for diabetes management overnight. Attestations Medical Necessity Statement*: Care not expected to cross 2 midnights. Patient has presented with chest pain and has ST elevation in inferior leads. Plan for emergent coronary angiogram. Coding Level of Care Code Acute Code for [facility] Diagnoses Chest pain R07.9 Hypertension I10 Diabetes E11.9
[2022-10-15 19:09] LABS: Alanine Aminotransferase 18 U/L (0-33); Albumin Level 3.9 g/dL (3.5-5.2); Alkaline Phosphatase 140 U/L (35-105); Anion Gap 17.6 (5-19); Aspartate Amino Transferase 17 U/L (0-32); Blood Urea Nitrogen 11 mg/dL (6-20); Carbon Dioxide 24 mmol/L (22-29); Chloride 100 mmol/L (98-107); Globulin 2.8 g/dL (1.3-4.6); Glomerular Filtration Rate 90.5 mL/min (90-130); Glucose 206 mg/dL (65-115); Lipase 18 U/L (13-60); Osmolality Calculated 291 mOsm/kg (285-295); Potassium 3.6 mmol/L (3.5-5.1); Sodium 138 mmol/L (136-145); Total Bilirubin 0.3 mg/dL (0.15-1.2); Total Protein 6.7 g/dL (6.6-8.7); Troponin(5th) Baseline 846 ng/L (0-10)
--- NOTE | 2022-10-15 19:58 | PC.NURSE ---
Pt tx to geotechnical laboratory technician @ 1909 - discharge assessment not completed.
[2022-10-15 20:19] LABS: Glucose Point of Care 157 mg/dL (70-110)
--- NOTE | 2022-10-15 20:35 | PC.NURSE ---
Patient received from golf course laborer via bed. Patient is s/p [facility] with left femoral access site. No pressure bag attached. Sheath in place. Received instruction to remove sheath on admission. Sheath removal at 2003 per protocol. Hemostasis achieved immediately. Maintained pressure for 20min. No s/s of bleeding or hematoma observed. VS remained WNL. Dressed site with 2x2 and bio-occlusive dressing. Instructed patient on site care and restrictions. Patient verbalized and demonstrated complete understanding. Will continue to monitor.
--- NOTE | 2022-10-15 20:49 | P.CONIM_ITS ---
Providers/Reason For Consult Consulting Physician/Specialty*: Hospitalist Reason for Consult*: Diabetes Attending Physician: Honorio Garcia M.D Primary Care Provider: Karo Brooks APN History of Present Illness History of Present Illness Chelsy Melendez is a 47 year old female who went for cardiac cath today has history of uncontrolled diabetes, recently had STEMI with PCI to RCA presented with recurrence of chest pain. As per Dr. Bender coronary angiogram was unremarkable, hospital service was consulted for diabetes management because of her labile blood sugar at home. Hemoglobin A1c around 11.4 Takes Levemir 40 units twice a day along with NovoLog Premeal which has been recently increased. Review of Systems Const: Denies: fever(s) Eyes: Denies: change in vision ENMT: Denies: throat pain or odynophagia Card: Denies: chest pain Resp: Denies: dyspnea GI: Denies: abdominal pain : Denies: flank pain Musc: Denies: neck pain Skin/Breast: Denies: rash Neuro: Denies: headache(s) Psych: Reports: anxiety Endo: Denies: polyuria Ezequiel/Lymph: Denies: easy bruising All/Imm: Denies: urticaria Medications/Allergies Home Medications Medication Instructions Recorded Confirmed Last Taken Type albuterol sulfate 90 mcg/actuation 2 inh inhalation Q6H PRN Shortness 02/23/21 10/15/22 10/15/22 History aerosol inhaler Of Breath buspirone 5 mg tablet 5 mg PO BID PRN Anxiety 02/23/21 10/15/22 10/15/22 History ipratropium 0.5 mg-albuterol 3 mg 3 ml inhalation Q4H PRN Shortness 02/23/21 10/15/22 10/15/22 Rx (2.5 mg base)/3 mL nebulization Of Breath #90 mL soln lisinopril 2.5 mg tablet 2.5 mg PO DAILY #90 tabs 02/23/21 10/15/22 10/15/22 Rx venlafaxine 75 mg capsule,extended 75 mg PO DAILY #7 caps 10/09/21 10/15/22 0 10/15/22 Rx release 24 hr (Effexor XR) pantoprazole 40 mg tablet,delayed 40 mg PO DAILY 10/11/22 10/15/22 10/15/22 History release aspirin 81 mg tablet,delayed 81 mg PO DAILY #90 tabs 10/12/22 10/15/22 10/15/22 Rx release atorvastatin 40 mg tablet 80 mg PO BEDTIME #120 tabs 10/12/22 10/15/22 10/15/22 Rx clopidogrel 75 mg tablet 75 mg PO DAILY #90 tabs 10/12/22 10/15/22 10/15/22 Rx insulin aspart U-100 100 unit/mL See Protocol SUBCUT TID #15 mL 10/12/22 10/15/22 10/15/22 Rx (3 mL) subcutaneous pen (Novolog FlexPen U-100 Insulin aspart) insulin detemir U-100 100 unit/mL 40 unit (0.4 mL) SUBCUT BID #15 mL 10/12/22 10/15/22 10/15/22 Rx (3 mL) subcutaneous pen (Levemir FlexTouch U-100 Insulin) metoprolol tartrate 50 mg tablet 50 mg PO BID@0900,2100 #120 tabs 10/12/22 10/15/22 10/15/22 Rx Allergies Allergy/AdvReac Type Severity Reaction Status Date / Time codeine Allergy ADR-Nightma Verified 12/03/21 15:14 re Influenza Virus Vaccines Allergy ADR-Vomitin Verified 12/03/21 15:14 g PFSH Acute PFSH: Medical History Anxiety COPD (chronic obstructive pulmonary disease) Diabetes mellitus, type II Currently diet controlled 3 para 3 Hiatal hernia History of COVID-19 (~04/2020) with some non respiratory persistent symptoms Hx of supraventricular tachycardia STEMI (ST elevation myocardial infarction) Surgical History History of colonoscopy (~2016) History of esophagogastroduodenoscopy (EGD) (~2016) History of tubal ligation Family History Father Cancer lung Mother Cancer lung Social History Smoking and tobacco status: current every day smoker cigarettes Alcohol intake: current Alcohol intake frequency: holidays/special occasions only Household members: spouse Marital status: Female Reproductive History: Date of last menstrual period: 02/19/21 Vitals/I&O/Wt Last Vital Signs Temp 98.3 F 10/15/22 20:30 Pulse 83 10/15/22 20:30 Resp 17 10/15/22 20:30 BP 98/85 10/15/22 20:30 Pulse Ox 96 10/15/22 20:30 O2 Del Method 10/15/22 20:34 10/15/22 10/15/22 10/15/22 06:59 14:59 22:59 Output Total 500 / 500 Balance -500 / -500 Weight last 48 hrs Weight 86.183 kg Physical Exam Narrative: Pleasant cooperative Chest pain-free Abdomen soft Doing well on room air S1, S2 Blood pressure slightly soft Asymptomatic Edema, PERRLA Pleasant and cooperative GCS 15 Data 10/15/22 18:37 10/15/22 18:37 A&P Assessment and plan (1) Chest pain: (2) Hypertension: (3) Diabetes: (4) Fibromyalgia: (5) Diabetic neuropathy: (6) Chronic daily headache: (7) Nicotine dependence, cigarettes, with other nicotine-induced disorders: Plan Poorly controlled type 2 diabetes Target blood glucose during hospitalization 100 4280 mg/dL I will reduce long-acting insulin units down to 20% at home she takes Levemir 40 units twice a day, will use Lantus 30 units twice a day for now along moderate dose sliding scale She might benefit from outpatient Dr. Ramirez's referral Consistent carbohydrate diet Full code As per the cardiology there is plan to discharge her tomorrow in the morning Consult Attestations Medical Necessity Statement: As per the cardiology Time Spent in Patient Care: 40 Coding Level of Care Code Acute Code for [facility] Diagnoses Chest pain R07.9 Hypertension I10 Diabetes E11.9 Fibromyalgia M79.7 Diabetic neuropathy E11.40 Chronic daily headache R51.9 Nicotine dependence, cigarettes, with other nicotine-induced disorders F17.218
[2022-10-15] MEDS: atorvastatin 40 mg Tablet 80 MG PO (20:50)
[2022-10-15] MEDS: metoprolol tartrate 50 mg Tablet PO (20:50)
[2022-10-15] MEDS: sodium chloride 0.9% 1,000 ML 100 ML IV (20:54)
[2022-10-15 21:11] LABS: Troponin 5 2HR 785.8 ng/L (0-10)
--- NOTE | 2022-10-15 23:19 | PC.NURSE ---
Dressing to left groin remains c,d,i with no s/s of bleeding or hematoma formation observed. Patient denies pain to site. Will continue to monitor.
[2022-10-16] VITALS: BP 100/63; PULSE 89; RESP 12; O2SAT 96
--- NOTE | 2022-10-16 00:23 | ECG_ITS ---
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 Measurements Intervals [place] Rate: 86 P: 55 SC: 171 QRS: -67 QRSD: 106 T: 24 QT: 387 QTc: 464 Interpretive Statements SINUS RHYTHM LEFT AXIS DEVIATION [QRS AXIS < -30] INCOMPLETE RIGHT BUNDLE BRANCH BLOCK [90+ ms QRS DURATION, TERMINAL R IN V1/V2, 40+ ms S IN I/aVL/V4/V5/V6] ANTERIOR MYOCARDIAL INFARCTION , PROBABLY RECENT [40+ ms Q WAVE AND/OR ST/T ABNORMALITY IN V3/V4] ST ELEVATION, CONSIDER INFERIOR INJURY [MARKED ST ELEVATION W/O NORMALLY INFLECTED T-WAVE IN II/aVF] ACUTE PR Compared to ECG 10/15/2022 18:28:48 Incomplete right bundle-branch block now present Myocardial infarct finding still present ST (T wave) deviation still present Electronically Signed On 10-16-2022 8:40:12 SPEECH PATHOLOGY ASSISTANT by Lisset Meeks M.D. [email or web address]
[2022-10-16 01:00] VITALS: BP 97/65; PULSE 87; RESP 13; O2SAT 94
--- NOTE | 2022-10-16 01:22 | PC.NURSE ---
Dressing to left groin remains c,d,i at this time. No s/s of bleeding or hematoma formation observed. Left pedal pulse palpable and warm to touch. Will continue to monitor.
[2022-10-16 01:38] LABS: Basophils % 0.4 %; Eosinophils # 0.3 10^3/uL (0.0-0.8); Eosinophils % 3.4 %; Hematocrit 33.3 % (37.0-47.0); Hemoglobin 10.4 g/dL (11.5-15.3); Lymphocytes # 2.3 10^3/uL (0.8-4.8); Lymphocytes % 24.2 %; Mean Corpuscular HGB Conc 31.2 g/dL (30.0-36.0); Mean Corpuscular Hemoglobin 28.6 pg (28.0-34.0); Mean Corpuscular Volume 91.5 fl (81-99); Mean Platelet Volume 11.1 fL (7.4-10.4); Monocytes # 0.6 10^3/uL (0.2-0.9); Monocytes % 6.3 %; Neutrophils # 6.05 10^3/uL (1.8-7.7); Neutrophils % 65.3 %; Nucleated Red Blood Cells % 0 %; Platelet Count 254 10^3/cmm (130-400); Red Blood Count 3.64 10^6/uL (4.1-5.3); Red Cell Distribution Width 14.7 % (12.1-15.1); White Blood Count 9.3 10^3/uL (4.0-10.0)
[2022-10-16 01:54] LABS: Anion Gap 17.2 (5-19); Blood Urea Nitrogen 11 mg/dL (6-20); Calcium 8.3 mg/dL (8.5-10.5); Carbon Dioxide 22 mmol/L (22-29); Chloride 104 mmol/L (98-107); Glomerular Filtration Rate 133.4 mL/min (90-130); Glucose 242 mg/dL (65-115); Osmolality Calculated 295 mOsm/kg (285-295); Potassium 4.2 mmol/L (3.5-5.1); Sodium 139 mmol/L (136-145)
[2022-10-16 03:55] LABS: Troponin 5 6HR 665.3 ng/L (0-10)
[2022-10-16 06:34] VITALS: PULSE 82
[2022-10-16 07:32] LABS: Glucose Point of Care 215 mg/dL (70-110)
[2022-10-16] MEDS: aspirin 81 mg EC Tablet PO (08:08)
[2022-10-16] MEDS: clopidogrel 75 mg Tablet PO (08:08)
[2022-10-16] MEDS: metoprolol tartrate 50 mg Tablet PO (08:09)
[2022-10-16] MEDS: insulin lispro 100 unit/1 mL SUBCUT (08:09)
--- NOTE | 2022-10-16 08:11 | PM.DCS ---
Discharge Providers Date of Admission: 10/15/22 19:56 Date of Discharge: October 16, 2022 Attending Provider at Admission: Honorio Garcia M.D Attending Provider at Discharge: Honorio Garcia M.D Primary Care Provider: Karo Brooks APN Diagnoses at Discharge Discharge Diagnosis (1) Chest pain: Status: Resolved (2) Hypertension: Status: Acute (3) Diabetes: Status: Acute (4) Fibromyalgia: Status: Acute (5) Diabetic neuropathy: Status: Acute (6) Chronic daily headache: Status: Acute (7) Nicotine dependence, cigarettes, with other nicotine-induced disorders: Status: Chronic Reason for Visit Reason for Visit: Chest pain, arm pain Brief History: ?47 year old female with past medical history of uncontrolled diabetes and STEMI recently with PCI of RCA has presented with 2 to 3 hours of severe chest pain.? She says it is substernal.? Also felt left arm pain.? EKG has ST elevation in inferior leads.? Also has Q waves.? We will emergently take her to cardiac [employer] and perform coronary angiogram. Hospital Course Hospital Course Coronary angiogram revealed patent prior RCA stent. No other significant CAD was seen. Patient's chest pain resolved overnight. Medicine team helped with management of diabetes. She was discharged home in a stable condition. Physical Exam Narrative: GENERAL: Patient is alert, awake and oriented x3. [] NECK: No jugular vein distension. [] HEENT: No cyanosis. No icterus. No pallor. [] HEART: Regular S1 and S2. No murmur, rub or gallop. [] LUNGS: Clear to auscultate bilaterally. [] ABDOMEN: Soft, nontender and nondistended. Positive bowel sounds. No guarding, rebound or tenderness. [] CENTRAL NERVOUS SYSTEM: Grossly nonfocal. [] EXTREMITIES: Lower extremities with no edema bilaterally. Pulses palpable in the lower extremities, both dorsalis pedis and posterior tibial. [] Discharge Data Studies Completed and Pending Completed Studies During Hospitalization Category Date Time Status XR chest 1V portable [id number] Stat Exams 10/15/22 18:23 Completed Pending at discharge Category Date Time Status TOP IRONER request for service Stat Exams 10/15/22 18:44 Taken Radiology Impressions Chest X-Ray 10/15/22 18:23 IMPRESSION: Minor linear atelectasis at the right mid lung. Otherwise, no acute findings. Laboratory Results WBC 9.3 10^3/uL (4.0-10.0) 10/16/22 01:20 RBC 3.64 10^6/uL (4.1-5.3) L 10/16/22 01:20 Hgb 10.4 g/dL (11.5-15.3) L 10/16/22 01:20 Hct 33.3 % (37.0-47.0) L 10/16/22 01:20 MCV 91.5 fl (81-99) 10/16/22 01:20 MCH 28.6 pg (28.0-34.0) 10/16/22 01:20 MCHC 31.2 g/dL (30.0-36.0) 10/16/22 01:20 RDW 14.7 % (12.1-15.1) 10/16/22 01:20 Plt Count 254 10^3/cmm (130-400) 10/16/22 01:20 MPV 11.1 fL (7.4-10.4) H 10/16/22 01:20 Neut % (Auto) 65.3 % 10/16/22 01:20 Lymph % (Auto) 24.2 % 10/16/22 01:20 [place] % (Auto) 6.3 % 10/16/22 01:20 Eos % (Auto) 3.4 % 10/16/22 01:20 Baso % (Auto) 0.4 % 10/16/22 01:20 Neut # (Auto) 6.05 10^3/uL (1.8-7.7) 10/16/22 01:20 Lymph # (Auto) 2.3 10^3/uL (0.8-4.8) 10/16/22 01:20 [place] # (Auto) 0.6 10^3/uL (0.2-0.9) 10/16/22 01:20 Eos # (Auto) 0.3 10^3/uL (0.0-0.8) 10/16/22 01:20 Baso # (Auto) 0.0 10^3/uL (0.0-0.1) 10/16/22 01:20 Nucleated RBC % (auto) 0 % 10/16/22 01:20 Nucleated RBCs # 0.0 /100WBC 10/16/22 01:20 Sodium 139 mmol/L (136-145) 10/16/22 01:20 Potassium 4.2 mmol/L (3.5-5.1) 10/16/22 01:20 Chloride 104 mmol/L (98-107) 10/16/22 01:20 Carbon Dioxide 22 mmol/L (22-29) 10/16/22 01:20 Anion Gap 17.2 (5-19) 10/16/22 01:20 BUN 11 mg/dL (6-20) 10/16/22 01:20 Creatinine 0.5 mg/dL (0.5-0.9) 10/16/22 01:20 GFR Calculation 133.4 mL/min (90-130) H 10/16/22 01:20 Glucose 242 mg/dL (65-115) H 10/16/22 01:20 POC Glucose 215 mg/dL (70-110) H 10/16/22 07:24 Calculated Osmolality 295 mOsm/kg (285-295) 10/16/22 01:20 Calcium 8.3 mg/dL (8.5-10.5) L 10/16/22 01:20 Total Bilirubin 0.3 mg/dL (0.15-1.2) 10/15/22 18:37 AST 17 U/L (0-32) 10/15/22 18:37 ALT 18 U/L (0-33) 10/15/22 18:37 Alkaline Phosphatase 140 U/L (35-105) H 10/15/22 18:37 Troponin T Baseline 846 ng/L (0-10) H* 10/15/22 18:37 Troponin T 120 Minute 785.8 ng/L (0-10) H 10/15/22 20:28 Delta Troponin T -60.2 ABS# (0-10) L 10/15/22 20:28 Troponin T Hi Sens 6Hr 665.3 ng/L (0-10) H 10/16/22 01:20 Troponin T Hi Sens 6Hr Delta -180.7 ng/L (0-12) L 10/16/22 01:20 Total Protein 6.7 g/dL (6.6-8.7) 10/15/22 18:37 Albumin 3.9 g/dL (3.5-5.2) 10/15/22 18:37 Globulin 2.8 g/dL (1.3-4.6) 10/15/22 18:37 Lipase 18 U/L (13-60) 10/15/22 18:37 HCG, Qual Negative (Negative) 10/15/22 18:37 Vitals Last Vital Signs Temp 98.3 F 10/15/22 20:30 Pulse 82 10/16/22 06:34 Resp 13 10/16/22 01:00 BP 97/65 10/16/22 01:00 Pulse Ox 94 10/16/22 01:00 O2 Del Method 10/15/22 21:00 Discharge Plan Discharge Patient Disposition: Home Condition: Stable Prescriptions: Continued venlafaxine [Effexor XR] 75 mg capsule,extended release 24hr 75 mg PO DAILY Qty: 7 0RF Rx Instructions: take 75mg for 7 days then increase to 150mg buspirone 5 mg tablet 5 mg PO BID PRN (Reason: Anxiety) albuterol sulfate 90 mcg/actuation HFA aerosol inhaler 2 inh INHALATION Q6H PRN (Reason: Shortness Of Breath) ipratropium-albuterol 0.5 mg-3 mg(2.5 mg base)/3 mL Solution For Nebulization 3 ml inhalation Q4H PRN (Reason: Shortness Of Breath) Qty: 90 3RF lisinopril 2.5 mg tablet 2.5 mg PO DAILY Qty: 90 0RF pantoprazole 40 mg Tablet,Delayed Release (Dr/Ec) 40 mg PO DAILY insulin aspart U-100 [Novolog FlexPen U-100 Insulin] 100 unit/mL (3 mL) insulin pen See Protocol SUBCUT TID Qty: 15 0RF Protocol: Insulin Corrective High-Dose Regimen Condition: Fingerstick Blood Glucose Dose/Route: Insulin Units Condition: 141-180 mg/dl Dose/Route: 6 units/SQ Condition: 181-220 mg/dl Dose/Route: 8 units/SQ Condition: 221-260 mg/dl Dose/Route: 10 units/SQ Condition: 261-300 mg/dl Dose/Route: 12 units/SQ Condition: 301-350 mg/dl Dose/Route: 14 units/SQ Condition: 351-400 mg/dl Dose/Route: 16 units/SQ Condition: greater than 400 mg/dl Dose/Route: 18 units/SQ Protocol Text: 141-180 --6 units/SQ 181-220 --8 units/SQ 221-260 --10 units/SQ 261-300--12 units/SQ 301-350 --14 units/SQ 351-400 --16 units/SQ greater than 400 --18 units/SQ Levemir FlexTouch U-100 Insuln 100 unit/mL (3 mL) insulin pen 40 unit SUBCUT BID Qty: 15 0RF atorvastatin 40 mg Tablet 80 mg PO BEDTIME Qty: 120 3RF clopidogrel 75 mg Tablet 75 mg PO DAILY Qty: 90 3RF aspirin 81 mg Tablet,Delayed Release (Dr/Ec) 81 mg PO DAILY Qty: 90 3RF metoprolol tartrate 50 mg Tablet 50 mg PO BID@0900,2100 Qty: 120 3RF Discharge Orders: Discharge Order (Routine); Ordered 10/16/22 Ordered By: Honorio Garcia Referrals: Karo Brooks APN [Primary Care Provider] - (scheduled follow up for Thursday at 1:00 pm with Karo Brooks, if you have any questions please call [phone]) Discharge Diet: Diabetic Discharge Activity: Increase activity as tolerated Patient Instructions: Chest Pain Stoplight, Opioid Safety, Post Angiogram Home Care Instructions Discharge Attestations Time Spent in Discharge Care*: less than 30 min Quality Metrics Clinical Quality Measures [ No reported AMI, CVA or VTE this stay] Coding Level of Care Code Acute Code for Chg Fwd Diagnoses Chest pain R07.9 Hypertension I10 Diabetes E11.9 Fibromyalgia M79.7 Diabetic neuropathy E11.40 Chronic daily headache R51.9 Nicotine dependence, cigarettes, with other nicotine-induced disorders F17.218
[2022-10-16] MEDS: insulin glargine 100 units/1 mL 40 UNIT SUBCUT (08:32)
--- NOTE | 2022-10-16 08:56 | PM.PN ---
Subjective Subjective: Seen this morning. Blood sugar a lot better.. 215. Patient will be following up with endocrinology at discharge. Chest pain-free. Vitals/I&O/Wt Last Vital Signs Temp 98.3 F 10/15/22 20:30 Pulse 82 10/16/22 06:34 Resp 13 10/16/22 01:00 BP 97/65 10/16/22 01:00 Pulse Ox 94 10/16/22 01:00 O2 Del Method 10/15/22 21:00 10/15/22 10/16/22 10/16/22 22:59 06:59 14:59 Intake Total 240 / 240 1000 / 1240 Output Total 500 / 500 Balance -260 / -260 1000 / 740 Weight last 48 hrs Weight 86.183 kg Physical Exam Narrative: Pleasant cooperative Chest pain-free Abdomen soft Doing well on room air S1, S2 Blood pressure slightly soft Asymptomatic Edema, PERRLA Pleasant and cooperative GCS 15 Data 10/16/22 01:20 10/16/22 01:20 A&P Assessment and plan (1) Chest pain: (2) Hypertension: (3) Diabetes: (4) Fibromyalgia: (5) Diabetic neuropathy: (6) Chronic daily headache: (7) Nicotine dependence, cigarettes, with other nicotine-induced disorders: Plan Poorly controlled type 2 diabetes Target blood glucose during hospitalization 140-180 mg/dL I will reduce long-acting insulin units down to 20% at home she takes Levemir 40 units twice a day, will use Lantus 30 units twice a day for now along moderate dose sliding scale She might benefit from outpatient Dr. Ramirez's referral Consistent carbohydrate diet Full code Patient will be discharged today as per cardiology. She will need endocrinology referral at discharge. With the patient to continue to monitor her blood sugars and she may titrate her Lantus up or down pending her fasting sugar values. Not to make changes more than 2 units/day. Patient says she understands it would also be following a low-carb diet. She looks forward to seeing endocrinology. Attestations Medical Necessity Statement*: Defer to primary team. Coding Level of Care Code Acute Code for g Fwd Diagnoses Chest pain R07.9 Hypertension I10 Diabetes E11.9 Fibromyalgia M79.7 Diabetic neuropathy E11.40 Chronic daily headache R51.9 Nicotine dependence, cigarettes, with other nicotine-induced disorders F17.218
[2022-10-16 09:04] VITALS: PULSE 82
--- NOTE | 2022-10-16 09:59 | PC.NURSE ---
discharge instructions given and explained.pt verb understanding of instructions.discharged via w/c to exit.son to drive pt home
== END 2022-10-16 09:59 | disposition home or self-care (01) ==
LOC: ER 18:50 → CCL 19:05 → CSU 10-16 00:40
PROVIDERS: Admitting Provider Internal Medicine; Emergency Provider Emergency Medicine; PCP Nurse Practitioner Family; Visit Provider Internal Medicine
DX: R07.9 Chest pain, unspecified (principal); I10 Essential (primary) hypertension; M79.7 Fibromyalgia; E11.40 Type 2 diabetes mellitus with diabetic neuropathy, unspecified; Z79.4 Long term (current) use of insulin; R51.9 Headache, unspecified; F17.218 Nicotine dependence, cigarettes, with other nicotine-induced disorders; Z79.82 Long term (current) use of aspirin; F41.9 Anxiety disorder, unspecified; J44.9 Chronic obstructive pulmonary disease, unspecified; Z86.16 Personal history of COVID-19; I25.2 Old myocardial infarction
CPT/HCPCS: 36415; 36416; 71045; 80048; 80053; 82962; 83690; 84484; 84703; 85025; 85347; 93005; 93454; 96361; 96372; 96374; 96375; 96376; 99152; 99285; C1769; C1887; C1894; G0378; J1644; J1815; J2250; J2270; J2405; J3010; J7030; Q9967

== ENCOUNTER 2022-11-14 11:44 | Outpatient (RCR) | payer BC, SELFPAY | END 2022-12-12 23:59 | disposition home or self-care (01) | LOC: CR 11:44 | PROVIDERS: PCP Nurse Practitioner Family; Referring Provider Internal Medicine; Visit Provider Internal Medicine | DX: I25.2 Old myocardial infarction (principal) | CPT/HCPCS: 93798 ==

== ENCOUNTER → 2022-11-20 16:35 | Outpatient (BNVA) | payer BC, SELFPAY | PROVIDERS: PCP Nurse Practitioner Family; Visit Provider Internal Medicine Pulmonary Disease | DX: R06.02 Shortness of breath (principal); J44.9 Chronic obstructive pulmonary disease, unspecified; F17.218 Nicotine dependence, cigarettes, with other nicotine-induced disorders; Z95.5 Presence of coronary angioplasty implant and graft; J30.2 Other seasonal allergic rhinitis | CPT/HCPCS: 82785; 86003 ==

== ENCOUNTER 2022-12-22 13:14 | Emergency (ER) | payer BC, SELFPAY ==
[2022-12-22 13:22] VITALS: BP 129/87; PULSE 94; RESP 18; TEMP 36.7; O2SAT 97
[2022-12-22 14:10] VITALS: BP 99/71; PULSE 80; RESP 16; TEMP 37.2; O2SAT 97
[2022-12-22 15:30] VITALS: BP 124/90; PULSE 79; RESP 16; TEMP 36.9; O2SAT 99
[2022-12-22 17:10] VITALS: BP 140/81; O2SAT 94
--- NOTE | 2022-12-22 17:31 | XRR_ITS ---
PROCEDURE INFORMATION: Exam: XR Chest Exam date and time: 12/22/2022 5:49 PM Age: 47 years old Clinical indication: Cough; Additional info: HTN TECHNIQUE: Imaging protocol: Radiologic exam of the chest. Views: 1 view. COMPARISON: CR XR chest 1V portable [id number] 10/15/2022 6:38 PM FINDINGS: Lungs: Unremarkable. No consolidation. Pleural spaces: Unremarkable. No pleural effusion. No pneumothorax. Heart/Mediastinum: Unremarkable. No cardiomegaly. Bones/joints: Unremarkable. XR/XR chest 1V portable [id number] IMPRESSION: No acute findings.
--- NOTE | 2022-12-22 17:31 | W.ED.NEUROSD ---
HPI - Neuro Symptoms/Deficit General: Chief Complaint: Neuro Symptoms/Deficit Stated Complaint: left arm pains/numb Time Seen by Provider: 12/22/22 17:06 History of Present Illness: Patient presents to the ER complaining of just not feeling well all over. Patient states her left arm started numbness and tingling at around the elbow and went down in her hand. This was to happen today about 11:00 today patient reports the feeling is back to normal but the patient still just does not feel good all over. Patient went in for a pulmonary function test this morning but had it rescheduled due to her general illness. Patient is complaining of some mild bilateral flank pain and think she may have a urinary tract infection or kidney stone. Onset (ago): day(s) Location: left arm (Numbness at the elbow going to the hand that is resolved) History of same: No Severity: mild Context: gradual onset On Anticoagulants: Yes Associated symptoms: Reports malaise; Deny chest pain, headache(s), nausea or vomiting Treatments Prior to Arrival: Aspirin Review of Systems General: Reports: 10 or more systems reviewed and unremarkable except in HPI and below Const: Reports: malaise; Denies: fever(s) or chills Eyes: Denies: change in vision ENMT: Denies: throat pain or odynophagia Card: Denies: chest pain, palpitations, irregular heart rhythm or edema Resp: Denies: dyspnea, productive cough or non-productive cough GI: Denies: abdominal pain, nausea, vomiting or diarrhea : Reports: flank pain; Denies: difficulty voiding or dysuria Musc: Denies: neck pain or back pain Skin/Breast: Denies: rash or pruritus Neuro: Reports: numbness in extremities; Denies: headache(s) or weakness in extremities Psych: Denies: anxiety or depression PFSH ED PFSH: Medical History Anxiety COPD (chronic obstructive pulmonary disease) Diabetes mellitus, type II Currently diet controlled Diabetic neuropathy associated with type 2 diabetes mellitus 3 para 3 Hiatal hernia History of COVID-19 (~04/2020) with some non respiratory persistent symptoms Hx of supraventricular tachycardia ST elevation (STEMI) myocardial infarction STEMI (ST elevation myocardial infarction) Surgical History History of colonoscopy (~2017) History of esophagogastroduodenoscopy (EGD) (~2017) History of tubal ligation Family History Father Cancer lung Mother Cancer lung Social History Smoking and tobacco status: current every day smoker cigarettes Alcohol intake: current Alcohol intake frequency: holidays/special occasions only Household members: spouse Marital status: Physical Exam Const: COMMON NORMALS: no acute distress, average body habitus, patient oriented x3, no limitations, healthy appearing, alert and well nourished HENMT: COMMON NORMALS: normocephalic, atraumatic, hearing grossly normal bilaterally, external ears normal, Normal external nose present and moist oral mucous membranes HEAD & SCALP: normocephalic and atraumatic NOSE: Normal external nose present EXTERNAL EAR: Yes external ears normal Eye: COMMON NORMALS: Equal, round and reactive pupils present, EOMs intact bilaterally, conjunctivae normal and no scleral icterus CONJUNCTIVA: Yes conjunctivae normal PUPIL: Yes Equal, round and reactive pupils present Neck/C-Spine: COMMON NORMALS: full ROM, no lymphadenopathy, supple, no meningeal signs, no JVD and Thyroid normal THYROID: Thyroid normal Chest: COMMONS NORMALS: normal inspection of the chest and normal palpation of entire chest wall Resp: COMMON NORMALS: normal respiratory effort, No retractions, No use of accessory muscles and clear to auscultation bilaterally AUSCULTATION: clear to auscultation bilaterally Cardio: COMMON NORMALS: no JVD, regular rate, regular rhythm, S1 normal heart sound present, S2 normal heart sound present, No murmurs present (Cardio) and No rub (Cardio) RATE: regular rate RHYTHM: regular rhythm HEART SOUNDS: S1 normal heart sound present and S2 normal heart sound present GI: COMMON NORMALS: Normal to inspection, nondistended, normoactive bowel sounds present, Soft to palpation, non-tender, No hepatosplenomegaly present and no masses PALPATION: Yes Soft to palpation and Yes No hepatosplenomegaly present : OTHER: Bilateral flank pain with palpation Neuro: COMMON NORMALS: patient oriented x3, CN's II-XII intact bilaterally, moves all extremities, no focal motor deficits and no sensory deficits noted SENSORIUM/ORIENTATION: Yes alert MENINGEAL SIGNS: Yes no meningeal signs Psych: COMMON NORMALS: mental status grossly normal, Normal thought process present, cooperative, normal affect and speech normal SPEECH: Yes normal speech THOUGHT PROCESS: Normal thought process present Course Vital Signs: Vital signs: Vital Signs Temperature 98.5 F 12/22/22 15:30 Pulse Rate 73 12/22/22 18:36 Respiratory Rate 16 12/22/22 15:30 Blood Pressure 118/79 12/22/22 18:36 Pulse Oximetry 96 12/22/22 18:36 Oxygen Delivery Me thod 12/22/22 18:36 MDM - Neuro Symptoms/Deficit Medical Decision Making Patient presents to the ER with complaint of left hand numb and tingling from the wrist down. Patient came to the hospital for a pulmonary function test when she arrived she was just not feeling good overall so she decided come to the ER. Patient denies any chest pain nausea vomiting diarrhea at this time. Patient states her hand and arm has went back to normal. But she states she just does not feel well all over. Lab work was obtained included a CBC that revealed a white count of 11,000 metabolic panel that showed her sodium of 133 potassium 3.9 glucose of 130, urinalysis was negative for nitrites and leukocyte Estrace and blood. Chest x-ray was read off as negative per the radiologist. Is felt patient is having paresthesias in her left upper extremity which have resolved. Patient should follow-up with her primary care practitioner over the next 1 week as needed. Differential Diagnosis Unlikely carpal tunnel syndrome, convulsions, delirium, subarachnoid hemorrhage, peripheral neuropathy, cerebrovascular accident, multiple sclerosis or transient cerebral ischemia Lab Data 12/22/22 18:15 12/22/22 18:15 Radiology Impressions Chest X-Ray 12/22/22 17:31 IMPRESSION: No acute findings. Laboratory Results WBC 11.0 10^3/uL (4.0-10.0) H 12/22/22 18:15 RBC 4.90 10^6/uL (4.1-5.3) 12/22/22 18:15 Hgb 12.8 g/dL (11.5-15.3) 12/22/22 18:15 Hct 41.3 % (37.0-47.0) 12/22/22 18:15 MCV 84.3 fl (81-99) 12/22/22 18:15 MCH 26.1 pg (28.0-34.0) L 12/22/22 18:15 MCHC 31.0 g/dL (30.0-36.0) 12/22/22 18:15 RDW 13.2 % (12.1-15.1) 12/22/22 18:15 Plt Count 347 10^3/cmm (130-400) 12/22/22 18:15 MPV 10.5 fL (7.4-10.4) H 12/22/22 18:15 Neut % (Auto) 69.4 % 12/22/22 18:15 Lymph % (Auto) 22.9 % 12/22/22 18:15 Christian % (Auto) 5.1 % 12/22/22 18:15 Eos % (Auto) 1.6 % 12/22/22 18:15 Baso % (Auto) 0.6 % 12/22/22 18:15 Neut # (Auto) 7.60 10^3/uL (1.8-7.7) 12/22/22 18:15 Lymph # (Auto) 2.5 10^3/uL (0.8-4.8) 12/22/22 18:15 Christian # (Auto) 0.6 10^3/uL (0.2-0.9) 12/22/22 18:15 Eos # (Auto) 0.2 10^3/uL (0.0-0.8) 12/22/22 18:15 Baso # (Auto) 0.1 10^3/uL (0.0-0.1) 12/22/22 18:15 Nucleated RBC % (auto) 0 % 12/22/22 18:15 Nucleated RBCs # 0.0 /100WBC 12/22/22 18:15 Sodium 133 mmol/L (136-145) L 12/22/22 18:15 Potassium 3.9 mmol/L (3.5-5.1) 12/22/22 18:15 Chloride 97 mmol/L (98-107) L 12/22/22 18:15 Carbon Dioxide 26 mmol/L (22-29) 12/22/22 18:15 Anion Gap 13.9 (5-19) 12/22/22 18:15 BUN 12 mg/dL (6-20) 12/22/22 18:15 Creatinine 0.5 mg/dL (0.5-0.9) 12/22/22 18:15 GFR Calculation 133.4 mL/min (90-130) H 12/22/22 18:15 Glucose 130 mg/dL (65-115) H 12/22/22 18:15 Calculated Osmolality 278 mOsm/kg (285-295) L 12/22/22 18:15 Calcium 9.4 mg/dL (8.5-10.5) 12/22/22 18:15 Magnesium 1.8 mg/dL (1.7-2.3) 12/22/22 18:15 Total Bilirubin 0.4 mg/dL (0.15-1.2) 12/22/22 18:15 AST 11 U/L (0-32) 12/22/22 18:15 ALT 15 U/L (0-33) 12/22/22 18:15 Alkaline Phosphatase 126 U/L (35-105) H 12/22/22 18:15 Total Protein 7.4 g/dL (6.6-8.7) 12/22/22 18:15 Albumin 4.4 g/dL (3.5-5.2) 12/22/22 18:15 Globulin 3.0 g/dL (1.3-4.6) 12/22/22 18:15 Urine Color Yellow (Yellow) 12/22/22 18:13 Urine Appearance Hazy (CLEAR) A 12/22/22 18:13 Urine pH 5 (5-7) 12/22/22 18:13 Ur Specific [place] 1.020 (1.005-1.030) 12/22/22 18:13 Urine Protein Neg (Negative) 12/22/22 18:13 Urine Glucose (UA) Norm (Normal) 12/22/22 18:13 Urine Ketones Negative (Negative) 12/22/22 18:13 Urine Blood Neg (Negative) 12/22/22 18:13 Urine Nitrate Negative (Negative) 12/22/22 18:13 Urine Bilirubin Neg (Negative) 12/22/22 18:13 Urine Urobilinogen Neg mg/dL (Negative) 12/22/22 18:13 Ur Leukocyte Esterase Negative (Negative) 12/22/22 18:13 Urine RBC None /hpf (0-2) 12/22/22 18:13 Urine WBC 0-4 /hpf (0-5) H 12/22/22 18:13 Ur Squamous Epith Cells 0-4 /hpf (0-5) H 12/22/22 18:13 Amorphous Sediment Not Reportable 12/22/22 18:13 Urine Bacteria 4+ /hpf (NONE) H 12/22/22 18:13 EKG Data EKG 1: I personally reviewed and interpreted this EKG as follows: EKG interpretation date: 12/22/22 EKG interpretation time: 18:01 Prior EKG tracings: not available for review Interpretation: EKG showed normal sinus rhythm at 82 bpm, W[place] interval 171, QRS duration 108, QTc of 421, borderline LAD, nonspecific ST changes. Discharge Plan Discharge Patient Disposition: Home Clinical Impression: Arm paresthesia, left Condition: Stable Prescriptions: No Action venlafaxine [Effexor XR] 75 mg capsule,extended release 24hr 75 mg PO DAILY Qty: 7 0RF Rx Instructions: take 75mg for 7 days then increase to 150mg Trelegy Ellipta 100-62.5-25 mcg blister with device 1 inh inhalation DAILY Qty: 60 3RF fluticasone propionate [Flonase Allergy Relief] 50 mcg/actuation spray,suspension 1 spray intranasal BID Qty: 18 3RF Rx Instructions: administer into each nostril clonazepam 0.5 mg tablet 0.5 mg PO TID PRN buspirone 5 mg tablet 5 mg PO BID PRN (Reason: Anxiety) albuterol sulfate 90 mcg/actuation HFA aerosol inhaler 2 inh INHALATION Q6H PRN (Reason: Shortness Of Breath) ipratropium-albuterol 0.5 mg-3 mg(2.5 mg base)/3 mL Solution For Nebulization 3 ml inhalation Q4H PRN (Reason: Shortness Of Breath) Qty: 90 3RF pantoprazole 40 mg Tablet,Delayed Release (Dr/Ec) 40 mg PO DAILY insulin aspart U-100 [Novolog FlexPen U-100 Insulin] 100 unit/mL (3 mL) insulin pen See Protocol SUBCUT TID Qty: 15 0RF Protocol: Insulin Corrective High-Dose Regimen Condition: Fingerstick Blood Glucose Dose/Route: Insulin Units Condition: 141-180 mg/dl Dose/Route: 6 units/SQ Condition: 181-220 mg/dl Dose/Route: 8 units/SQ Condition: 221-260 mg/dl Dose/Route: 10 units/SQ Condition: 261-300 mg/dl Dose/Route: 12 units/SQ Condition: 301-350 mg/dl Dose/Route: 14 units/SQ Condition: 351-400 mg/dl Dose/Route: 16 units/SQ Condition: greater than 400 mg/dl Dose/Route: 18 units/SQ Protocol Text: 141-180 --6 units/SQ 181-220 --8 units/SQ 221-260 --10 units/SQ 261-300--12 units/SQ 301-350 --14 units/SQ 351-400 --16 units/SQ greater than 400 --18 units/SQ Levemir FlexTouch U-100 Insuln 100 unit/mL (3 mL) insulin pen 40 unit SUBCUT BID Qty: 15 0RF atorvastatin 40 mg Tablet 80 mg PO BEDTIME Qty: 120 3RF clopidogrel 75 mg Tablet 75 mg PO DAILY Qty: 90 3RF aspirin 81 mg Tablet,Delayed Release (Dr/Ec) 81 mg PO DAILY Qty: 90 3RF metoprolol tartrate 50 mg Tablet 50 mg PO BID@0900,2100 Qty: 120 3RF Discharge Orders: Discharge ED (Routine); Ordered 12/22/22 Ordered By: Eric Marroquin Referrals: Karo Brooks APN [Primary Care Provider] - Patient Instructions: Paresthesia (ED) Coding Level of Care Code ED [place] [facility] for Carol Roy
--- NOTE | 2022-12-22 18:01 | ECG_ITS ---
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 Measurements Intervals [place] Rate: 82 P: 57 ID: [id number] QRS: -30 QRSD: 108 T: 17 QT: 383 QTc: 448 Interpretive Statements SINUS RHYTHM BORDERLINE LEFT AXIS DEVIATION [QRS AXIS < -20] NONSPECIFIC ST ELEVATION [0.05+ mV ST ELEVATION] Compared to ECG 10/16/2022 01:22:45 Incomplete right bundle-branch block no longer present Myocardial infarct finding no longer present ST (T wave) deviation still present Electronically Signed On 12-22-2022 23:44:11 CDT by Mary Ortiz M.D. [email or web address]
[2022-12-22 18:16] VITALS: BP 118/84; O2SAT 98
[2022-12-22 18:27] LABS: Basophils # 0.1 10^3/uL (0.0-0.1); Basophils % 0.6 %; Eosinophils # 0.2 10^3/uL (0.0-0.8); Eosinophils % 1.6 %; Hematocrit 41.3 % (37.0-47.0); Hemoglobin 12.8 g/dL (11.5-15.3); Lymphocytes # 2.5 10^3/uL (0.8-4.8); Lymphocytes % 22.9 %; Mean Corpuscular Hemoglobin 26.1 pg (28.0-34.0); Mean Corpuscular Volume 84.3 fl (81-99); Mean Platelet Volume 10.5 fL (7.4-10.4); Monocytes # 0.6 10^3/uL (0.2-0.9); Monocytes % 5.1 %; Neutrophils % 69.4 %; Nucleated Red Blood Cells % 0 %; Platelet Count 347 10^3/cmm (130-400); Red Cell Distribution Width 13.2 % (12.1-15.1)
[2022-12-22 18:28] LABS: Bilirubin Urine Neg (Negative); Blood Urine Neg (Negative); Glucose Urine UA Norm (Normal); Ketones Urine Negative (Negative); Leukocyte Esterase Urine Negative (Negative); Nitrate Urine Negative (Negative); Protein Urine Neg (Negative); Urine Appearance Hazy (CLEAR); Urine Color Yellow (Yellow); Urobilinogen Urine Neg (Negative); pH Urine 5 (5-7)
[2022-12-22 18:36] VITALS: BP 118/79; PULSE 73; O2SAT 96
[2022-12-22 18:45] LABS: Add Urine Microscopic? YES
[2022-12-22 18:50] LABS: Add Urine Culture? Yes; Bacteria Urine 4+ /hpf; Squamous Epithelial Cell Urine 0-4 /hpf (0-5); WBC Urine 0-4 /hpf (0-5)
[2022-12-22 19:07] LABS: Alanine Aminotransferase 15 U/L (0-33); Albumin Level 4.4 g/dL (3.5-5.2); Alkaline Phosphatase 126 U/L (35-105); Anion Gap 13.9 (5-19); Aspartate Amino Transferase 11 U/L (0-32); Blood Urea Nitrogen 12 mg/dL (6-20); Calcium 9.4 mg/dL (8.5-10.5); Carbon Dioxide 26 mmol/L (22-29); Chloride 97 mmol/L (98-107); Glomerular Filtration Rate 133.4 mL/min (90-130); Glucose 130 mg/dL (65-115); Magnesium 1.8 mg/dL (1.7-2.3); Osmolality Calculated 278 mOsm/kg (285-295); Potassium 3.9 mmol/L (3.5-5.1); Sodium 133 mmol/L (136-145); Total Bilirubin 0.4 mg/dL (0.15-1.2); Total Protein 7.4 g/dL (6.6-8.7)
== END 2022-12-22 19:39 | disposition home or self-care (01) ==
PROVIDERS: Emergency Provider Emergency Medicine; PCP Nurse Practitioner Family
DX: R20.2 Paresthesia of skin (principal); I10 Essential (primary) hypertension
CPT/HCPCS: 36415; 71045; 80053; 81001; 83735; 85025; 87077; 87086; 87186; 93005; 99285

== ENCOUNTER 2022-12-29 15:19 | Emergency (ER) | payer BC, SELFPAY ==
--- NOTE | 2022-12-29 15:22 | ED_ITS ---
HPI - Fall General: Chief Complaint: Fall Stated Complaint: FALL/ POSSIBLE SYNCOPE/ NECK PAIN Time Seen by Provider: 12/29/22 15:22 History of Present Illness: Ms. Melendez is a 47-year-old lady with history of heart disease s/p PCI with stent presenting to the emergency department for fall with head injury and worsening symptoms. She reports being at her baseline health and slipped out of a truck yesterday falling forward landing on her face and losing consciousness. She has about 30 minutes of amnesia regarding this event. She initially end mild head pain however now has had worsening pain with midline neck pain as well. Intensity symptoms is moderate to severe. Course has worsened. No other specific changes in health, exacerbating, or alleviating factors identified. Fall from: standing Fall witnessed: yes, by family Place fall occurred: street Loss of consciousness: Yes Length of LOC: minutes(s) Symptoms prior to fall: none Context: tripped/slipped Location of injury: head, face and back Severity: severe Quality: stabbing and aching Review of Systems General: Reports: 10 or more systems reviewed and unremarkable except in HPI and below PFSH ED PFSH: Medical History Anxiety COPD (chronic obstructive pulmonary disease) Diabetes mellitus, type II Currently diet controlled Diabetic neuropathy associated with type 2 diabetes mellitus 3 para 3 Hiatal hernia History of COVID-19 (~04/2020) with some non respiratory persistent symptoms Hx of supraventricular tachycardia ST elevation (STEMI) myocardial infarction STEMI (ST elevation myocardial infarction) Surgical History History of colonoscopy (~2016) History of esophagogastroduodenoscopy (EGD) (~2017) History of tubal ligation Family History Father Cancer lung Mother Cancer lung Social History Smoking and tobacco status: current every day smoker cigarettes Alcohol intake: current Alcohol intake frequency: holidays/special occasions only Substance/Drug Use: never Household members: spouse Marital status: Physical Exam Const: COMMON NORMALS: alert GENERAL APPEARANCE: cooperative and well developed HENMT: COMMON NORMALS: normocephalic HEAD & SCALP: normocephalic THROAT: posterior oropharynx normal OTHER: Nasal abrasion/contusion, mild periportal edema more prominent on the right. C- collar in place. No vigil signs or raccoon eyes. No otorrhea or rhinorrhea. Jaw alignment normal. Dentition baseline. No obvious bony step-offs. No septal hematoma. No evidence of ocular entrapment. Eye: COMMON NORMALS: conjunctivae normal CONJUNCTIVA: Yes conjunctivae normal SCLERA: sclerae normal Neck/C-Spine: COMMON NORMALS: supple GENERAL: Yes trachea midline OTHER: Midline tenderness palpation. C-collar in place. Resp: COMMON NORMALS: normal respiratory effort EFFORT & INSPECTION: Yes able to speak in complete sentences Cardio: COMMON NORMALS: regular rate RATE: regular rate GI: COMMON NORMALS: Soft to palpation PALPATION: Yes Soft to palpation and No Tenderness to palpation present (GI) Extremity: GENERAL: Yes normal exam except as noted and No edema Neuro: COMMON NORMALS: moves all extremities SENSORIUM/ORIENTATION: Yes alert and No Orientation impaired Psych: COMMON NORMALS: mental status grossly normal and Normal thought process present THOUGHT PROCESS: Normal thought process present Course Vital Signs: Vital signs: Vital Signs Temperature 98.3 F 12/29/22 15:29 Pulse Rate 83 12/29/22 15:53 Respiratory Rate 18 12/29/22 18:05 Blood Pressure 129/74 12/29/22 18:05 Pulse Oximetry 99 12/29/22 18:05 Oxygen Delivery Me thod Room Air 12/29/22 18:05 MDM - Fall Medical Decision Making 47-year-old lady presenting with continued symptoms after a fall with positive loss of consciousness. Exam as above. Recent labs reviewed based on clinical history I do not feel that repeat is required at this time. CTs demonstrate no acute internal injury or fractures, incidental findings including pulmonary nodules discussed with patient. Patient proved with ED treatment including fluids and migraine cocktail. Most of etiology of symptoms is severe concussion. The results of ED evaluation were discussed with the patient including prescriptions and/or symptomatic cares (if applicable) including appropriate and responsible use, followup plan, and return precautions. The patient verbalized understanding and felt safe for discharge. Medical Records I reviewed the patient's medical records. Lab Data I reviewed the patient's lab results. Radiology Impressions Cervical Spine CT 12/29/22 15:34 IMPRESSION: No acute osseous injury. Chest/Abdomen/Pelvis CT 12/29/22 15:34 IMPRESSION: 1. No acute findings. 2. 2-3 mm pulmonary nodules. For patients at low risk (minimal or absent history of smoking and of other known risk factors), no routine follow-up is indicated. For patients at high risk (history of smoking or of other known IMPRESSION: 1. No acute findings. Face CT 12/29/22 15:34 IMPRESSION: No acute findings. Head CT 12/29/22 15:34 IMPRESSION: No acute intracranial abnormality. Discharge Plan Discharge Patient Disposition: Home Clinical Impression: Concussion with loss of consciousness, Fall, Pain of neck with recent traumatic injury, Abrasion of face, Multiple pulmonary nodules Condition: Stable Prescriptions: New ondansetron 4 mg tablet,disintegrating 4 mg PO Q8H PRN (Reason: nausea and vomiting) Qty: 15 0RF oxycodone 5 mg tablet 5 mg PO Q4H PRN (Reason: pain) Qty: 10 0RF No Action Trelegy Ellipta 100-62.5-25 mcg blister with device 1 inh inhalation DAILY Qty: 60 3RF fluticasone propionate [Flonase Allergy Relief] 50 mcg/actuation spray,suspension 1 spray intranasal BID Qty: 18 3RF Rx Instructions: administer into each nostril albuterol sulfate 90 mcg/actuation HFA aerosol inhaler 2 inh INHALATION Q6H PRN (Reason: Shortness Of Breath) ipratropium-albuterol 0.5 mg-3 mg(2.5 mg base)/3 mL Solution For Nebulization 3 ml inhalation Q4H PRN (Reason: Shortness Of Breath) Qty: 90 3RF nitrofurantoin monohyd/m-cryst 100 mg capsule 100 mg PO BID pantoprazole 40 mg Tablet,Delayed Release (Dr/Ec) 40 mg PO DAILY insulin aspart U-100 [Novolog FlexPen U-100 Insulin] 100 unit/mL (3 mL) insulin pen See Protocol SUBCUT TID Qty: 15 0RF Protocol: Insulin Corrective High-Dose Regimen Condition: Fingerstick Blood Glucose Dose/Route: Insulin Units Condition: 141-180 mg/dl Dose/Route: 6 units/SQ Condition: 181-220 mg/dl Dose/Route: 8 units/SQ Condition: 221-260 mg/dl Dose/Route: 10 units/SQ Condition: 261-300 mg/dl Dose/Route: 12 units/SQ Condition: 301-350 mg/dl Dose/Route: 14 units/SQ Condition: 351-400 mg/dl Dose/Route: 16 units/SQ Condition: greater than 400 mg/dl Dose/Route: 18 units/SQ Protocol Text: 141-180 --6 units/SQ 181-220 --8 units/SQ 221-260 --10 units/SQ 261-300--12 units/SQ 301-350 --14 units/SQ 351-400 --16 units/SQ greater than 400 --18 units/SQ Levemir FlexTouch U-100 Insuln 100 unit/mL (3 mL) insulin pen 40 unit SUBCUT BID Qty: 15 0RF atorvastatin 40 mg Tablet 80 mg PO BEDTIME Qty: 120 3RF clopidogrel 75 mg Tablet 75 mg PO DAILY Qty: 90 3RF aspirin 81 mg Tablet,Delayed Release (Dr/Ec) 81 mg PO DAILY Qty: 90 3RF metoprolol tartrate 50 mg Tablet 50 mg PO BID@0900,2100 Qty: 120 3RF Discharge Orders: Discharge ED (Routine); Ordered 12/29/22 Ordered By: Drew Oabndo Referrals: Karo Brooks APN [Primary Care Provider] - Discharge Diet: Usual diet Discharge Activity: Increase activity as tolerated Patient Instructions: Concussion (ED), Head Injury (ED), Abrasion (ED), Acute Neck Pain (ED), Opioid Safety Activity Restrictions/Additional Instructions: Thank you for visiting the emergency department. You were seen and evaluated for worsening pain after head injury. No acute internal injury or bony injury was identified. The most likely cause of your symptoms is related to traumatic injury. The treatment for this is supportive. I will prescribe oxycodone, use this cautiously as discussed. You may use [id number] medications such as acetaminophen and ibuprofen for pain however please do not exceed the daily recommended dosage as listed on the packaging and please keep in mind that many namebrand medications contain the same active ingredients. Please avoid these medications if previously instructed to do so by another physician due to other underlying medical condition. Gentle return to normal activity is recommended. Please follow-up with a primary care provider. As discussed you do have incidental pulmonary nodules with recommended optional CT chest in 12 months to ensure stability. This can be arranged by your primary care provider. Return to the emergency department for uncontrolled symptoms or anything else that you are concerned about and feel needs emergency department evaluation. Stand Alone Forms: Work/School Release Coding Level of Care Code ED [employer] for Carol Roy
[2022-12-29 15:29] VITALS: BP 166/97; PULSE 90; RESP 16; TEMP 36.8; O2SAT 99
--- NOTE | 2022-12-29 15:34 | CTR_ITS ---
PROCEDURE INFORMATION: Exam: CT Chest With Contrast; Diagnostic Exam date and time: 12/29/2022 4:24 PM Age: 47 years old Clinical indication: Injury or trauma; Fall; Generalized; Blunt trauma (contusions or hematomas); Prior surgery; Surgery date: 6+ months; Surgery type: Tubal, stent; Additional info: Fall, loc, n/v TECHNIQUE: Imaging protocol: Diagnostic computed tomography of the chest with contrast. Radiation optimization: All CT scans at this facility use at least one of these dose optimization techniques: automated exposure control; mA and/or kV adjustment per patient size (includes targeted exams where dose is matched to clinical indication); or iterative reconstruction. Contrast material: OMNI 350; Contrast volume: 100 ml; Contrast route: INTRAVENOUS (IV); REPORTING DATA: Count of CT and Cardiac NM exams in prior 12 months: This patient has received 3 known CTs and 0 known cardiac nuclear medicine studies in the 12 months prior to the current study. COMPARISON: CT angio chest PE protcl [id number] 02/27/2021 9:04 AM RADIATION DOSE METRICS: Total DLP (mGy-cm): 1129.19 FINDINGS: Lungs: Multiple 2-3 mm nodules in the left lung. Mild scattered atelectasis. Pleural spaces: Unremarkable. No pneumothorax. No pleural effusion. Heart: Unremarkable. No cardiomegaly. No pericardial effusion. Lymph nodes: Unremarkable. No enlarged lymph nodes. Vasculature: Unremarkable. No aortic aneurysm. Bones/joints: Mild degenerative endplate changes in the thoracic spine. No fracture. Soft tissues: Unremarkable. risk factors), consider optional CT Chest at 12 months. (Reference: Jose) References: Jose Miranda, et al. Guidelines for Management of Incidental Pulmonary Nodules Detected on CT Images: From the Fleischner Society 2017. Radiology. 2017;284(1):228-243. PROCEDURE INFORMATION: Exam: CT Abdomen And Pelvis With Contrast Exam date and time: 12/29/2022 4:24 PM Age: 47 years old Clinical indication: Injury or trauma; Fall; Generalized; Blunt trauma (contusions or hematomas); Prior surgery; Surgery date: 6+ months; Surgery type: Tubal, stent; Additional info: Fall, loc, n/v TECHNIQUE: Imaging protocol: Computed tomography of the abdomen and pelvis with contrast. Radiation optimization: All CT scans at this facility use at least one of these dose optimization techniques: automated exposure control; mA and/or kV adjustment per patient size (includes targeted exams where dose is matched to clinical indication); or iterative reconstruction. Contrast material: OMNI 350; Contrast volume: 100 ml; Contrast route: INTRAVENOUS (IV); REPORTING DATA: Count of CT and Cardiac NM exams in prior 12 months: This patient has received 3 known CTs and 0 known cardiac nuclear medicine studies in the 12 months prior to the current study. COMPARISON: CT abdomen pelvis wo con [id number] 03/24/2017 7:13 PM RADIATION DOSE METRICS: Total DLP (mGy-cm): 1126.19 FINDINGS: Liver: Normal. No mass. Gallbladder and bile ducts: Normal. No calcified stones. No ductal dilation. Pancreas: Normal. No ductal dilation. Spleen: Normal. No splenomegaly. Adrenal glands: Normal. No mass. Kidneys and ureters: Normal. No hydronephrosis. Stomach and bowel: Unremarkable. No obstruction. No mucosal thickening. Appendix: The appendix is visualized and is normal. Intraperitoneal space: Trace pelvic ascites is most likely physiologic. No free peritoneal air. Vasculature: Unremarkable. No abdominal aortic aneurysm. Lymph nodes: Unremarkable. No enlarged lymph nodes. Urinary bladder: Unremarkable as visualized. Reproductive: Unremarkable as visualized. Bones/joints: Unremarkable. No acute fracture. Soft tissues: Unremarkable. CT/CT chest abdpel w/*[id number] IMPRESSION: 1. No acute findings. 2. 2-3 mm pulmonary nodules. For patients at low risk (minimal or absent history of smoking and of other known risk factors), no routine follow-up is indicated. For patients at high risk (history of smoking or of other known IMPRESSION: 1. No acute findings.
--- NOTE | 2022-12-29 15:34 | CTR_ITS ---
PROCEDURE INFORMATION: Exam: CT Head Without Contrast Exam date and time: 12/29/2022 4:13 PM Age: 47 years old Clinical indication: Injury or trauma; Fall; Bleeding/hemorrhage; Additional info: Fall, loc, headache TECHNIQUE: Imaging protocol: Computed tomography of the head without contrast. Radiation optimization: All CT scans at this facility use at least one of these dose optimization techniques: automated exposure control; mA and/or kV adjustment per patient size (includes targeted exams where dose is matched to clinical indication); or iterative reconstruction. REPORTING DATA: Count of CT and Cardiac NM exams in prior 12 months: This patient has received 3 known CTs and 0 known cardiac nuclear medicine studies in the 12 months prior to the current study. COMPARISON: MR head wo con* [id number] 09/09/2021 3:57 PM RADIATION DOSE METRICS: Total DLP (mGy-cm): 1105.55 FINDINGS: Brain: Normal. No hemorrhage. Unremarkable white matter. No mass effect. Stable prominent perivascular space left basal ganglia. Cerebral ventricles: No ventriculomegaly. Paranasal sinuses: Visualized sinuses are unremarkable. No fluid levels. Mastoid air cells: Visualized mastoid air cells are well aerated. Bones/joints: Unremarkable. No acute fracture. Soft tissues: Unremarkable. CT/CT head wo con* [id number] IMPRESSION: No acute intracranial abnormality.
--- NOTE | 2022-12-29 15:34 | CTR_ITS ---
PROCEDURE INFORMATION: Exam: CT Cervical Spine Without Contrast Exam date and time: 12/29/2022 4:19 PM Age: 47 years old Clinical indication: Injury or trauma; Fall; Blunt trauma; Additional info: Fall, neck pain, loc TECHNIQUE: Imaging protocol: Computed tomography of the cervical spine without contrast. Radiation optimization: All CT scans at this facility use at least one of these dose optimization techniques: automated exposure control; mA and/or kV adjustment per patient size (includes targeted exams where dose is matched to clinical indication); or iterative reconstruction. REPORTING DATA: Count of CT and Cardiac NM exams in prior 12 months: This patient has received 3 known CTs and 0 known cardiac nuclear medicine studies in the 12 months prior to the current study. COMPARISON: CT facial bones wo con* [id number] 12/29/2022 4:16 PM RADIATION DOSE METRICS: Total DLP (mGy-cm): 251.17 FINDINGS: Bones/joints: The cervical spine is straightened which may be positional or related to spasm. No acute fracture. Multilevel degenerative changes are present. No severe spinal canal stenosis. Lungs: Lung apices are normal. Soft tissues: Unremarkable. CT/CT cervical spin wo con* [id number] IMPRESSION: No acute osseous injury.
--- NOTE | 2022-12-29 15:34 | CTR_ITS ---
PROCEDURE INFORMATION: Exam: CT Maxillofacial Without Contrast Exam date and time: 12/29/2022 4:16 PM Age: 47 years old Clinical indication: Injury or trauma; Fall; Blunt trauma (contusions or hematomas); Forehead and nose; Additional info: Fall, eye pain/swelling, loc TECHNIQUE: Imaging protocol: Computed tomography of the face without contrast. Radiation optimization: All CT scans at this facility use at least one of these dose optimization techniques: automated exposure control; mA and/or kV adjustment per patient size (includes targeted exams where dose is matched to clinical indication); or iterative reconstruction. REPORTING DATA: Count of CT and Cardiac NM exams in prior 12 months: This patient has received 3 known CTs and 0 known cardiac nuclear medicine studies in the 12 months prior to the current study. COMPARISON: CT head wo con* [id number] 12/29/2022 4:13 PM RADIATION DOSE METRICS: Total DLP (mGy-cm): 554.95 FINDINGS: Orbital cavities: Orbits are normal. Globes are unremarkable. Bones/joints: No acute fracture. Nondisplaced likely chronic fracture of the anterior aspect of the bony nasal septum. No overlying soft tissue swelling is seen in this region. Paranasal sinuses: Normal. No air-fluid levels. Soft tissues: Unremarkable. CT/CT facial bones wo con* [id number] IMPRESSION: No acute findings.
[2022-12-29] MEDS: ondansetron 2 mg/ML SDV 2 mL 4 MG IVP (15:48)
[2022-12-29] MEDS: fentaNYL 50 mcg/mL INJ 2mL IVP (15:48)
[2022-12-29 15:53] VITALS: BP 129/87; PULSE 83; O2SAT 99
[2022-12-29] MEDS: iohexol 350 mg/mL 500 mL Btl (per mL) IV (16:49)
[2022-12-29 17:09] VITALS: BP 119/74
[2022-12-29] MEDS: sodium chloride 0.9% 1,000 ML 999 ML IV (17:32)
[2022-12-29] MEDS: ketorolac 30 mg/mL INJ 15 MG IVP (17:33)
[2022-12-29] MEDS: diphenhydrAMINE 50 mg/mL SDV 1mL 12.5 MG IVP (17:33)
[2022-12-29] MEDS: metoclopramide 5 mg/mL SDV 2 mL 10 MG IVP (17:33)
[2022-12-29 18:05] VITALS: BP 129/74; RESP 18; O2SAT 99
== END 2022-12-29 20:07 | disposition home or self-care (01) ==
PROVIDERS: Emergency Provider Emergency Medicine; PCP Nurse Practitioner Family
DX: S06.0X9A Concussion with loss of consciousness of unspecified duration, initial encounter (principal); M54.2 Cervicalgia; S00.81XA Abrasion of other part of head, initial encounter; R91.8 Other nonspecific abnormal finding of lung field; Z79.82 Long term (current) use of aspirin; Z79.02 Long term (current) use of antithrombotics/antiplatelets; Z79.4 Long term (current) use of insulin; S00.33XA Contusion of nose, initial encounter; F17.210 Nicotine dependence, cigarettes, uncomplicated; J44.9 Chronic obstructive pulmonary disease, unspecified; E11.9 Type 2 diabetes mellitus without complications; I25.2 Old myocardial infarction; W17.89XA Other fall from one level to another, initial encounter
CPT/HCPCS: 70450; 70486; 71260; 72125; 74177; 96374; 96375; 99285; J1200; J1885; J2405; J2765; J3010; J7030; Q9967

== ENCOUNTER 2023-10-08 17:53 | Emergency (ER) | payer SELFPAY ==
[2023-10-08 17:59] VITALS: BP 138/85; PULSE 102; RESP 15; TEMP 37.1; O2SAT 99; BMI 32.9
--- NOTE | 2023-10-08 18:02 | ECG_ITS ---
[facility] Test Date: 2023-10-08 Pat Name: Chelsy Melendez Department: Room: Gender: Female Staff Psychiatrist: : 1975 Requested By: Ami Haddad Order Number: [id number] Dio MD: Diogo Grigsby M.D. Measurements Intervals [place]ow Rate: 104 P: 64 CA: 158 QRS: -20 QRSD: 104 T: 52 QT: 337 QTc: 445 Interpretive Statements SINUS TACHYCARDIA ABNORMAL RHYTHM ECG Compared to ECG 12/22/2022 18:01:11 Sinus rhythm no longer present ST (T wave) deviation no longer present Electronically Signed On 10-09-2023 6:50:22 OPERATIONS TEAM LEADER by Diogo Grigsby M.D. [id number]
--- NOTE | 2023-10-08 18:16 | XRR_ITS ---
PROCEDURE INFORMATION: Exam: XR Chest Exam date and time: 10/08/2023 6:49 PM Age: 48 years old Clinical indication: Chest wall pain; Additional info: Cp TECHNIQUE: Imaging protocol: Radiologic exam of the chest. Views: 1 view. COMPARISON: CT chest abdpel w/*[id number] 12/29/2022 4:24 PM FINDINGS: Lungs: Unremarkable. No consolidation. Pleural spaces: Unremarkable. No pleural effusion. No pneumothorax. Heart/Mediastinum: Unremarkable. No cardiomegaly. Bones/joints: Unremarkable. XR/XR chest 1V portable [id number] IMPRESSION: No acute findings.
[2023-10-08 18:38] VITALS: BP 141/89; PULSE 94; O2SAT 99
[2023-10-08 18:50] LABS: Basophils # 0.1 10^3/uL (0.0-0.1); Basophils % 0.7 %; Eosinophils # 0.3 10^3/uL (0.0-0.8); Eosinophils % 2.7 %; Hematocrit 34.9 % (36-47); Lymphocytes # 2.2 10^3/uL (0.8-4.8); Lymphocytes % 19.1 %; Mean Corpuscular HGB Conc 30.4 g/dL (30-55); Mean Corpuscular Hemoglobin 23.7 pg (27-33); Mean Corpuscular Volume 78.1 fl (85-98); Mean Platelet Volume 10.4 fL (7.4-10.4); Monocytes # 0.6 10^3/uL (0.2-0.9); Monocytes % 5.3 %; Neutrophils # 8.11 10^3/uL (1.8-7.7); Neutrophils % 71.8 %; Nucleated Red Blood Cells % 0 %; Platelet Count 289 10^3/cmm (157-399); Red Blood Count 4.47 10^6/uL (3.85-5.65); Red Cell Distribution Width 16.3 % (12.1-15.1); White Blood Count 11.29 10^3/uL (3.29-11.43)
--- NOTE | 2023-10-08 19:04 | ED_ITS ---
HPI - Chest Pain 2 General: Chief Complaint: Chest Pain Stated Complaint: chest pain Time Seen by Provider: 10/08/23 18:41 Source: patient Mode of arrival: ambulatory History of Present Illness: 48-year-old female states she has been h aving chest pain the last 2 days she has pain in the left chest she rates her pain a 2 out of 10 currently denies any shortness of breath did have a history of stents a year ago denies any vomiting or diarrhea. Associated symptoms: Deny abdominal pain, dyspnea, fever(s), nausea or vomiting Review of Systems 2 Const: Denies: fever(s), chills, body aches or change in appetite Eyes: Denies: blurry vision or eye discomfort ENMT: Denies: throat pain or dental pain Card: Reports: chest pain Resp: Denies: dyspnea GI: Denies: abdominal pain, nausea, vomiting or diarrhea Musc: Denies: neck pain or back pain Skin/Breast: Denies: rash Neuro: Denies: headache(s) PFSH ED 2 PFSH: Medical History ST elevation (STEMI) myocardial infarction STEMI (ST elevation myocardial infarction) Diabetic neuropathy associated with type 2 diabetes mellitus COPD (chronic obstructive pulmonary disease) 3 para 3 History of COVID-19 (~04/2020) with some non respiratory persistent symptoms Hiatal hernia Hx of supraventricular tachycardia Anxiety Diabetes mellitus, type II Currently diet controlled Surgical History History of colonoscopy (~2016) History of esophagogastroduodenoscopy (EGD) (~2016) History of tubal ligation Family History Father Cancer lung Mother Cancer lung Social History Smoking and tobacco/nicotine status: current every day tobacco/nicotine user cigarettes Alcohol intake: current Alcohol intake frequency: holidays/special occasions only Substance/Drug Use: never Household members: spouse Marital status: Physical Exam 2 Const: COMMON NORMALS: no acute distress, patient oriented x3 and healthy appearing HENMT: COMMON NORMALS: normocephalic and atraumatic HEAD & SCALP: n ormocephalic and atraumatic Eye: COMMON NORMALS: Equal, round and reactive pupils present and EOMs intact bilaterally PUPIL: Yes Equal, round and reactive pupils present Neck/C-Spine: COMMON NORMALS: full ROM and supple Chest: COMMONS NORMALS: normal inspection of the chest and normal palpation of entire chest wall Resp: COMMON NORMALS: normal respiratory effort, No retractions, No use of accessory muscles and clear to auscultation bilaterally AUSCULTATION: clear to auscultation bilaterally Cardio: COMMON NORMALS: regular rate, regular rhythm and No murmurs present (Cardio) RATE: regular rate RHYTHM: regular rhythm GI: COMMON NORMALS: Normal to inspection, nondistended, normoactive bowel sounds present, Soft to palpation, non-tender and no masses PALPATION: Yes Soft to palpation Extremity: COMMON NORMALS: normal to inspection and full ROM Neuro: COMMON NORMALS: patient oriented x3, moves all extremities and no focal motor deficits Psych: COMMON NORMALS: mental status grossly normal, Normal thought process present and cooperative THOUGHT PROCESS: Normal thought process present Skin: COMMON NORMALS: no rashes or lesions noted and no wounds GENERAL SKIN EXAM: no rashes or lesions noted Course 2 Vital Signs: Vital signs: Vital Signs Temperature 98.7 F 10/08/23 17:59 Pulse Rate 94 10/08/23 20:44 Respiratory Rate 15 10/08/23 17:59 Blood Pressure 128/77 10/08/23 20:44 Pulse Oximetry 97 10/08/23 20:44 Oxygen Delivery Me thod Room Air 10/08/23 20:44 MDM - Chest Pain Medical Decision Making Patient presents here with chest pains atypical in nature troponins here are negative she has no signs of pulmonary embolism she has no signs of dissection she is stable for discharge she is follow-up with PCP and return if worsening she understands agrees to plan. Medical Records I reviewed the patient's medical records. Lab Data I reviewed the patient's lab results. 10/08/23 18:42 10/08/23 18:42 Laboratory Results WBC 11.29 10^3/uL (3.29-11.43) 10/08/23 18:42 RBC 4.47 10^6/uL (3.85-5.65) 10/08/23 18:42 Hgb 10.60 g/dL (11.27-16.99) L 10/08/23 18:42 Hct 34.9 % (36-47) L 10/08/23 18:42 MCV 78.1 fl (85-98) L 10/08/23 18:42 MCH 23.7 pg (27-33) L 10/08/23 18:42 MCHC 30.4 g/dL (30-55) 10/08/23 18:42 RDW 16.3 % (12.1-15.1) H 10/08/23 18:42 Plt Count 289 10^3/cmm (157-399) 10/08/23 18:42 MPV 10.4 fL (7.4-10.4) 10/08/23 18:42 Neut % (Auto) 71.8 % 10/08/23 18:42 Lymph % (Auto) 19.1 % 10/08/23 18:42 [place] % (Auto) 5.3 % 10/08/23 18:42 Eos % (Auto) 2.7 % 10/08/23 18:42 Baso % (Auto) 0.7 % 10/08/23 18:42 Neut # (Auto) 8.11 10^3/uL (1.8-7.7) H 10/08/23 18:42 Lymph # (Auto) 2.2 10^3/uL (0.8-4.8) 10/08/23 18:42 [place] # (Auto) 0.6 10^3/uL (0.2-0.9) 10/08/23 18:42 Eos # (Auto) 0.3 10^3/uL (0.0-0.8) 10/08/23 18:42 Baso # (Auto) 0.1 10^3/uL (0.0-0.1) 10/08/23 18:42 Nucleated RBC % (auto) 0 % 10/08/23 18: Nucleated RBCs # 0.0 /100WBC 10/08/23 18:42 PT 12.40 SECONDS (12.1-14.9) 10/08/23 18:42 INR 0.90 (0.8-1.2) 10/08/23 18:42 Sodium 137 mmol/L (136-145) 10/08/23 18:42 Potassium 4.5 mmol/L (3.5-5.1) 10/08/23 18:42 Chloride 101 mmol/L (98-107) 10/08/23 18:42 Carbon Dioxide 21 mmol/L (22-29) L 10/08/23 18:42 Anion Gap 19.5 (5-19) H 10/08/23 18:42 BUN 11 mg/dL (6-20) 10/08/23 18:42 Creatinine 0.6 mg/dL (0.5-0.9) 10/08/23 18:42 GFR Calculation 107.6 mL/min (90-130) 10/08/23 18:42 Glucose 272 mg/dL (65-115) H 10/08/23 18:42 Calculated Osmolality 293 mOsm/kg (285-295) 10/08/23 18:42 Calcium 9.5 mg/dL (8.5-10.5) 10/08/23 18:42 Total Bilirubin 0.2 mg/dL (0.15-1.2) 10/08/23 18:42 AST 10 U/L (0-32) 10/08/23 18:42 ALT 10 U/L (0-33) 10/08/23 18:42 Alkaline Phosphatase 142 U/L (35-105) H 10/08/23 18:42 Troponin T Baseline < 6 ng/L (0-10) 10/08/23 18:42 Troponin T 120 Minute 6.08 ng/L (0-10) 10/08/23 20:21 Delta Troponin T 0.92042 ABS# (0-10) 10/08/23 20:21 Total Protein 6.6 g/dL (6.6-8.7) 10/08/23 18:42 Albumin 3.9 g/dL (3.5-5.2) 10/08/23 18:42 Globulin 2.7 g/dL (1.3-4.6) 10/08/23 18:42 Lipase 21 U/L (13-60) 10/08/23 18:42 All radiology interpretation(s) finalized by discharge EKG Data EKG 1: I personally reviewed and interpreted this EKG as follows: EKG interpretation date: 10/08/23 EKG interpretation time: 18:02 Interpretation: sinus tach hr [address] or t wave abormalities qrs 104 qtc 398 EKG 2: I personally reviewed and interpreted this EKG as follows: EKG interpretation date: 10/08/23 EKG interpretation time: 19:07 Interpretation: nsr hr [address] or t wave abnormalities qrs 20 qtc 3 Discharge Plan Discharge Patient Disposition: Home Clinical Impression: Chest pain Condition: Stable Prescriptions: No Action Trelegy Ellipta 100-62.5-25 mcg blister with device 1 inh inhalation DAILY Qty: 60 3RF fluticasone propionate [Flonase Allergy Relief] 50 mcg/actuation spray,suspension 1 spray intranasal BID Qty: 18 3RF Rx Instructions: administer into each nostril albuterol sulfate 90 mcg/actuation HFA aerosol inhaler 2 inh INHALATION Q6H PRN (Reason: Shortness Of Breath) ipratropium-albuterol 0.5 mg-3 mg(2.5 mg base)/3 mL Solution For Nebulization 3 ml inhalation Q4H PRN (Reason: Shortness Of Breath) Qty: 90 3RF nitrofurantoin monohyd/m-cryst 100 mg capsule 100 mg PO BID ondansetron 4 mg tablet,disintegrating 4 mg PO Q8H PRN (Reason: nausea and vomiting) Qty: 15 0RF oxycodone 5 mg tablet 5 mg PO Q4H PRN (Reason: pain) Qty: 10 0RF pantoprazole 40 mg Tablet,Delayed Release (Dr/Ec) 40 mg PO DAILY insulin aspart U-100 [Novolog FlexPen U-100 Insulin] 100 unit/mL (3 mL) insulin pen See Protocol SUBCUT TID Qty: 15 0RF Protocol: Insulin Corrective High-Dose Regimen Condition: Fingerstick Blood Glucose Dose/Route: Insulin Units Condition: 141-180 mg/dl Dose/Route: 6 units/SQ Condition: 181-220 mg/dl Dose/Route: 8 units/SQ Condition: 221-260 mg/dl Dose/Route: 10 units/SQ Condition: 261-300 mg/dl Dose/Route: 12 units/SQ Condition: 301-350 mg/dl Dose/Route: 14 units/SQ Condition: 351-400 mg/dl Dose/Route: 16 units/SQ Condition: greater than 400 mg/dl Dose/Route: 18 units/SQ Protocol Text: 141-180 --6 units/SQ 181-220 --8 units/SQ 221-260 --10 units/SQ 261-300--12 units/SQ 301-350 --14 units/SQ 351-400 --16 units/SQ greater than 400 --18 units/SQ Levemir FlexTouch U100 Insulin 100 unit/mL (3 mL) insulin pen 40 unit SUBCUT BID Qty: 15 0RF atorvastatin 40 mg Tablet 80 mg PO BEDTIME Qty: 120 3RF clopidogrel 75 mg Tablet 75 mg PO DAILY Qty: 90 3RF aspirin 81 mg Tablet,Delayed Release (Dr/Ec) 81 mg PO DAILY Qty: 90 3RF metoprolol tartrate 50 mg Tablet 50 mg PO BID@0900,2100 Qty: 120 3RF Discharge Orders: Discharge ED (Routine); Ordered 10/08/23 Ordered By: Ami Haddad Referrals: Karo Brooks APN [Primary Care Provider] - 1-3 days Discharge Diet: Advance as tolerated Discharge Activity: Resume usual activity Patient Instructions: Chest Pain (ED) Coding Level of Care Code ED Slasher Operator for Carol Roy
[2023-10-08 19:38] VITALS: BP 130/86; PULSE 93; O2SAT 97
[2023-10-08 20:00] LABS: Troponin(5th) Baseline < 6 ng/L (0-10)
[2023-10-08 20:04] LABS: Alanine Aminotransferase 10 U/L (0-33); Albumin Level 3.9 g/dL (3.5-5.2); Alkaline Phosphatase 142 U/L (35-105); Anion Gap 19.5 (5-19); Aspartate Amino Transferase 10 U/L (0-32); Blood Urea Nitrogen 11 mg/dL (6-20); Calcium 9.5 mg/dL (8.5-10.5); Carbon Dioxide 21 mmol/L (22-29); Chloride 101 mmol/L (98-107); Globulin 2.7 g/dL (1.3-4.6); Glomerular Filtration Rate 107.6 mL/min (90-130); Glucose 272 mg/dL (65-115); Lipase 21 U/L (13-60); Osmolality Calculated 293 mOsm/kg (285-295); Potassium 4.5 mmol/L (3.5-5.1); Sodium 137 mmol/L (136-145); Total Bilirubin 0.2 mg/dL (0.15-1.2); Total Protein 6.6 g/dL (6.6-8.7)
--- NOTE | 2023-10-08 20:16 | ECG_ITS ---
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 Measurements Intervals [place] Rate: 97 P: 50 GA: 155 QRS: -19 QRSD: 109 T: 43 QT: 337 QTc: 429 Interpretive Statements SINUS RHYTHM LOW QRS VOLTAGE IN PRECORDIAL LEADS [QRS DEFLECTION < 1.0 mV IN CHEST LEADS] PATTERN CONSISTENT WITH PULMONARY DISEASE Compared to ECG 10/08/2023 18:02:51 Low QRS voltage now present Sinus tachycardia no longer present Electronically Signed On 10-09-2023 6:54:52 BROADCAST CORRESPONDENT by Diogo Grigsby M.D. [email or web address]
[2023-10-08 20:43] LABS: Troponin 5 2HR 6.08 ng/L (0-10); Troponin 5 2HR Delta 0.08001 ABS# (0-10)
[2023-10-08 20:44] VITALS: BP 128/77; PULSE 94; O2SAT 97
== END 2023-10-08 21:08 | disposition home or self-care (01) ==
PROVIDERS: Emergency Provider Emergency Medicine; PCP Nurse Practitioner Family
DX: R07.9 Chest pain, unspecified (principal); Z79.02 Long term (current) use of antithrombotics/antiplatelets; Z79.82 Long term (current) use of aspirin; Z79.4 Long term (current) use of insulin; F17.210 Nicotine dependence, cigarettes, uncomplicated; I25.2 Old myocardial infarction; E11.42 Type 2 diabetes mellitus with diabetic polyneuropathy; J44.9 Chronic obstructive pulmonary disease, unspecified
CPT/HCPCS: 36415; 71045; 80053; 83690; 84484; 85025; 85610; 93005; 99285

== ENCOUNTER 2024-05-02 12:20 | Emergency (ER) | payer SELFPAY ==
[2024-05-02 12:26] VITALS: BP 145/80; PULSE 107; TEMP 36.5; O2SAT 98; BMI 31.8
[2024-05-02 12:33] VITALS: BP 112/94; PULSE 100; RESP 18; O2SAT 95
--- NOTE | 2024-05-02 12:37 | XRR_ITS ---
PROCEDURE INFORMATION: Exam: XR Chest Exam date and time: 05/02/2024 12:41 PM Age: 48 years old Clinical indication: Other: Epigatric pain; Prior surgery; Surgery date: 6+ months; Surgery type: Cardiac stent; Additional info: Cp/epigatric pain TECHNIQUE: Imaging protocol: Radiologic exam of the chest. Views: 1 view. COMPARISON: CR XR chest 1V portable [id number] 10/08/2023 6:49 PM FINDINGS: Lungs: Platelike opacity in the right mid lung. Otherwise clear. Pleural spaces: Unremarkable. No pleural effusion. No pneumothorax. Heart/Mediastinum: Unremarkable. No cardiomegaly. Bones/joints: Unremarkable. XR/XR chest 1V portable [id number] IMPRESSION: Platelike opacity in the right mid lung may represent scarring versus subsegmental atelectasis. Infection less likely although not excluded.
--- NOTE | 2024-05-02 12:37 | ECG_ITS ---
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 Measurements Intervals [place] Rate: 106 P: 49 UT: 136 QRS: -28 QRSD: 102 T: 41 QT: 350 QTc: 465 Interpretive Statements SINUS TACHYCARDIA POSSIBLE LEFT ATRIAL ENLARGEMENT [-0.1mV P-WAVE IN V1/V2] BORDERLINE LEFT AXIS DEVIATION [QRS AXIS < -20] Compared to ECG 10/08/2023 19:07:19 Sinus rhythm no longer present Electronically Signed On 05-02-2024 14:09:11 CDT by Honorio Garcia M.D. [email or web address]
--- NOTE | 2024-05-02 12:38 | ED_ITS ---
HPI - Abdominal Pain 2 General: Chief Complaint: Abdominal Pain Stated Complaint: abd pain, n/v, Time Seen by Provider: 05/02/24 12:27 Source: patient Mode of arrival: ambulatory Limitations: no limitations History of Present Illness: This patient made her way to the emergency room this morning because of epigastric pain that began approximately 30 minutes after eating crackers this morning. She states over the past 3 days she has been sick with nausea vomiting and diarrhea but did not have any epigastric or other abdominal pains throughout this illness. She states she felt much better when she woke up this morning that she has over the past 3 days and proceeded to start doing some housework and then ate some saltine crackers prior to the onset of recurrent symptoms. She states that no one has been ill at home but children started school this past week and certainly could be a potential source of acute illness. She denies any current fevers or shortness of breath. She has a history of coronary disease had a stent placed approximately 2 years ago and took Plavix for 1 year. The only medication she currently takes is 81 mg of aspirin-she states that she does not take any other prescribed medications as she has no insurance.. She denies history of acid reflux peptic ulcer disease etc. She denies history of pancreatitis, gallbladder disease etc. She states the pain is in in the epigastrium and comes in waves. She denies any ripping or tearing type pain. She is a tobacco user. Pain Consistency: intermittent Radiation: epigastric Associated Symptoms: Denies chills, dysuria, fever(s), hematochezia and melena Related Data Previous Rx's Medication Instructions Recorded aspirin 81 mg tablet,delayed 81 mg PO DAILY #90 tabs 10/12/22 release Allergies Allergy/AdvReac Type Severity Reaction Status Date / Time codeine Allergy ADR-Nightma Verified 05/02/24 12:33 re Influenza Virus Vaccines Allergy ADR-Vomitin Verified 05/02/24 12:33 g Review of Systems 2 Const: Denies: fever(s) or chills ENMT: Denies: odynophagia, nasal discharge or nasal congestion Card: Denies: chest pain, palpitations or irregular heart rhythm Resp: Denies: dyspnea, productive cough or non-productive cough GI: Reports: abdominal pain; Denies: hematochezia or melena : Denies: flank pain, difficulty voiding, dysuria or urinary frequency Musc: Denies: neck pain, back pain, extremity pain or extremity swelling Skin/Breast: Denies: rash Neuro: Denies: headache(s), numbness in extremities or weakness in extremities PFSH ED 2 PFSH: Medical History ST elevation (STEMI) myocardial infarction STEMI (ST elevation myocardial infarction) Diabetic neuropathy associated with type 2 diabetes mellitus COPD (chronic obstructive pulmonary disease) 3 para 3 History of COVID-19 (~04/2020) with some non respiratory persistent symptoms Hiatal hernia Hx of supraventricular tachycardia Anxiety Diabetes mellitus, type II Currently diet controlled Surgical History History of colonoscopy (~2016) History of esophagogastroduodenoscopy (EGD) (~2016) History of tubal ligation Family History Father Cancer lung Mother Cancer lung Social History Smoking and tobacco/nicotine status: current every day tobacco/nicotine user cigarettes Alcohol intake: current Alcohol intake frequency: holidays/special occasions only Substance/Drug Use: never Household members: spouse Marital status: Physical Exam 2 Narrative: EXAM NARRATIVE: The patient's alert and responds appropriately to questions. She has occasional spasms of epigastric pain that interrupted conversation. Const: COMMON NORMALS: average body habitus, patient oriented x3, healthy appearing and alert GENERAL APPEARANCE: cooperative HENMT: COMMON NORMALS: atraumatic, Normal nasal mucous membranes and turbinates present, moist oral mucous membranes and oropharynx normal HEAD & SCALP: atraumatic NOSE: Normal nasal mucous membranes and turbinates present Eye: COMMON NORMALS: Equal, round and reactive pupils present, EOMs intact bilaterally and conjunctivae normal CONJUNCTIVA: Yes conjunctivae normal P UPIL: Yes Equal, round and reactive pupils present Neck/C-Spine: COMMON NORMALS: full ROM, Thyroid normal and No carotid bruits THYROID: Thyroid normal Chest: COMMONS NORMALS: normal inspection of the chest Resp: COMMON NORMALS: normal respiratory effort, No retractions and No use of accessory muscles AUSCULTATION: wheezes (Scattered predominantly intermittent) expiratory wheezes Cardio: COMMON NORMALS: regular rate, regular rhythm, No murmurs present (Cardio) and Peripheral pulses 2+ throughout RATE: regular rate RHYTHM: r egular rhythm PERIPHERAL PULSES: Peripheral pulses 2+ throughout GI: COMMON NORMALS: No hepatosplenomegaly present, no masses and no bruits PALPATION: Yes No hepatosplenomegaly present OTHER: Tenderness in the left upper abdomen as well as into the epigastrium. No right upper quadrant tenderness no other abdominal tenderness rebound guarding etc. Back/Pelvis: COMMON NORMALS: thoracic and lumbar spine normal to inspection and thoraco-lumbar ROM normal OTHER: Axial spine is normal to appearance and normal range of motion. She does have tenderness in the Vertebral soft tissues of the mid thoracic region. Extremity: COMMON NORMALS: normal to inspection, full ROM, capillary refill normal, no calf tenderness and no pedal edema Neuro: COMMON NORMALS: patient oriented x3, moves all extremities, no focal motor deficits and no sensory deficits noted SENSORIUM/ORIENTATION: Yes alert Psych: COMMON NORMALS: mental status grossly normal Skin: COMMON NORMALS: no rashes or lesions noted and turgor normal GENERAL SKIN EXAM: no rashes or lesions noted and turgor normal Course 2 Reevaluation(s): Reevaluation #1: Patient states she is feeling considerably better after medications. We again reviewed her current medications which include only 81 mg of aspirin daily. She does not take any other for previously prescribed medicines. She plans on reestablishing with the clinic next week in [place]. She also relates that she did have a similar episode of pain yesterday that was short of 2 and improved after she took a hot bath. She also relates that she is the only 1 in her family that still has a gallbladder. Given her transaminases and alk phos elevation and current symptoms suggestive of biliary colic will going proceed with a gallbladder ultrasound. Initial EKG and troponin are reassuring. Time: 13:37 Reevaluation #2: Patient remains stable without any discomfort she is not having more emesis or pain or other issues since last interaction. Vital signs remained stable. No new or focal findings on repeat evaluation. Gallbladder ultrasound reassuring. Serial biomarkers are also reassuring as well as serial EKGs. Discussed current findings their limitations and implications and return precautions with the patient. She voices understanding and was appreciative of care. Time: 15:56 Vital Signs: Vital signs: Vital Signs Temperature 97.7 F 05/02/24 12:26 Pulse Rate 100 05/02/24 12:33 Respiratory Rate 22 H 05/02/24 12:50 Blood Pressure 112/94 05/02/24 12:33 Pulse Oximetry 95 05/02/24 12:33 Oxygen Delivery Me thod Room Air 05/02/24 12:33 MDM - Abdominal Pain Medical Decision Making This patient presented to the emergency department as noted in the HPI. She has had a what sounds like her gastrointestinal related illness for the past 3 days with malaise nausea vomiting and diarrhea. No bloody emesis or bloody stools. No known fever or no known other contributing factors to her illness. She does have a known history of coronary artery disease as well as diabetes. She takes no medications currently other than 81 mg aspirin. Her clinical exam revealed her to be a bit uncomfortable with epigastric discomfort and a examination which confirmed epigastric and left upper quadrant tenderness to palpation without any peritoneal signs. Initial evaluation focused on laboratories to evaluate for ACS, or other potential biochemical perturbations. EKG and chest x-ray were also obtained to evaluate her. Initial findings were reassuring and that their troponin was below the URL and her EKG was reassuring. Repeat troponin and EKGs were also negative for any significant change. Other studies noted slight elevation in transaminases with a normal total bilirubin and a slight elevation in her alk phos. Suggestive of possible biliary tract disease but not confirmatory. She did have a leukocytosis but recent illness current pain without fever or other signs of infection suggest likely demargination versus recent viral illness. Biliary tract ultrasound was obtained which was reassuring without any evidence of cholecystitis or cholelithiasis. She remained symptom free and stable while in the emergency department. At this point she does not have any findings to suggest an acute abdomen or other worrisome etiology her biomarkers are reassuring with no evidence of ACS at this time and no evidence of biliary tract disease. Lipase was reassuring making pancreatitis less likely. He is stable at this time being discharged to outpatient follow-up with return precautions. Medical Records I reviewed the patient's medical records. Past history reviewed reveals he has a hiatal hernia listed in her problem list. Lab Data I reviewed the patient's lab results. 05/02/24 12:35 05/02/24 12:35 Labs/Radiology: Radiology Impressions Chest X-Ray 05/02/24 12:37 IMPRESSION: Platelike opacity in the right mid lung may represent scarring versus subsegmental atelectasis. Infection less likely although not excluded. Gallbladder Ultrasound 05/02/24 13:37 IMPRESSION: 1. No appreciable cholelithiasis or evidence of cholecystitis. 2. Mild prominence of the common bile duct without evidence of choledocholithiasis. 3. Moderate hepatic steatosis. Laboratory Results WBC 18.07 10^3/uL (3.29-11.43) H 05/02/24 12:35 RBC 5.57 10^6/uL (3.85-5.65) 05/02/24 12:35 Hgb 12.60 g/dL (11.27-16.99) 05/02/24 12:35 Hct 41.9 % (36-47) 05/02/24 12:35 MCV 75.2 fl (85-98) L 05/02/24 12:35 MCH 22.6 pg (27-33) L 05/02/24 12:35 MCHC 30.1 g/dL (30-55) 05/02/24 12:35 RDW 18.2 % (12.1-15.1) H 05/02/24 12:35 Plt Count 307 10^3/cmm (157-399) 05/02/24 12:35 MPV 10.9 fL (7.4-10.4) H 05/02/24 12:35 Neut % (Auto) 83.1 % 05/02/24 12:35 Lymph % (Auto) 9.4 % 05/02/24 12:35 [place] % (Auto) 6.5 % 05/02/24 12:35 Eos % (Auto) 0.2 % 05/02/24 12:35 Baso % (Auto) 0.3 % 05/02/24 12:35 Neut # (Auto) 15.02 10^3/uL (1.8-7.7) H 05/02/24 12:35 Lymph # (Auto) 1.7 10^3/uL (0.8-4.8) 05/02/24 12:35 [place] # (Auto) 1.2 10^3/uL (0.2-0.9) H 05/02/24 12:35 Eos # (Auto) 0.0 10^3/uL (0.0-0.8) 05/02/24 12:35 Baso # (Auto) 0.1 10^3/uL (0.0-0.1) 05/02/24 12:35 Nucleated RBC % (auto) 0 % 05/02/24 12:35 Nucleated RBCs # 0.0 /100WBC 05/02/24 12:35 Sodium 131 mmol/L (136-145) L 05/02/24 12:35 Potassium 4.2 mmol/L (3.5-5.1) 05/02/24 12:35 Chloride 95 mmol/L (98-107) L 05/02/24 12:35 Carbon Dioxide 19 mmol/L (22-29) L 05/02/24 12:35 Anion Gap 21.2 (5-19) H 05/02/24 12:35 BUN 16 mg/dL (6-20) 05/02/24 12:35 Creatinine 0.7 mg/dL (0.5-0.9) 05/02/24 12:35 GFR Calculation 90.1 mL/min (90-130) 05/02/24 12:35 Glucose 277 mg/dL (65-115) H 05/02/24 12:35 Calculated Osmolality 283 mOsm/kg (285-295) L 05/02/24 12:35 Calcium 9.0 mg/dL (8.5-10.5) 05/02/24 12:35 Total Bilirubin 0.7 mg/dL (0.15-1.2) 05/02/24 12:35 AST 42 U/L (0-32) H 05/02/24 12:35 ALT 49 U/L (0-33) H 05/02/24 12:35 Alkaline Phosphatase 164 U/L (35-105) H 05/02/24 12:35 Troponin T Baseline 7 ng/L (0-10) 05/02/24 12:35 Troponin T 120 Minute 6.00 ng/L (0-10) 05/02/24 14:58 Delta Troponin T -1.00 ABS# (0-10) L 05/02/24 14:58 Total Protein 7.4 g/dL (6.6-8.7) 05/02/24 12:35 Albumin 4.3 g/dL (3.5-5.2) 05/02/24 12:35 Globulin 3.1 g/dL (1.3-4.6) 05/02/24 12:35 Lipase 14 U/L (13-60) 05/02/24 12:35 All radiology interpretation(s) finalized by discharge EKG Data EKG 1: I personally reviewed and interpreted this EKG as follows: Interpretation: Contemporaneous review of resting EKG reveals a ventricular rate of 106 bpm consistent with sinus tachycardia. DC interval is normal, QRS duration is normal, corrected QT intervals normal. Normal axis. Possible P wave in V2 suggestive of left atrial enlargement. No acute ST-T wave changes noted at this time. EKG 2: I personally reviewed and interpreted this EKG as follows: Interpretation: Second contemporaneous EKG reviewed this shift reveals ventricular rate of 99 bpm consistent with sinus rhythm. She has normal DC interval, QRS duration, corrected QT interval. Normal axis. No acute ST-T wave changes and no dynamic changes from prior earlier tracing Discharge Plan Discharge Patient Disposition: Home Clinical Impression: Abdominal pain Qualifiers: Abdominal location: epigastric Qualified Code(s): R10.13 - Epigastric pain Condition: Stable Prescriptions: No Action aspirin 81 mg Tablet,Delayed Release (Dr/Ec) 81 mg PO DAILY Qty: 90 3RF Discharge Orders: Discharge ED (Routine); Ordered 05/02/24 Ordered By: Ruben Will Referrals: Karo Brooks APN [Primary Care Provider] - Discharge Diet: Advance as tolerated and Clear Liquid Discharge Activity: Resume usual activity Patient Instructions: Abdominal Pain (ED), Opioid Safety, Pain Management Activity Restrictions/Additional Instructions: As we discussed while you are in the emergency department our findings today did not suggest a serious condition such as heart attack, gallbladder disease, pneumonia or other concerning findings. He must remember that you have received a medical screening examination and that if your symptoms return or new symptoms develop you should return to this or the nearest emergency department for reevaluation for other potential causes or developments in your course of illness. We also recommend taking xelb-[id number] strength Pepcid 1 pill twice daily for the next 7 days. Coding Level of Care Code ED [employer] Machine Tender for Carol Roy
[2024-05-02 12:50] VITALS: RESP 22
[2024-05-02] MEDS: sodium chloride 0.9% 1,000 ML 999 ML IV (12:50)
[2024-05-02] MEDS: ondansetron 2 mg/ML SDV 2 mL 4 MG IVP (12:50)
[2024-05-02] MEDS: morphine 4 mg/mL SDV 1 mL IVP (12:50)
[2024-05-02 12:54] LABS: Basophils # 0.1 10^3/uL (0.0-0.1); Basophils % 0.3 %; Eosinophils % 0.2 %; Hematocrit 41.9 % (36-47); Lymphocytes # 1.7 10^3/uL (0.8-4.8); Lymphocytes % 9.4 %; Mean Corpuscular HGB Conc 30.1 g/dL (30-55); Mean Corpuscular Hemoglobin 22.6 pg (27-33); Mean Corpuscular Volume 75.2 fl (85-98); Mean Platelet Volume 10.9 fL (7.4-10.4); Monocytes # 1.2 10^3/uL (0.2-0.9); Monocytes % 6.5 %; Neutrophils # 15.02 10^3/uL (1.8-7.7); Neutrophils % 83.1 %; Nucleated Red Blood Cells % 0 %; Platelet Count 307 10^3/cmm (157-399); Red Blood Count 5.57 10^6/uL (3.85-5.65); Red Cell Distribution Width 18.2 % (12.1-15.1); White Blood Count 18.07 10^3/uL (3.29-11.43)
[2024-05-02] MEDS: famotidine 20 mg/2 mL INJ 40 MG IVP (12:54)
[2024-05-02 13:06] LABS: Troponin(5th) Baseline 7 ng/L (0-10)
[2024-05-02 13:08] LABS: Alanine Aminotransferase 49 U/L (0-33); Albumin Level 4.3 g/dL (3.5-5.2); Alkaline Phosphatase 164 U/L (35-105); Aspartate Amino Transferase 42 U/L (0-32); Blood Urea Nitrogen 16 mg/dL (6-20); Carbon Dioxide 19 mmol/L (22-29); Chloride 95 mmol/L (98-107); Creatinine Clr Calc Pharmacy 97.7031; Globulin 3.1 g/dL (1.3-4.6); Glomerular Filtration Rate 90.1 mL/min (90-130); Glucose 277 mg/dL (65-115); Lipase 14 U/L (13-60); Osmolality Calculated 283 mOsm/kg (285-295); Sodium 131 mmol/L (136-145); Total Bilirubin 0.7 mg/dL (0.15-1.2); Total Protein 7.4 g/dL (6.6-8.7)
[2024-05-02 13:10] LABS: Anion Gap 21.2 (5-19); Potassium 4.2 mmol/L (3.5-5.1)
--- NOTE | 2024-05-02 13:28 | PC.PHAR ---
Pt states no longer taking any medications except Aspirin 81mg daily. The following meds were removed from chart after verification with provider: Albuterol Inhaler, Atorvastatin 40mg, Plavix 75mg, Flonase 50mcg, Novolog FlexPen 100units/ml. Levemir FlexTouch 100units/ml, Metoprolol Tartrate 50mg, Protonix 40mg, and Trelegy Ellipta 100-62.
--- NOTE | 2024-05-02 13:37 | USR_ITS ---
PROCEDURE INFORMATION: Exam: US Abdomen; Limited Exam date and time: 05/02/2024 2:32 PM Age: 48 years old Clinical indication: Abdominal pain; Epigastric; Additional info: Epigastric pain-food related with elevated transaminases TECHNIQUE: Imaging protocol: Real time ultrasound of the abdomen with image documentation. Limited exam focused on the region of clinical interest. COMPARISON: CT chest abdpel w/*[id number] 12/29/2022 4:24 PM FINDINGS: Liver: Normal size of the liver. Normal contour. No focal lesion. Moderate steatosis. Gallbladder: Gallbladder without appreciable calculi, wall thickening, or pericholecystic fluid. Biliary ducts: No intrahepatic biliary dilatation. Mildly prominent common bile duct (5-8 mm). No distinct choledocholithiasis. Right kidney: Right kidney is unremarkable. US/US gall bladder [id number] IMPRESSION: 1. No appreciable cholelithiasis or evidence of cholecystitis. 2. Mild prominence of the common bile duct without evidence of choledocholithiasis. 3. Moderate hepatic steatosis.
--- NOTE | 2024-05-02 14:37 | ECG_ITS ---
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 Measurements Intervals [place] Rate: 99 P: 55 FL: 187 QRS: -12 QRSD: 109 T: 40 QT: 360 QTc: 463 Interpretive Statements SINUS RHYTHM POSSIBLE LEFT ATRIAL ENLARGEMENT [-0.1mV P-WAVE IN V1/V2] INCOMPLETE RIGHT BUNDLE BRANCH BLOCK [90+ ms QRS DURATION, TERMINAL R IN V1/V2, 40+ ms S IN I/aVL/V4/V5/V6] Compared to ECG 05/02/2024 12:48:55 Incomplete right bundle-branch block now present Sinus tachycardia no longer present Electronically Signed On 05-02-2024 17:03:51 CDT by Honorio Garcia M.D. [id number]
== END 2024-05-02 16:59 | disposition home or self-care (01) ==
PROVIDERS: Emergency Provider Emergency Medicine; PCP Nurse Practitioner Family
DX: R10.13 Epigastric pain (principal); Z79.82 Long term (current) use of aspirin; I25.2 Old myocardial infarction; E11.40 Type 2 diabetes mellitus with diabetic neuropathy, unspecified; J44.9 Chronic obstructive pulmonary disease, unspecified; F17.210 Nicotine dependence, cigarettes, uncomplicated
CPT/HCPCS: 36415; 71045; 76705; 80053; 83690; 84484; 85025; 93005; 96374; 96375; 99285; J2270; J2405; J3490; J7030

== ENCOUNTER 2024-08-29 08:23 | Emergency (ER) | payer SELFPAY ==
--- NOTE | 2024-08-29 08:30 | ECG_ITS ---
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 Measurements Intervals [place] Rate: 106 P: 58 [place]: 167 QRS: -36 QRSD: 101 T: 46 QT: 338 QTc: 449 Interpretive Statements SINUS TACHYCARDIA POSSIBLE LEFT ATRIAL ENLARGEMENT [-0.1mV P-WAVE IN V1/V2] LEFT AXIS DEVIATION [QRS AXIS < -30] LOW QRS VOLTAGE IN PRECORDIAL LEADS [QRS DEFLECTION < 1.0 mV IN CHEST LEADS] POSSIBLE ANTERIOR MYOCARDIAL INFARCTION , OF INDETERMINATE AGE [30 ms Q WAVE IN V3/V4, OR R < 0.2 mV IN V4] Compared to ECG 05/02/2024 14:25:33 Left-axis deviation now present.Low QRS voltage now present Myocardial infarct finding now present Sinus rhythm no longer present Incomplete right bundle-branch block no longer present Electronically Signed On 08-29-2024 19:36:50 SENIOR MAINFRAME DEVELOPER by Mary Ortiz M.D. [id number]
[2024-08-29 08:33] VITALS: BP 141/93; PULSE 102; RESP 18; TEMP 36.7; O2SAT 97; BMI 34.2
--- NOTE | 2024-08-29 09:20 | XRR_ITS ---
PROCEDURE INFORMATION: Exam: XR Chest Exam date and time: 08/29/2024 9:26 AM Age: 49 years old Clinical indication: Cough TECHNIQUE: Imaging protocol: Radiologic exam of the chest. Views: 1 view. COMPARISON: CR XR chest 1V portable [id number] 05/02/2024 12:41 PM FINDINGS: Lungs: Right perihilar opacity has a somewhat linear and nodular morphologic appearance. The degree of nodularity appears to be slightly greater on today's exam. Further evaluation with chest CT with IV contrast would be recommended. Lungs are otherwise clear. Pleural spaces: Unremarkable. No pleural effusion. No pneumothorax. Heart/Mediastinum: Unremarkable. No cardiomegaly. Bones/joints: Unremarkable. XR/XR chest 1V portable [id number] IMPRESSION: 1. Somewhat linear and nodular right perihilar opacity. Recommend further evaluation with chest CT with IV contrast.
[2024-08-29 10:01] LABS: Bilirubin Urine Negative (Negative); Blood Urine 3+ (Negative); Glucose Urine UA 3+ (Normal); Ketones Urine Negative (Negative); Leukocyte Esterase Urine Negative (Negative); Nitrate Urine Negative (Negative); Protein Urine Negative (Negative); Urine Appearance Clear (CLEAR); Urine Color Yellow (Yellow); pH Urine 6.5 (5-7)
[2024-08-29 10:06] LABS: Add Urine Microscopic? YES; Bacteria Urine Trace /hpf; Hyaline Casts Urine 0.81 /lpf; RBC Urine 0-2 /hpf (0-2); Squamous Epithelial Cell Urine 0-5 /hpf (0-5)
[2024-08-29 10:13] LABS: Add Urine Culture? No; Specific Gravity, Urine 1.035 (1.005-1.030)
--- NOTE | 2024-08-29 10:14 | W.ED.GENADLT ---
HPI - General Adult General: Chief complaint: General Medical Stated complaint: cp Time Seen by Provider: 08/29/24 09:49 History of Present Illness: 49-year-old female presents the emergency room complaining of chest pain and abdominal pain. Patient is diabetic she has had dysuria urgency and frequency rating to her flank this morning she had an episode of chest pain. She has a history of diabetes mellitus and coronary arter episode of chest pain this morning began while she was getting her kids ready for school and it resolved spontaneously she has not had other episodes prior to that or frequent episodes of chest pain recently. y disease several years ago she had a stent placed at the time of an CO she is not currently taking her clopidogrel because of financial reasons she has not stayed on her medications. Associated symptoms: Reports chest pain and nausea; Deny dyspnea or rash Related Data Previous Rx's Medication Instructions Recorded aspirin 81 mg tablet,delayed 81 mg PO DAILY #90 tabs 10/12/22 release clopidogrel 75 mg tablet 75 mg PO DAILY #30 tabs 08/29/24 metformin 500 mg tablet 500 mg PO BID #60 tabs 08/29/24 Allergies Allergy/AdvReac Type Severity Reaction Status Date / Time codeine Allergy ADR-Nightma Verified 05/02/24 12:33 re Influenza Virus Vaccines Allergy ADR-Vomitin Verified 05/02/24 12:33 g Review of Systems Const: Denies: fever(s) or chills Card: Reports: chest pain Resp: Denies: dyspnea GI: Reports: abdominal pain and nausea : Reports: flank pain, dysuria, urinary frequency and urinary urgency Musc: Denies: neck pain or back pain Skin/Breast: Denies: rash PFSH ED PFSH: Medical History ST elevation (STEMI) myocardial infarction STEMI (ST elevation myocardial infarction) Diabetic neuropathy associated with type 2 diabetes mellitus COPD (chronic obstructive pulmonary disease) 3 para 3 History of COVID-19 (~04/2020) with some non respiratory persistent symptoms Hiatal hernia Hx of supraventricular tachycardia Anxiety Diabetes mellitus, type II Currently diet controlled Surgical History History of colonoscopy (~2016) History of esophagogastroduodenoscopy (EGD) (~2016) History of tubal ligation Family History Father Cancer lung Mother Cancer lung Social History Smoking and tobacco/nicotine status: current every day tobacco/nicotine user cigarettes Alcohol intake: current Alcohol intake frequency: holidays/special occasions only Substance/Drug Use: never Household members: spouse Marital status: Physical Exam Const: COMMON NORMALS: no acute distress GENERAL APPEARANCE: cooperative and comfortable ORIENTATION/CONSCIOUSNESS: Yes awake, Yes oriented to person, Yes oriented to place and Yes oriented to time HENMT: COMMON NORMALS: normocephalic, atraumatic and hearing grossly normal bilaterally HEAD & SCALP: normocephalic and atraumatic Resp: COMMON NORMALS: normal respiratory effort, No retractions, No use of accessory muscles and clear to auscultation bilaterally AUSCULTATION: clear to auscultation bilaterally Cardio: COMMON NORMALS: regular rate, regular rhythm and No murmurs present (Cardio) RATE: regular rate RHYTHM: regular rhythm GI: COMMON NORMALS: Soft to palpation and No hepatosplenomegaly present AUSCULTATION: Yes normoactive bowel sounds PALPATION: Yes Soft to palpation, No Tenderness to palpation present (GI), No Guarding due to palpation present (GI) and Yes No hepatosplenomegaly present Extremity: COMMON NORMALS: normal to inspection, capillary refill normal, no clubbing, cyanosis or edema, no calf tenderness and no pedal edema Neuro: SENSORIUM/ORIENTATION: Yes oriented to person, Yes oriented to place and Yes oriented to time Skin: COMMON NORMALS: no rashes or lesions noted GENERAL SKIN EXAM: no rashes or lesions noted Course Vital Signs: Vital signs: Vital Signs Temperature 98.1 F 08/29/24 08:33 Pulse Rate 97 08/29/24 13:10 Respiratory Rate 18 08/29/24 08:33 Blood Pressure 130/88 08/29/24 13:10 Pulse Oximetry 95 08/29/24 13:10 Oxygen Delivery Me thod Room Air 08/29/24 13:10 [facility] - General Adult Medical Decision Making Labs imaging and EKG reviewed no finding of acute coronary syndrome. EKGs reviewed as found on the chart no acute ST elevation noted troponins trended negative. Other labs unremarkable except for hyperglycemia which is known. She is not currently getting any treatment she stopped all of her medication. Encouraged patient to restart aspirin and Plavix. These were set for additionally start metformin 500 twice daily she is in the process of establishing with a primary care doctor. Medical Records I reviewed the patient's medical records. Lab Data I reviewed the patient's lab results. 08/29/24 10:42 08/29/24 10:42 Radiology Impressions Chest X-Ray 08/29/24 09:20 IMPRESSION: 1. Somewhat linear and nodular right perihilar opacity. Recommend further evaluation with chest CT with IV contrast. Laboratory Results WBC 8.97 10^3/uL (3.29-11.43) 08/29/24 10:42 RBC 4.81 10^6/uL (3.85-5.65) 08/29/24 10:42 Hgb 10.90 g/dL (11.27-16.99) L 08/29/24 10:42 Hct 36.7 % (36-47) 08/29/24 10:42 MCV 76.3 fl (85-98) L 08/29/24 10:42 MCH 22.7 pg (27-33) L 08/29/24 10:42 MCHC 29.7 g/dL (30-55) L 08/29/24 10:42 RDW 15.8 % (12.1-15.1) H 08/29/24 10:42 Plt Count 307 10^3/cmm (157-399) 08/29/24 10:42 MPV 10.7 fL (7.4-10.4) H 08/29/24 10:42 Neut % (Auto) 67.0 % 08/29/24 10:42 Lymph % (Auto) 23.3 % 08/29/24 10:42 [place] % (Auto) 5.9 % 08/29/24 10:42 Eos % (Auto) 2.5 % 08/29/24 10:42 Baso % (Auto) 0.9 % 08/29/24 10:42 Neut # (Auto) 6.01 10^3/uL (1.8-7.7) 08/29/24 10:42 Lymph # (Auto) 2.1 10^3/uL (0.8-4.8) 08/29/24 10:42 [place] # (Auto) 0.5 10^3/uL (0.2-0.9) 08/29/24 10:42 Eos # (Auto) 0.2 10^3/uL (0.0-0.8) 08/29/24 10:42 Baso # (Auto) 0.1 10^3/uL (0.0-0.1) 08/29/24 10:42 Nucleated RBC % (auto) 0 % 08/29/24 10:42 Nucleated RBCs # 0.0 /100WBC 08/29/24 10:42 Sodium 133 mmol/L (136-145) L 08/29/24 10:42 Potassium 4.3 mmol/L (3.5-5.1) 08/29/24 10:42 Chloride 98 mmol/L (98-107) 08/29/24 10:42 Carbon Dioxide 25 mmol/L (22-29) 08/29/24 10:42 Anion Gap 14.3 (5-19) 08/29/24 10:42 BUN 12 mg/dL (6-20) 08/29/24 10:42 Creatinine 0.6 mg/dL (0.5-0.9) 08/29/24 10:42 GFR Calculation 107.2 mL/min (90-130) 08/29/24 10:42 Glucose 377 mg/dL (65-115) H 08/29/24 10:42 Calculated Osmolality 291 mOsm/kg (285-295) 08/29/24 10:42 Calcium 8.8 mg/dL (8.5-10.5) 08/29/24 10:42 Total Bilirubin 0.3 mg/dL (0.15-1.2) 08/29/24 10:42 AST 8 U/L (0-32) 08/29/24 10:42 ALT 12 U/L (0-33) 08/29/24 10:42 Alkaline Phosphatase 173 U/L (35-105) H 08/29/24 10:42 Troponin T Baseline 9 ng/L (0-10) 08/29/24 10:42 Troponin T 120 Minute 6.94 ng/L (0-10) 08/29/24 12:54 Delta Troponin T -2.06 ABS# (0-10) L 08/29/24 12:54 Total Protein 6.2 g/dL (6.6-8.7) L 08/29/24 10:42 Albumin 3.8 g/dL (3.5-5.2) 08/29/24 10:42 Globulin 2.4 g/dL (1.3-4.6) 08/29/24 10:42 HCG, Qual Negative (Negative) 08/29/24 10:42 Urine Color Yellow (Yellow) 08/29/24 09:50 Urine Appearance Clear (CLEAR) 08/29/24 09:50 Urine pH 6.5 (5-7) 08/29/24 09:50 Ur Specific [place] 1.035 (1.005-1.030) H 08/29/24 09:50 Urine Protein Negative (Negative) 08/29/24 09:50 Urine Glucose (UA) 3+ (Normal) H 08/29/24 09:50 Urine Ketones Negative (Negative) 08/29/24 09:50 Urine Blood 3+ (Negative) A 08/29/24 09:50 Urine Nitrate Negative (Negative) 08/29/24 09:50 Urine Bilirubin Negative (Negative) 08/29/24 09:50 Urine Urobilinogen 1.0 mg/dL (Negative) 08/29/24 09:50 Ur Leukocyte Esterase Negative (Negative) 08/29/24 09:50 Urine RBC 0-2 /hpf (0-2) 08/29/24 09:50 Urine WBC 11-20 /hpf (0-5) H 08/29/24 09:50 Ur Squamous Epith Cells 0-5 /hpf (0-5) 08/29/24 09:50 Amorphous Sediment Not Reportable 08/29/24 09:50 Urine Bacteria Trace /hpf (NONE) 08/29/24 09:50 Hyaline Casts 0.81 /lpf 08/29/24 09:50 All radiology interpretation(s) finalized by discharge Discharge Plan Discharge Patient Disposition: Home Clinical Impression: Diabetes, COPD (chronic obstructive pulmonary disease), H/O heart artery stent, Atypical chest pain Condition: Stable Prescriptions: New clopidogrel 75 mg tablet 75 mg PO DAILY Qty: 30 0RF metformin 500 mg tablet 500 mg PO BID Qty: 60 0RF No Action aspirin 81 mg Tablet,Delayed Release (Dr/Ec) 81 mg PO DAILY Qty: 90 3RF Discharge Orders: Discharge ED (Routine); Ordered 08/29/24 Ordered By: Nitin Brown Referrals: Karo Brooks APN [Primary Care Provider] - Discharge Diet: Usual diet Discharge Activity: Increase activity as tolerated Patient Instructions: Opioid Safety, Pain Management Activity Restrictions/Additional Instructions: Thank you for choosing [facility] for your healthcare needs today. It is very important that you follow up as instructed or that you return to the Emergency Department should you have concerns or if your condition changes or worsens in any way. You were seen in the emergency room with complaint of chest discomfort. Given your history it is very important that you take clopidogrel and baby aspirin daily. Scripts were sent in for clopidogrel and for metformin for your diabetes. Your cardiac enzymes and EKG did not show any signs of acute coronary syndrome at this time. Strongly recommend you establish with a primary care provider to have these issues addressed. Coding Level of Care Code ED [employer] Instrument Repairer for Carol Roy
[2024-08-29 11:04] LABS: Basophils # 0.1 10^3/uL (0.0-0.1); Basophils % 0.9 %; Eosinophils # 0.2 10^3/uL (0.0-0.8); Eosinophils % 2.5 %; Hematocrit 36.7 % (36-47); Lymphocytes # 2.1 10^3/uL (0.8-4.8); Lymphocytes % 23.3 %; Mean Corpuscular HGB Conc 29.7 g/dL (30-55); Mean Corpuscular Hemoglobin 22.7 pg (27-33); Mean Corpuscular Volume 76.3 fl (85-98); Mean Platelet Volume 10.7 fL (7.4-10.4); Monocytes # 0.5 10^3/uL (0.2-0.9); Monocytes % 5.9 %; Neutrophils # 6.01 10^3/uL (1.8-7.7); Nucleated Red Blood Cells % 0 %; Platelet Count 307 10^3/cmm (157-399); Red Blood Count 4.81 10^6/uL (3.85-5.65); Red Cell Distribution Width 15.8 % (12.1-15.1); White Blood Count 8.97 10^3/uL (3.29-11.43)
[2024-08-29 11:17] LABS: HCG, Serum Qual Negative (Negative)
[2024-08-29 11:25] LABS: Alanine Aminotransferase 12 U/L (0-33); Albumin Level 3.8 g/dL (3.5-5.2); Alkaline Phosphatase 173 U/L (35-105); Anion Gap 14.3 (5-19); Aspartate Amino Transferase 8 U/L (0-32); Blood Urea Nitrogen 12 mg/dL (6-20); Calcium 8.8 mg/dL (8.5-10.5); Carbon Dioxide 25 mmol/L (22-29); Chloride 98 mmol/L (98-107); Creatinine Clr Calc Pharmacy 117.0906; Globulin 2.4 g/dL (1.3-4.6); Glomerular Filtration Rate 107.2 mL/min (90-130); Glucose 377 mg/dL (65-115); Osmolality Calculated 291 mOsm/kg (285-295); Potassium 4.3 mmol/L (3.5-5.1); Sodium 133 mmol/L (136-145); Total Bilirubin 0.3 mg/dL (0.15-1.2); Total Protein 6.2 g/dL (6.6-8.7)
[2024-08-29 11:26] LABS: Troponin(5th) Baseline 9 ng/L (0-10)
[2024-08-29 11:30] VITALS: BP 154/108; PULSE 109; O2SAT 96
[2024-08-29] MEDS: cefTRIAXone 1,000 mg SDV 1000 MG IVP (11:46)
[2024-08-29 12:30] VITALS: BP 124/84; PULSE 99; O2SAT 95
--- NOTE | 2024-08-29 12:31 | ECG_ITS ---
[facility] Test Date: 2024-08-29 Pat Name: Chelsy Melendez Department: Room: Gender: Female Automobile Locator: : 1975 Requested By: Nitin Allan Order Number: [id number] Dio MD: Mary Ortiz M.D. Measurements Intervals [place] Rate: 96 P: 61 LA: 179 QRS: -14 QRSD: 105 T: 50 QT: 359 QTc: 455 Interpretive Statements SINUS RHYTHM POSSIBLE LEFT ATRIAL ENLARGEMENT [-0.1mV P-WAVE IN V1/V2] Compared to ECG 08/29/2024 08:30:02 Sinus tachycardia no longer present Left-axis deviation no longer present Myocardial infarct finding no longer present Electronically Signed On 08-29-2024 19:36:54 OPERATING SYSTEMS SPECIALIST by Mary Ortiz M.D. [email or web address]
[2024-08-29 13:10] VITALS: BP 130/88; PULSE 97; O2SAT 95
[2024-08-29 13:21] LABS: Troponin 5 2HR 6.94 ng/L (0-10)
[2024-08-29 13:24] LABS: Troponin 5 2HR Delta -2.06 ABS# (0-10)
[2024-08-29 13:52] VITALS: BP 133/94; PULSE 97; O2SAT 94
== END 2024-08-29 13:53 | disposition home or self-care (01) ==
PROVIDERS: Physician Assistant; Emergency Provider Family Medicine; PCP Nurse Practitioner Family
DX: E11.40 Type 2 diabetes mellitus with diabetic neuropathy, unspecified (principal); I25.2 Old myocardial infarction; F17.210 Nicotine dependence, cigarettes, uncomplicated; J44.9 Chronic obstructive pulmonary disease, unspecified; Z95.5 Presence of coronary angioplasty implant and graft; R07.89 Other chest pain; Z79.02 Long term (current) use of antithrombotics/antiplatelets; Z79.84 Long term (current) use of oral hypoglycemic drugs
CPT/HCPCS: 36415; 71045; 80053; 81001; 84484; 84703; 85025; 93005; 96374; 99285; J0696

== ENCOUNTER 2024-09-09 16:49 | Emergency (ER) | payer SELFPAY ==
[2024-09-09 16:52] VITALS: BP 133/83; PULSE 121; RESP 18; TEMP 36.7; O2SAT 93; BMI 32.9
[2024-09-09 16:58] LABS: Glucose Point of Care 515 mg/dL (70-110)
[2024-09-09 17:58] LABS: Basophils # 0.1 10^3/uL (0.0-0.1); Basophils % 0.7 %; Eosinophils # 0.2 10^3/uL (0.0-0.8); Eosinophils % 1.9 %; Hematocrit 37.9 % (36-47); Lymphocytes # 2.1 10^3/uL (0.8-4.8); Lymphocytes % 19.8 %; Mean Corpuscular HGB Conc 29.3 g/dL (30-55); Mean Corpuscular Hemoglobin 22.2 pg (27-33); Mean Platelet Volume 11.3 fL (7.4-10.4); Monocytes # 0.6 10^3/uL (0.2-0.9); Monocytes % 5.3 %; Neutrophils # 7.75 10^3/uL (1.8-7.7); Neutrophils % 71.8 %; Nucleated Red Blood Cells % 0 %; Platelet Count 287 10^3/cmm (157-399); Red Blood Count 4.99 10^6/uL (3.85-5.65); Red Cell Distribution Width 15.9 % (12.1-15.1); White Blood Count 10.78 10^3/uL (3.29-11.43)
[2024-09-09 18:14] LABS: Alanine Aminotransferase 11 U/L (0-33); Albumin Level 3.7 g/dL (3.5-5.2); Alkaline Phosphatase 177 U/L (35-105); Aspartate Amino Transferase 9 U/L (0-32); Blood Urea Nitrogen 8 mg/dL (6-20); Calcium 8.8 mg/dL (8.5-10.5); Carbon Dioxide 26 mmol/L (22-29); Chloride 94 mmol/L (98-107); Creatinine Clr Calc Pharmacy 114.7667; Glomerular Filtration Rate 107.2 mL/min (90-130); Glucose 464 mg/dL (65-115); Osmolality Calculated 289 mOsm/kg (285-295); Sodium 130 mmol/L (136-145); Total Bilirubin 0.2 mg/dL (0.15-1.2); Total Protein 6.7 g/dL (6.6-8.7)
[2024-09-09 18:47] LABS: Ketone (Acetest) Serum Negative (Negative)
--- NOTE | 2024-09-09 19:14 | ED_ITS ---
HPI - Recheck/Abnormal Lab/Rx 2 General: Chief Complaint: Recheck/Abnormal Lab/Rx Stated Complaint: sugar high Time Seen by Provider: 09/09/24 19:11 Source: patient Mode of arrival: ambulatory Limitations: no limitations History of Present Illness: 49-year-old female states she is a diabe tic she states that she has been taking her insulin for some time due to not being able to afford it states that her blood sugars running high and was having some cramping. She denies any vomiting or diarrhea denies any worse or improving factors. Related Data Previous Rx's Medication Instructions Recorded aspirin 81 mg tablet,delayed 81 mg PO DAILY #90 tabs 10/12/22 release clopidogrel 75 mg tablet 75 mg PO DAILY #30 tabs 08/29/24 metformin 500 mg tablet 500 mg PO BID #60 tabs 08/29/24 Allergies Allergy/AdvReac Type Severity Reaction Status Date / Time codeine Allergy ADR-Nightma Verified 09/09/24 16:58 re Influenza Virus Vaccines Allergy ADR-Vomitin Verified 09/09/24 16:58 g Review of Systems 2 Const: Denies: fever(s), chills, body aches or change in appetite ENMT: Denies: throat pain or dental pain Card: Denies: chest pain Resp: Denies: dyspnea GI: Denies: abdominal pain, nausea, vomiting or diarrhea Musc: Denies: neck pain or back pain Skin/Breast: Denies: rash Neuro: Denies: headache(s) PFSH ED 2 PFSH: Medical History ST elevation (STEMI) myocardial infarction STEMI (ST elevation myocardial infarction) Diabetic neuropathy associated with type 2 diabetes mellitus COPD (chronic obstructive pulmonary disease) 3 para 3 History of COVID-19 (~04/2020) with some non respiratory persistent symptoms Hiatal hernia Hx of supraventricular tachycardia Anxiety Diabetes mellitus, type II Currently diet controlled Surgical History History of colonoscopy (~2016) History of esophagogastroduodenoscopy (EGD) (~2017) History of tubal ligation Family History Father Cancer lung Mother Cancer lung Social History Smoking and tobacco/nicotine status: current every day tobacco/nicotine user cigarettes Alcohol intake: current Alcohol intake frequency: holidays/special occasions only Substance/Drug Use: never Household members: spouse Marital status: Female Reproductive History: Date of last menstrual period: 08/23/24 Physical Exam 2 Const: COMMON NORMALS: no acute distress, patient oriented x3 and healthy appearing HENMT: COMMON NORMALS: normocephalic and atraumatic HEAD & SCALP: n ormocephalic and atraumatic Eye: COMMON NORMALS: conjunctivae normal CONJUNCTIVA: Yes conjunctivae normal Neck/C-Spine: COMMON NORMALS: full ROM and supple Chest: COMMONS NORMALS: normal inspection of the chest Resp: COMMON NORMALS: normal respiratory effort Cardio: COMMON NORMALS: regular rate, regular rhythm and No murmurs present (Cardio) RATE: regular rate RHYTHM: regular rhythm Extremity: COMMON NORMALS: normal to inspection and full ROM Neuro: COMMON NORMALS: patient oriented x3, moves all extremities and no focal motor deficits Psych: COMMON NORMALS: mental status grossly normal, Normal thought process present and cooperative THOUGHT PROCESS: Normal thought process present Skin: COMMON NORMALS: no rashes or lesions noted and no wounds GENERAL SKIN EXAM: no rashes or lesions noted Course 2 Vital Signs: Vital signs: Vital Signs Temperature 98.0 F 09/09/24 16:52 Pulse Rate 109 H 09/09/24 20:21 Respiratory Rate 12 09/09/24 20:21 Blood Pressure 142/87 09/09/24 20:21 Pulse Oximetry 97 09/09/24 20:21 Oxygen Delivery Me thod Room Air 09/09/24 20:21 MDM - Recheck/Abnormal Lab/Rx Medical Decision Making Patient presents with hyperglycemia her blood sugar here is improving she is follow-up with PCP informed her it is important she takes her meds she is return if worsening she understands agrees to plan Medical Records I reviewed the patient's medical records. Lab Data I reviewed the patient's lab results. 09/09/24 17:30 09/09/24 17:30 Laboratory Results WBC 10.78 10^3/uL (3.29-11.43) 09/09/24 17:30 RBC 4.99 10^6/uL (3.85-5.65) 09/09/24 17:30 Hgb 11.10 g/dL (11.27-16.99) L 09/09/24 17:30 Hct 37.9 % (36-47) 09/09/24 17:30 MCV 76.0 fl (85-98) L 09/09/24 17:30 MCH 22.2 pg (27-33) L 09/09/24 17:30 MCHC 29.3 g/dL (30-55) L 09/09/24 17:30 RDW 15.9 % (12.1-15.1) H 09/09/24 17:30 Plt Count 287 10^3/cmm (157-399) 09/09/24 17:30 MPV 11.3 fL (7.4-10.4) H 09/09/24 17:30 Neut % (Auto) 71.8 % 09/09/24 17:30 Lymph % (Auto) 19.8 % 09/09/24 17:30 [place] % (Auto) 5.3 % 09/09/24 17:30 Eos % (Auto) 1.9 % 09/09/24 17:30 Baso % (Auto) 0.7 % 09/09/24 17: Neut # (Auto) 7.75 10^3/uL (1.8-7.7) H 09/09/24 17:30 Lymph # (Auto) 2.1 10^3/uL (0.8-4.8) 09/09/24 17:30 [place] # (Auto) 0.6 10^3/uL (0.2-0.9) 09/09/24 17:30 Eos # (Auto) 0.2 10^3/uL (0.0-0.8) 09/09/24 17:30 Baso # (Auto) 0.1 10^3/uL (0.0-0.1) 09/09/24 17: Nucleated RBC % (auto) 0 % 09/09/24 17: Nucleated RBCs # 0.0 /100WBC 09/09/24 17:30 Sodium 130 mmol/L (136-145) L 09/09/24 17:30 Potassium 4.0 mmol/L (3.5-5.1) 09/09/24 17:30 Chloride 94 mmol/L (98-107) L 09/09/24 17:30 Carbon Dioxide 26 mmol/L (22-29) 09/09/24 17:30 Anion Gap 14.0 (5-19) 09/09/24 17:30 BUN 8 mg/dL (6-20) 09/09/24 17:30 Creatinine 0.6 mg/dL (0.5-0.9) 09/09/24 17:30 GFR Calculation 107.2 mL/min (90-130) 09/09/24 17:30 Glucose 464 mg/dL (65-115) H 09/09/24 17:30 POC Glucose 308 mg/dL (70-110) H 09/09/24 20:22 Calculated Osmolality 289 mOsm/kg (285-295) 09/09/24 17:30 Calcium 8.8 mg/dL (8.5-10.5) 09/09/24 17:30 Total Bilirubin 0.2 mg/dL (0.15-1.2) 09/09/24 17:30 AST 9 U/L (0-32) 09/09/24 17:30 ALT 11 U/L (0-33) 09/09/24 17:30 Alkaline Phosphatase 177 U/L (35-105) H 09/09/24 17:30 Total Protein 6.7 g/dL (6.6-8.7) 09/09/24 17:30 Albumin 3.7 g/dL (3.5-5.2) 09/09/24 17:30 Globulin 3.0 g/dL (1.3-4.6) 09/09/24 17:30 Serum Ketones Negative (Negative) 09/09/24 17:30 No radiology studies performed this visit Discharge Plan Discharge Patient Disposition: Home Clinical Impression: Hyperglycemia Condition: Stable Prescriptions: No Action aspirin 81 mg Tablet,Delayed Release (Dr/Ec) 81 mg PO DAILY Qty: 90 3RF clopidogrel 75 mg tablet 75 mg PO DAILY Qty: 30 0RF metformin 500 mg tablet 500 mg PO BID Qty: 60 0RF Discharge Orders: Discharge ED (Routine); Ordered 09/09/24 Ordered By: Ami Haddad Referrals: Karo Brooks APN [Primary Care Provider] - 4-7 days Discharge Diet: Advance as tolerated Discharge Activity: Resume usual activity Patient Instructions: Diabetic Hyperglycemia (ED) Coding Level of Care Code ED [employer]Net Programmer for Carol Roy
[2024-09-09 19:27] VITALS: BP 144/91; PULSE 105; RESP 16; O2SAT 96
[2024-09-09 19:35] LABS: Glucose Point of Care 425 mg/dL (70-110)
[2024-09-09] MEDS: insulin regular-human 100 units/1 mL 12 UNIT IVP (19:53)
[2024-09-09] MEDS: sodium chloride 0.9% 1,000 ML 999 ML IV (19:56)
[2024-09-09 19:57] VITALS: BP 119/75; PULSE 108; RESP 16; O2SAT 97
[2024-09-09 20:21] VITALS: BP 142/87; PULSE 109; RESP 12; O2SAT 97
--- NOTE | 2024-09-09 20:24 | PC.NURSE ---
BG 308 @ 2023
[2024-09-09 20:28] LABS: Glucose Point of Care 308 mg/dL (70-110)
[2024-09-09 21:26] VITALS: BP 149/94; PULSE 110; RESP 16; O2SAT 97
== END 2024-09-09 21:26 | disposition home or self-care (01) ==
PROVIDERS: Emergency Medicine; Emergency Provider Emergency Medicine; PCP Nurse Practitioner Family
DX: E11.65 Type 2 diabetes mellitus with hyperglycemia (principal); E11.40 Type 2 diabetes mellitus with diabetic neuropathy, unspecified; J44.9 Chronic obstructive pulmonary disease, unspecified; F17.210 Nicotine dependence, cigarettes, uncomplicated; Z79.02 Long term (current) use of antithrombotics/antiplatelets; Z79.84 Long term (current) use of oral hypoglycemic drugs; Z79.82 Long term (current) use of aspirin
CPT/HCPCS: 36415; 36416; 80053; 82009; 82962; 85025; 96361; 96374; 99284; J1815; J7030